=== PATIENT | male | born 1970 | race Caucasian/White ===

== ENCOUNTER 2016-09-26 21:16 | Emergency (ER) | payer OTHER, SELFPAY ==
[~2016-09-26] VITALS: Ht 170.2 cm; Wt 95.1 kg
[~2016-09-26 21:16] MED LIST: FLEX10TA2 PO; IBUP200C PO; MUCINEX PO; NAPR500T PO; NASAL SPRAY; NORCOTAB PO; WELLBUTRIN PO
[2016-09-26] MEDS ORDERED: IPRATROPIUM 0.5MG/ALBUTEROL 2.5MG INH SOL UD 3ML (DUONEB)(J7620) NEB ONE (22:30)
[2016-09-26 22:35] LABS: BASO % 0.7 % (0.0-1.0); EOS # 0.1 K/mm3 (0.0-0.50); EOS % 1.6 % (0.0-3.0); LARGE UNSTAINED CELL # 0.1 K/mm3 (0.0-0.4); LARGE UNSTAINED CELL % 1.2 % (0.0-4.0); LYMPH # 1.4 K/mm3 (1.5-4.5); LYMPH % 25.3 % (24.0-44.0); MEAN CORPUSCULAR HEMOGLOBIN 30.1 pg (27.0-33.0); MEAN CORPUSCULAR HGB CONC 32.7 g/dl (32.0-36.5); MEAN CORPUSCULAR VOLUME 91.9 fl (80.0-96.0); MONO # 0.3 K/mm3 (0.0-0.8); MONO % 4.9 % (0.0-5.0); NEUTROPHILS # 3.6 K/mm3 (1.8-7.7); NEUTROPHILS % 66.3 % (36.0-66.0); PLATELET COUNT, AUTOMATED 235 k/mm3 (150-450); WHITE BLOOD COUNT 5.4 K/mm3 (4.0-10.0)
[2016-09-26 22:37] LABS: INR 0.99
[2016-09-26] MEDS ORDERED: ASPIRIN 325 MG TAB PO ONE (22:45)
[2016-09-26 22:50] LABS: ALBUMIN 3.7 GM/DL (3.2-5.2); ALBUMIN/GLOBULIN RATIO 1.48 (1.00-1.93); ALKALINE PHOSPHATASE 108 U/L (45-117); ALT/SGPT 57 U/L (12-78); ANION GAP 9 MEQ/L (8-16); AST/SGOT 30 U/L (15-37); BILIRUBIN,DIRECT 0.1 MG/DL (0.0-0.2); BILIRUBIN,TOTAL 0.4 MG/DL (0.2-1.0); BLOOD UREA NITROGEN 20 MG/DL (7-18); CALCIUM LEVEL 8.6 MG/DL (8.5-10.1); CARBON DIOXIDE LEVEL 24 MEQ/L (21-32); CHLORIDE LEVEL 111 MEQ/L (98-107); CREATININE FOR GFR 1.13 MG/DL (0.70-1.30); FREE T4 0.98 NG/DL (0.76-1.46); GLOMERULAR FILTRATION RATE > 60.0 (>60); GLUCOSE, FASTING 125 MG/DL (70-105); POTASSIUM SERUM 4.1 MEQ/L (3.5-5.1); SODIUM LEVEL 144 MEQ/L (136-145); TOTAL PROTEIN 6.2 GM/DL (6.4-8.2)
[2016-09-26] MEDS ORDERED: ISOVUE-370 76% 100ML VIAL (Q9967) As Ordered ONE (23:39)
--- NOTE | 2016-09-27 00:40 | REPUSA ---
CLINICAL HISTORY: Dyspnea, exclude PE. TECHNIQUE: Multiple incremental axial, coronal and oblique images are obtained from the thoracic inle t to the upper abdomen. Intravenous contrast material was administered as per pulmonary embolism prot ocol. COMMENTS: Moderate cardiomegaly. Mildly enlarged that mediastinal, right hilar and subcarinal lymph nodes with the largest measuring 1 .4 cm. Moderate central pulmonary venous congestion. Interstitial pulmonary edema. Groundglass densities suggestive of developing alveolar pulmonary edema. There is excellent opacification of pulmonary arterial system without evidence for pulmonary embolism . Aorta is of normal caliber without evidence for dissection or aneurysm. Small bilateral pleural effusions. There is no evidence of hilar or mediastinal lymphadenopathy. Images of the upper abdomen demonstrate no evidence of adrenal mass. The bony structures are free of lytic or blastic lesions. IMPRESSION: No evidence for pulmonary embolism. Small pleural effusions. Pulmonary edema. Interstitial and developing alveolar edema. Small pleural effusions. Mild mediastinal and hilar lymphadenopathy. Thank you for your kind referral of this patient.
[2016-09-27 05:24] VITALS: BP 126/78
[2016-09-27] MEDS ORDERED: ALBUTEROL 90 MCG/ACT 8GM HFA INHALER INH ONE (05:30)
--- NOTE | 2016-09-27 07:56 | REP ---
PA and lateral chest: Comparison is 03/05/2013. The cardiac size is enlarged as an interval change. There are no focal infiltrates or effusions. There are no interstitial infiltrates. Lung campbell otherwise clear. The mediastinum is unremarkable. There are old healed right rib fractures. Impression: Cardiomegaly. Lung campbell are clear. Signed by Lucas Lux MD 09/27/2016 07:46 A
--- NOTE | 2016-09-27 09:47 | ED PDOC ---
Post-Departure Follow-Up certified letter sent Cande Dior MD Sep 27, 2016 09:47
--- NOTE | 2016-09-27 10:41 | ECGEPIP ---
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
--- NOTE | 2016-09-27 10:49 | ECGEPIP ---
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
[2016-12-26] MEDS ORDERED: FURO40TA2 PO (20:09)
== END 2016-09-27 05:42 | disposition home or self-care (01) ==
LOC: M ED 21:16
DX: I42.9 Cardiomyopathy, unspecified (principal); R06.02 Shortness of breath; E78.5 Hyperlipidemia, unspecified; F17.200 Nicotine dependence, unspecified, uncomplicated; J90 Pleural effusion, not elsewhere classified; J81.0 Acute pulmonary edema; I51.7 Cardiomegaly
CPT/HCPCS: 36415; 71020; 71275; 80048; 80076; 82550; 82553; 83880; 84439; 84443; 85025; 85610; 85730; 93005; 93041; 94760; 99285; Q9967

== ENCOUNTER 2016-10-12 18:05 | Inpatient (IN) | payer SELFPAY ==
[~2016-10-12] VITALS: Ht 170.2 cm; Wt 92.1 kg
--- NOTE | 2016-10-12 18:44 | ECGEPIP ---
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
[2016-10-12 18:56] LABS: BASO % 0.8 % (0.0-1.0); EOS # 0.1 K/mm3 (0.0-0.50); EOS % 1.2 % (0.0-3.0); LARGE UNSTAINED CELL # 0.1 K/mm3 (0.0-0.4); LARGE UNSTAINED CELL % 1.3 % (0.0-4.0); LYMPH # 1.2 K/mm3 (1.5-4.5); LYMPH % 21.4 % (24.0-44.0); MEAN CORPUSCULAR HEMOGLOBIN 30.7 pg (27.0-33.0); MEAN CORPUSCULAR VOLUME 92.8 fl (80.0-96.0); MONO # 0.4 K/mm3 (0.0-0.8); MONO % 6.7 % (0.0-5.0); NEUTROPHILS # 3.9 K/mm3 (1.8-7.7); NEUTROPHILS % 68.5 % (36.0-66.0); PLATELET COUNT, AUTOMATED 285 k/mm3 (150-450); RED CELL DISTRIBUTION WIDTH 13.3 % (11.5-14.5); WHITE BLOOD COUNT 5.6 K/mm3 (4.0-10.0)
[2016-10-12] MEDS ORDERED: IPRATROPIUM 0.5MG/ALBUTEROL 2.5MG INH SOL UD 3ML (DUONEB)(J7620) NEB ONE (19:00)
[2016-10-12 19:05] LABS: INR 1.04
[2016-10-12 19:21] LABS: ANION GAP 8 MEQ/L (8-16); BLOOD UREA NITROGEN 21 MG/DL (7-18); CALCIUM LEVEL 8.3 MG/DL (8.5-10.1); CARBON DIOXIDE LEVEL 26 MEQ/L (21-32); CHLORIDE LEVEL 112 MEQ/L (98-107); CREATININE FOR GFR 1.13 MG/DL (0.70-1.30); GLOMERULAR FILTRATION RATE > 60.0 (>60); GLUCOSE, FASTING 103 MG/DL (70-105); POTASSIUM SERUM 4.1 MEQ/L (3.5-5.1); SODIUM LEVEL 146 MEQ/L (136-145)
[2016-10-12 19:22] LABS: ALBUMIN 3.3 GM/DL (3.2-5.2); ALBUMIN/GLOBULIN RATIO 1.06 (1.00-1.93); BILIRUBIN,DIRECT 0.2 MG/DL (0.0-0.2); BILIRUBIN,TOTAL 0.6 MG/DL (0.2-1.0); TOTAL PROTEIN 6.4 GM/DL (6.4-8.2)
[2016-10-12] MEDS ORDERED: FUROSEMIDE 40 MG/4 ML VIAL (J1940) IV ONE (20:00)
[2016-10-12] MEDS ORDERED: ASPI325T PO (20:13)
[2016-10-12] MEDS ORDERED: VITMTA PO (20:13)
[2016-10-12] MEDS ORDERED: ALBUTEROL 90 MCG/ACT 8GM HFA INHALER INH PRN (21:30)
[2016-10-12] MEDS ORDERED: NICOTINE 14 MG/24 HR TRANSDERMAL TD ONE (21:45)
[2016-10-12 23:00] VITALS: BP 144/98
--- NOTE | 2016-10-12 23:13 | HPEPDOC ---
General Date of Admission Oct 12, 2016 at 20:26 Primary Care Physician: Teddy Carpenter [facility] Attending Physician: KARINA SON MD Chief Complaint The patient is a 45-year-old male admitted with a reason for visit of Chf Exacerbation. Source: Patient, Family, RN notes reviewed, Old records Exam Limitations: No limitations Timing/Duration: Week(s) Severity: Moderate Associated Symptoms: Shortness of breath History of Present Illness Mr. Boland is a 45-year-old male who presents to [facility] emergency Department with shortness of breath. He is accompanied by his . Past medical history significant for tobacco dependence, depression, and history of cervical lymphadenitis. Patient is newly diagnosed with congestive heart failure. The patient reports that he has shortness of breath and lower extremity swelling. He reports that it started a couple weeks ago which is when he presented to the emergency department. He reports that imaging studies were performed at that time and he was told that he had an "enlarged heart." He was not admitted at that time. He states that 2 days ago he developed fluid on his legs and reports similar symptoms as a couple weeks ago. He elevated his legs which helped with the fluid some. He continued to work throughout this time and reports shortness of breath with exertion. He is on 2 L nasal cannula during my evaluation. Patient is not oxygen dependent at home. Admits to orthopnea, PND, sleeps with one pillow at night, but prefers to sleep in a recliner or a kitchen chair and states that he feels better when he is upright. Prior to couple weeks ago patient states that he is able to perform his activities of daily living, ascending descend stairs, and walk a city block without feeling short of breath. Also admits to a cough productive of green phlegm and states that the cough started a couple weeks ago. Patient denies recent upper respiratory infections or pneumonia. The only medications patient takes is an aspirin and a multivitamin which he started a couple weeks ago. Denies a history of cancer or taking any cancer medications. Patient further denies any illicit substance abuse. Chest x-ray in the emergency department showed mild CHF and a BNP in the emergency department was 971. Besides the positive review of systems listed above patient also reports occasional watery eyes, and episode of nausea which relieved spontaneously, low back pain, the occasional pain with defecation, weakness with exertion, weight gain, and edema in his lower extremities and abdomen. Hospitalist service was consulted and patient was admitted for further medical management. Home Medications Scheduled Aspirin (Aspirin) 325 Mg Tab, 325 MG PO DAILY, (Reported) Multivitamins *[facility] STOCKED* (Thera M Plus *[facility] STOCKED*) 1 Tab Tab, 1 TAB PO DAILY, (Reported) Allergies Coded Allergies: No Known Allergies (Unverified , 05/13/12) Past Medical History Medical History 1. Tobacco dependence 2. Depression 3. History of cervical lymphadenitis 4. Newly diagnosed congestive heart failure Surgical History 1. 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 Environmental exposures to chemicals related to employment Admits to tobacco dependence, half a pack to a pack per day for the last 30 years Admits to occasional alcohol use Denies illicit drug abuse Denies travel, domestic or international Review of Symptoms Constitutional: Reports: Weakness (with exertion), Other (weight gain), Denies: Chills, Fever, Night Sweats Eyes: Reports: Other (occasional watery eyes), Denies: Pain, Vision change, Conjunctivae inflammation ENT: Denies: Head Aches, Dysphagia, Sinus Congestion, Post Nasal Drip, Sore Throat, Epistaxis Skin: Denies: Rash, Lesions Pulmonary: Reports: Dyspnea (at rest and with exertion), Cough (productive of green phlegm) Cardiovascular: Reports: Orthopnea, Paroxysmal Noc. Dyspnea, Edema (bilateral lower extremities, +1 pitting edema 3/4 up the calf), Other Symptoms (abdominal fullness/distention), Denies: Chest Pain, Palpitations, Lt Headedness Gastrointestinal: Reports: Nausea (one episode with spontaneous relief), Other Symptoms (occasional pain with defecation), Denies: Vomiting, Abdominal Pain, Diarrhea, Constipation, Melena, Hematochezia Genitourinary: Denies: Dysuria, Frequency, Incontinence, Hematuria Hematologic: Denies: Bruising, Bleeding Excessively Endocrine: Denies: Polydipsia, Polyphagia, Polyuria Musculoskeletal: Reports: Back Pain (low back), Denies: Shoulder Pain, Joint Pain Neurological: Reports: Weakness (with exertion), Denies: Numbness Physical Examination General Exam: Positive: Alert, Cooperative, No Acute Distress Eye Exam: Positive: PERRLA, Conjunctiva & lids normal, EOMI, Negative: Sclera icteric, Ptosis ENT Exam: Positive: Atraumatic, Pharynx Normal, Tongue Midline, Nares Patent, Negative: Mucous membr. moist/pink (mucous members are dry), Pharyngeal Edema Neck Exam: Positive: Supple, +2 carotid pulse wo bruit, Negative: JVD, thyromegaly, Lymphadenopathy Chest Exam: Positive: Clear to auscultation, Normal air movement, Rales ( bilateral lower lobes) Heart Exam: Positive: Rate Normal, Tachycardic, Regular Rhythm, Normal S1, Normal S2, Negative: Murmurs, Rubs Telemetry: Positive: Tachycardia Abdomen Exam: Positive: Normal bowel sounds, Soft, Other (distended), Negative: Tenderness, Hepatospenomegaly, Mass, Hernia Extremity Exam: Positive: Edema (bilateral lower extremity, +1 pitting edema [address] quarters of the way up the calf), Normal pulses, Negative: Clubbing, Cyanosis, Tenderness Skin Exam: Positive: Nl turgor and temperature, Negative: Rash, Breakdown Neuro Exam: Positive: Normal Speech, Strength at 5/5 X4 ext, Cranial Nerves 3- 12 NL Other physical findings Chest x-ray IMPRESSION: Mild CHF Lower extremity duplex ultrasound IMPRESSION: No ultrasound evidence of DVT Vital Signs Vital Signs Date Time Temp Pulse Resp B/P (MAP) Pulse Ox O2 Delivery O2 Flow Rate FiO2 10/12/16 21:59 98 132/96 (108) 98 10/12/16 18:45 Nasal Cannula 2.0 10/12/16 18:05 97.9 16 Height (in): 67 Weight (kg): 99.6 BMI (kg): 34.4 Laboratory Data Labs 24H Laboratory Tests 2 10/12/16 18:41: White Blood Count 5.6, Red Blood Count 4.48, Hemoglobin 13.7L, Hematocrit 41.6L , Mean Corpuscular Volume 92.8, Mean Corpuscular Hemoglobin 30.7, Mean Corpuscular Hemoglobin Concent 33.0, Red Cell Distribution Width 13.3, Platelet Count 285, Neutrophils (%) (Auto) 68.5H, Lymphocytes (%) (Auto) 21.4L, Monocytes (%) (Auto) 6.7H, Eosinophils (%) (Auto) 1.2, Basophils (%) (Auto) 0.8 , Neutrophils # (Auto) 3.9, Lymphocytes # (Auto) 1.2L, Monocytes # (Auto) 0.4, Eosinophils # (Auto) 0.1, Basophils # (Auto) 0.0, Large Unclassified Cells % 1.3 , Large Unclassified Cells # 0.1, Lactic Acid Level 1.2, Aspartate Amino Transf (AST/SGOT) 46H, Alanine Aminotransferase (ALT/SGPT) 59, Alkaline Phosphatase 150H, Total Bilirubin 0.6, Direct Bilirubin 0.2, B-Type Natriuretic Peptide 971H , Total Protein 6.4, Albumin 3.3, Albumin/Globulin Ratio 1.06 10/12/16 18:42: Prothrombin Time 13.7, Prothromb Time International Ratio 1.04, Anion Gap 8, Glomerular Filtration Rate > 60.0, Blood Urea Nitrogen 21H, Creatinine 1.13, Sodium Level 146H, Potassium Level 4.1, Chloride Level 112H, Carbon Dioxide Level 26, Calcium Level 8.3L, Total Creatine Kinase 125, Creatine Kinase MB 1.7 , Creatine Kinase MB Relative Index 1.36, Troponin I 0.02 10/12/16 18:47: Estimated Mean Plasma Glucose 114H, Hemoglobin A1c 5.6 CBC/BMP Laboratory Tests 10/12/16 18:41 Red Blood Count 4.48, Mean Corpuscular Volume 92.8, Mean Corpuscular Hemoglobin 30.7, Mean Corpuscular Hemoglobin Concent 33.0, Red Cell Distribution Width 13.3 , Neutrophils (%) (Auto) 68.5 H, Lymphocytes (%) (Auto) 21.4 L, Monocytes (%) ( Auto) 6.7 H, Eosinophils (%) (Auto) 1.2, Basophils (%) (Auto) 0.8, Neutrophils # (Auto) 3.9, Lymphocytes # (Auto) 1.2 L, Monocytes # (Auto) 0.4, Eosinophils # (Auto) 0.1, Basophils # (Auto) 0.0 10/12/16 18:42 Calcium Level 8.3 L, Total Creatine Kinase 125 RAD Interpretation STUDY: CXR (mild CHF) Rad Actions: Report Reviewed, Films Reviewed Assessment/Plan This is a 45-year-old male with a Past medical history significant for tobacco dependence, depression, and history of cervical lymphadenitis. Patient is newly diagnosed with congestive heart failure who presents with shortness of breath secondary to congestive heart failure. Plan / VTE VTE Prophylaxis Ordered?: Yes (heparin 5000 units every 8 hours) Plan Plan Congestive heart failure Clinical diagnosis. BNP 971. Chest x-ray shows mild CHF. Family history is alarming for underlying hereditary cardiac disease. Ruled out infection, substance abuse, cancer medications as a cause for patient's congestive heart failure. Obtaining echocardiogram to determine type of congestive heart failure. Obtaining liver profile, lipids, TSH, A1c, serial cardiac enzymes. Initiating Lasix 40 mg IV twice a day. Patient admitted to the progressive care unit. Oxygen therapy orders to maintain saturations above 92%. Albuterol inhaler as needed. Fluid restriction of 1500 mL. Disposition Admit: Progressive care unit Anticipated hospitalization: 2 nights Attending: Dr. Orellana Diet: Continue Current (no added salt) Activity: Encourage Ambulation Medications: Change to IV Diagnostics: Check Labs, Repeat Labs in AM, TTE Anticipated Discharge: Home MING SINGH Oct 12, 2016 23:13
[2016-10-12] MEDS ORDERED: SLF 3 ML SYR IV PRN (23:30)
[2016-10-13 04:02] VITALS: BP 139/99
[2016-10-13] MEDS: HEPARIN SOD (PORCINE) 5000 UNITS/ML VIAL SC SCH ×3 (04:06→22:00)
[2016-10-13] MEDS: SLF 3 ML SYR IV SCH ×3 (04:06→22:00)
[2016-10-13 05:35] LABS: BASO % 0.9 % (0.0-1.0); EOS # 0.1 K/mm3 (0.0-0.50); EOS % 1.2 % (0.0-3.0); LARGE UNSTAINED CELL # 0.1 K/mm3 (0.0-0.4); LARGE UNSTAINED CELL % 1.3 % (0.0-4.0); LYMPH # 1.3 K/mm3 (1.5-4.5); LYMPH % 21.9 % (24.0-44.0); MEAN CORPUSCULAR HGB CONC 32.5 g/dl (32.0-36.5); MEAN CORPUSCULAR VOLUME 92.2 fl (80.0-96.0); MONO # 0.4 K/mm3 (0.0-0.8); MONO % 6.5 % (0.0-5.0); NEUTROPHILS # 3.8 K/mm3 (1.8-7.7); NEUTROPHILS % 68.3 % (36.0-66.0); PLATELET COUNT, AUTOMATED 250 k/mm3 (150-450); RED CELL DISTRIBUTION WIDTH 13.5 % (11.5-14.5); WHITE BLOOD COUNT 5.6 K/mm3 (4.0-10.0)
[2016-10-13 05:52] LABS: ANION GAP 9 MEQ/L (8-16); BLOOD UREA NITROGEN 18 MG/DL (7-18); CALCIUM LEVEL 8.4 MG/DL (8.5-10.1); CARBON DIOXIDE LEVEL 26 MEQ/L (21-32); CHLORIDE LEVEL 110 MEQ/L (98-107); CREATININE FOR GFR 1.02 MG/DL (0.70-1.30); GLOMERULAR FILTRATION RATE > 60.0 (>60); GLUCOSE, FASTING 119 MG/DL (70-105); POTASSIUM SERUM 3.5 MEQ/L (3.5-5.1); SODIUM LEVEL 145 MEQ/L (136-145)
--- NOTE | 2016-10-13 07:29 | REP ---
DEEP VENOUS ULTRASONOGRAPHY BILATERAL THIGHS, RULE OUT DVT: REASON: Pain and swelling bilaterally. TECHNIQUE: Multiple ultrasonographic images of the deep venous structures of the thigh were obtained from the common femoral vein to the popliteal vein along with Doppler interrogation and color flow Doppler images. FINDINGS: There is no abnormal echogenic material seen within any of the visualized deep venous structures that would suggest acute thrombosis. Coaptation is unremarkable throughout. Doppler interrogation shows an expected response to respiratory variability and augmentation. The color flow images show what appears to be a normal vascular pattern throughout. IMPRESSION: There is no ultrasonographic evidence of deep venous thrombosis involving any of the visualized deep venous structures of the bilateral thighs, as described above. Signed by Tre Tidwell DO 10/13/2016 02:44 P
--- NOTE | 2016-10-13 07:30 | REP ---
REASON: Dyspnea and cough. COMPARISON: PA and lateral view of the chest, 09/26/2016. The technique utilized in obtaining the radiograph has magnified the cardiac silhouette and accentuated the interstitial markings. There is global cardiomegaly, status quo. Once again, there is diffuse increase in the interstitial markings throughout the lung campbell accentuated by technique. No acute patchy parenchymal opacities or pleural effusions have developed. There is no change in the osseous structures. IMPRESSION: Cardiomegaly and mild CHF. Signed by Tre Tidwell DO 10/13/2016 02:44 P
[2016-10-13] MEDS: FUROSEMIDE 40 MG/4 ML VIAL (J1940) IV SCH ×2 (07:56→17:43)
[2016-10-13] MEDS: NICOTINE 14 MG/24 HR TRANSDERMAL TD SCH (07:57)
[2016-10-13] MEDS: ASPIRIN 325 MG TAB PO SCH (07:57)
[2016-10-13 08:00] VITALS: BP 138/90
[2016-10-13] MEDS ORDERED: POTASSIUM CHLORIDE 10 MEQ SR TABLET PO ONE (08:00)
[2016-10-13 12:00] VITALS: BP 116/69
--- NOTE | 2016-10-13 14:33 | IPNPDOC ---
Text Note Date of Service The patient was seen on 10/13/16. NOTE Subjective: The patient states his dyspnea is improving. Denies any chest pain/ palpitations. Objective: Vitals: (see below) General: No acute distress, laying comfortably in bed. HEENT: Moist mucous membranes. Neck: No JVD or lymphadenopathy Cardiac: RRR, No murmurs Pulm: Coarse crackles at the bases bilaterally. B/l. No wheezing, rhonchi Abd: NT/ND + BS Ext: Trace to 1+ pitting edema bilateral lower extremities. No cyanosis. Labs (see below) Images: Assessment/Plan 1. Decompensated Congestive heart failure- ? Systolic versus diastolic. Echocardiogram pending. Strong family history of underlying cardiac disease. We will continue IV diuresis. Patient will need outpatient cardiology follow-up with Dr. Duff. 2. Nonsustained ventricular tachycardia, asymptomatic. Continue to monitor on telemetry. Replace K, mag. We'll start on low-dose beta mercedes. 2. Tobacco abuse- cessation consulted 3. History of depression follow-up outpatient 4. DVT prophy: Out of bed ambulating VS,Fishbone, I+O VS, Fishbone, I+O Laboratory Tests 10/12/16 18:41 Red Blood Count 4.48, Mean Corpuscular Volume 92.8, Mean Corpuscular Hemoglobin 30.7, Mean Corpuscular Hemoglobin Concent 33.0, Red Cell Distribution Width 13.3 , Neutrophils (%) (Auto) 68.5 H, Lymphocytes (%) (Auto) 21.4 L, Monocytes (%) ( Auto) 6.7 H, Eosinophils (%) (Auto) 1.2, Basophils (%) (Auto) 0.8, Neutrophils # (Auto) 3.9, Lymphocytes # (Auto) 1.2 L, Monocytes # (Auto) 0.4, Eosinophils # (Auto) 0.1, Basophils # (Auto) 0.0 10/12/16 18:42 Calcium Level 8.3 L, Total Creatine Kinase 125 10/13/16 04:48 Red Blood Count 4.56, Mean Corpuscular Volume 92.2, Mean Corpuscular Hemoglobin 30.0, Mean Corpuscular Hemoglobin Concent 32.5, Red Cell Distribution Width 13.5 , Neutrophils (%) (Auto) 68.3 H, Lymphocytes (%) (Auto) 21.9 L, Monocytes (%) ( Auto) 6.5 H, Eosinophils (%) (Auto) 1.2, Basophils (%) (Auto) 0.9, Neutrophils # (Auto) 3.8, Lymphocytes # (Auto) 1.3 L, Monocytes # (Auto) 0.4, Eosinophils # (Auto) 0.1, Basophils # (Auto) 0.0, Calcium Level 8.4 L, Total Creatine Kinase 99 Vital Signs Date Time Temp Pulse Resp B/P (MAP) Pulse Ox O2 Delivery O2 Flow Rate FiO2 10/13/16 08:00 97.9 93 18 138/90 (106) 96 Room Air 10/12/16 18:45 2.0 I&O- Last 24 Hours up to 6 AM 10/13/16 06:00 Intake Total 300 ml Output Total 4860 ml Balance -4560 ml KIM MCDOWELL MD Oct 13, 2016 14:33
[2016-10-13 15:34] LABS: ANION GAP 8 MEQ/L (8-16); BLOOD UREA NITROGEN 18 MG/DL (7-18); CALCIUM LEVEL 8.1 MG/DL (8.5-10.1); CARBON DIOXIDE LEVEL 29 MEQ/L (21-32); CHLORIDE LEVEL 108 MEQ/L (98-107); CREATININE FOR GFR 0.99 MG/DL (0.70-1.30); GLOMERULAR FILTRATION RATE > 60.0 (>60); GLUCOSE, FASTING 100 MG/DL (70-105); MAGNESIUM LEVEL 2.1 MG/DL (1.8-2.4); SODIUM LEVEL 145 MEQ/L (136-145)
[2016-10-13] MEDS: METOPROLOL TART 12.5 MG PER 1/2 TAB PO SCH ×2 (15:39→21:00)
[2016-10-13 16:00] VITALS: BP 117/80
[2016-10-13] MEDS ORDERED: LISINOPRIL *2.5 MG* TAB PO ONE (16:00)
[2016-10-13] MEDS: SPIRONOLACTONE 12.5MG PER 1/2 TABLET PO SCH (17:43)
--- NOTE | 2016-10-13 18:01 | ECHO ---
DATE OF PROCEDURE: 10/13/2016 REFERRING PHYSICIAN: Hillary Waddell DO INDICATION: Dyspnea. Congestive heart failure. HEIGHT: 170 cm WEIGHT: 100 kg DIMENSIONS: IVS: 1.0 LV: 7.1 LVPW: 1.1 LA: 4.6 Aorta: 3.1 FINDINGS: The study is of good technical quality. Left ventricle is severely dilated and severely globally hypokinetic. I estimate overall ejection fraction (EF) in neighborhood of 10-15%. Right ventricle is also dilated and hypokinetic. Both atria appear dilated. Aortic, mitral, tricuspid and pulmonic valves all appear normal. No pericardial effusion is noted. Inferior vena cava is markedly dilated and there is no appreciable collapse with respiration indicative of very high central venous pressure. Aortic root is normal. Aortic arch was not visualized. Abdominal aorta was poorly seen, but grossly appears normal. Doppler interrogation reveals competent aortic valve. There is mild or maybe hehy-ex-yaexrwyl mitral insufficiency and probably moderate tricuspid insufficiency. Calculated pulmonary artery pressure is in high 40s, low 50s corresponding to at least moderate pulmonary hypertension. Pulmonic valve is functionally competent. Mitral inflow pattern and tissue Doppler imaging of mitral annulus revealed restrictive filling pattern indicative of very high left ventricle and diastolic pressure. Tissue Doppler velocities of mitral annulus are 3.4 and 7.3 cm/s respectively. CONCLUSIONS: 1. Study is of good technical quality. 2. Severely dilated globally hypokinetic left ventricle with severe left ventricle (LV) systolic dysfunction. Advanced diastolic dysfunction. 3. Yxbn-lq-zgpoogyq mitral insufficiency and moderate tricuspid insufficiency. 4. Very high central venous pressure and at least moderate pulmonary hypertension. COMMENT: Subacute bacterial endocarditis (SBE) prophylaxis is not recommended. Overall study most consistent with nonischemic cardiomyopathy. MTDD
[2016-10-13 20:00] VITALS: BP 120/79
[2016-10-13 23:59] VITALS: BP 111/74
[2016-10-14 04:00] VITALS: BP 129/82
[2016-10-14] MEDS: SLF 3 ML SYR IV SCH ×3 (05:22→20:39)
[2016-10-14] MEDS: HEPARIN SOD (PORCINE) 5000 UNITS/ML VIAL SC SCH ×3 (05:22→20:39)
[2016-10-14 06:07] LABS: BASO % 0.8 % (0.0-1.0); EOS # 0.1 K/mm3 (0.0-0.50); EOS % 2.8 % (0.0-3.0); LYMPH # 1.4 K/mm3 (1.5-4.5); LYMPH % 31.3 % (24.0-44.0); MEAN CORPUSCULAR HEMOGLOBIN 30.4 pg (27.0-33.0); MEAN CORPUSCULAR HGB CONC 33.1 g/dl (32.0-36.5); MONO # 0.3 K/mm3 (0.0-0.8); MONO % 6.6 % (0.0-5.0); NEUTROPHILS # 2.4 K/mm3 (1.8-7.7); NEUTROPHILS % 57.5 % (36.0-66.0); PLATELET COUNT, AUTOMATED 272 k/mm3 (150-450); RED CELL DISTRIBUTION WIDTH 13.6 % (11.5-14.5); WHITE BLOOD COUNT 4.2 K/mm3 (4.0-10.0)
[2016-10-14 06:25] LABS: ANION GAP 7 MEQ/L (8-16); BLOOD UREA NITROGEN 23 MG/DL (7-18); CALCIUM LEVEL 8.6 MG/DL (8.5-10.1); CARBON DIOXIDE LEVEL 28 MEQ/L (21-32); CHLORIDE LEVEL 110 MEQ/L (98-107); CREATININE FOR GFR 1.01 MG/DL (0.70-1.30); GLOMERULAR FILTRATION RATE > 60.0 (>60); GLUCOSE, FASTING 99 MG/DL (70-105); POTASSIUM SERUM 4.4 MEQ/L (3.5-5.1); SODIUM LEVEL 145 MEQ/L (136-145)
[2016-10-14 07:40] VITALS: BP 102/61
[2016-10-14] MEDS ORDERED: ENTER DRUG NAME HERE (PATIENT'S OWN MED) INH SCH (09:00)
[2016-10-14] MEDS ORDERED: FUROSEMIDE 40 MG/4 ML VIAL (J1940) IV SCH (09:00)
[2016-10-14] MEDS: NICOTINE 14 MG/24 HR TRANSDERMAL TD SCH (10:15)
[2016-10-14] MEDS: ASPIRIN 325 MG TAB PO SCH (10:18)
[2016-10-14] MEDS: LISINOPRIL *2.5 MG* TAB PO SCH (10:18)
[2016-10-14] MEDS: SPIRONOLACTONE 12.5MG PER 1/2 TABLET PO SCH (10:18)
[2016-10-14] MEDS: METOPROLOL TART 12.5 MG PER 1/2 TAB PO SCH ×2 (10:19→20:39)
[2016-10-14 12:00] VITALS: BP 101/67
--- NOTE | 2016-10-14 14:52 | IPNPDOC ---
Text Note Date of Service The patient was seen on 10/14/16. NOTE Subjective: The patient states his dyspnea is improving. Denies any chest pain/ palpitations. Objective: Vitals: (see below) General: No acute distress, laying comfortably in bed. HEENT: Moist mucous membranes. Neck: No JVD or lymphadenopathy Cardiac: RRR, No murmurs Pulm: Coarse crackles at the bases bilaterally. B/l. No wheezing, rhonchi Abd: NT/ND + BS Ext: Trace pitting edema bilateral lower extremities. No cyanosis. Labs (see below) Images: Echocardiogram 10/13/16 FINDINGS: The study is of good technical quality. Left ventricle is severely dilated and severely globally hypokinetic. I estimate overall ejection fraction (EF) in neighborhood of 10-15%. Right ventricle is also dilated and hypokinetic. Both atria appear dilated. Aortic, mitral, tricuspid and pulmonic valves all appear normal. No pericardial effusion is noted. Inferior vena cava is markedly dilated and there is no appreciable collapse with respiration indicative of very high central venous pressure. Aortic root is normal. Aortic arch was not visualized. Abdominal aorta was poorly seen, but grossly appears normal. Doppler interrogation reveals competent aortic valve. There is mild or maybe ocxk-ph-asduvlfc mitral insufficiency and probably moderate tricuspid insufficiency. Calculated pulmonary artery pressure is in high 40s, low 50s corresponding to at least moderate pulmonary hypertension. Pulmonic valve is functionally competent. Mitral inflow pattern and tissue Doppler imaging of mitral annulus revealed restrictive filling pattern indicative of very high left ventricle and diastolic pressure. Tissue Doppler velocities of mitral annulus are 3.4 and 7.3 cm/s respectively. CONCLUSIONS: 1. Study is of good technical quality. 2. Severely dilated globally hypokinetic left ventricle with severe left ventricle (LV) systolic dysfunction. Advanced diastolic dysfunction. 3. Yokp-ws-vuhubyuy mitral insufficiency and moderate tricuspid insufficiency. 4. Very high central venous pressure and at least moderate pulmonary hypertension. Assessment/Plan 1. Decompensated Severe Systolic Heart Failure- Echocardiogram (see above). Strong family history of underlying cardiac disease. We will continue diuresis. Cardiology consulted. Started on low dose BB, ACEi, Spironolactone. Will need life vest prior to d/c. Will need cardiac cath fairly soon. Patient will need outpatient cardiology follow-up with Dr. Duff. 2. Nonsustained ventricular tachycardia, asymptomatic. Continue to monitor on telemetry. Replace K, mag. We'll start on low-dose beta mercedes. 2. Tobacco abuse- cessation consulted 3. History of depression follow-up outpatient DVT prophy: Out of bed ambulating Prognosis guarded. VS,Fishbone, I+O VS, Fishbone, I+O Laboratory Tests 10/13/16 14:55 Calcium Level 8.1 L 10/14/16 05:42 Calcium Level 8.6, Red Blood Count 4.64, Mean Corpuscular Volume 92.0, Mean Corpuscular Hemoglobin 30.4, Mean Corpuscular Hemoglobin Concent 33.1, Red Cell Distribution Width 13.6, Neutrophils (%) (Auto) 57.5, Lymphocytes (%) (Auto) 31.3, Monocytes (%) (Auto) 6.6 H, Eosinophils (%) (Auto) 2.8, Basophils (%) ( Auto) 0.8, Neutrophils # (Auto) 2.4, Lymphocytes # (Auto) 1.4 L, Monocytes # ( Auto) 0.3, Eosinophils # (Auto) 0.1, Basophils # (Auto) 0.0 Vital Signs Date Time Temp Pulse Resp B/P (MAP) Pulse Ox O2 Delivery O2 Flow Rate FiO2 10/14/16 12:00 97.8 60 18 101/67 (78) 100 Room Air 10/13/16 20:00 1.0 I&O- Last 24 Hours up to 6 AM 10/14/16 06:00 Intake Total 1480 ml Output Total 3175 ml Balance -1695 ml KIM MCDOWELL MD Oct 14, 2016 14:52
[2016-10-14 16:00] VITALS: BP 100/66
[2016-10-14 20:01] VITALS: BP 113/73
--- NOTE | 2016-10-14 20:59 | CR ---
DATE OF CONSULTATION: 10/14/2016 REFERRING PROVIDER: Teddy Orellana MD PRIMARY CARE PROVIDER: CHIVO Anton REASON FOR CONSULT: Cardiomyopathy. HISTORY OF PRESENT ILLNESS: 45-year-old male with no prior history of hypertension, hyperlipidemia, diabetes mellitus, who has been having shortness of breath with activities, relieved with rest. About two weeks ago, he was at the ER, evaluated and discharged home. He was told that he has an enlarged heart and he was told to make an appointment to the office. He was discharged home on bronchodilators, but has not been taking it. He was not getting better with progressive shortness of breath, and he has developed increasing bilateral pedal edema, and also he was having orthopnea. He decided to come to the emergency room a couple of days ago on 10/12/2016 and was admitted with further management and monitoring with a diagnosis of decompensated congestive heart failure (CHF). He had an echocardiogram done this hospitalization on 10/12/2016 and it revealed a severely depressed global left ventricular systolic function estimated at 10-15% with severe global hypokinesis and a markedly dilated left ventricle. There was mild to moderate mitral regurgitation, moderate tricuspid regurgitation with probably moderate pulmonary hypertension, and a restrictive filling pattern was noted across the mitral valve annulus consistent with elevated left ventricular end diastolic pressure. While on telemetry, it was reported that he had a 6 beat run of ventricular tachycardia. Cardiology consult was called. When I saw Mr. Sven Boland this morning, he was sitting up in his bed in no acute distress at rest and his was at the bedside. He denies any chest pain or palpitations. He says that he feels better with less shortness of breath and no orthopnea. His pedal edema has improved significantly. He was able to sleep much better. He denies any prior history of syncope or near syncope. He denies any cough or hemoptysis or fever. He has no nausea, vomiting, diarrhea, melena or hematemesis. He has no focal manifestation. According to the , in the month of July he had an upper respiratory tract infection. There is no prior history of hypertension, hyperlipidemia, diabetes mellitus, significant valvular heart disease, congestive heart failure (CHF), atrial fibrillation, CVA, cardiomyopathy, sudden cardiac . There is no history of kidney disease, thyroid disorders, liver disease. PAST SURGICAL HISTORY: Positive for a fine needle aspiration of left cervical lymph node. Otherwise, unremarkable. MEDICATIONS PRIOR TO COMING TO HOSPITAL: - aspirin 325 mg by mouth daily CURRENT MEDICATIONS: - furosemide 40 mg by mouth daily - lisinopril 2.5 mg by mouth daily - aspirin 325 mg by mouth daily - nicotine patch applied daily as directed, 14 mg - metoprolol tartrate 12.5 mg by mouth twice a day - vcvmewmewgplu36.5 mg by mouth daily - heparin subcu - Proventil MDI two puffs every 6 hours as needed for shortness of breath FAMILY HISTORY: Positive for coronary artery disease in his mother. 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 He denies any EtOH abuse. He does smoke, less than one pack per day of cigarettes. He denies any illicit drugs. He has an adult son. ADVANCE DIRECTIVES: Patient is a FULL CODE. ALLERGIES: No known drug allergies. PHYSICAL EXAMINATION: On examination, patient is alert and oriented, in no acute distress at rest. His vital signs this evening reveal a blood pressure of 100/666 with a pulse of 61, respirations 20, and his maximum temperature is 97.3 degrees Fahrenheit with an oxygen saturation of 100% on room air. For 10/13/2016, he was in a negative fluid balance of 2.8 liters and on 10/12, it was 3.3 liters. His weight on admission was 99.6 kg and today is 91.1 kg. HEENT: Atraumatic. NECK: Supple, I could not appreciate any jugular venous distention (JVD) or carotid bruits while sitting up in the bed. LUNGS: Did not reveal any wheezing and there was minimal crackles at the bases. HEART EXAMINATION: Revealed normal S1 and S2 without gallops. The PMI is displaced inferiorly and laterally. There is no rub. There is a systolic murmur grade 1-2/6 at the lower left sternal border and at the apex with some minimal radiation to the axilla. ABDOMEN: Soft, nontender. Bowel sounds are active. EXTREMITIES: Reveal only trace bilateral ankle edema. No cyanosis or clubbing. NEUROLOGICAL EXAMINATION: Negative for focal deficits. LABS: CBC done today revealed a WBC of 4.2, hemoglobin 14.1, hematocrit 42.7 and platelets of 272,000. On admission, the CBC revealed a WBC of 5.6, hemoglobin 13.7, hematocrit 41.6 and platelets 285,000. PT on admission was 13.7 with an INR of 1.04. BMP on admission revealed a sodium of 145, potassium 4.4, chloride 110, CO2 28, BUN 23, creatinine 1.01, GFR more than 60, fasting glucose 99, and calcium 8.6. Serum Troponin was negative at 0.02. BNP on admission was 971. Liver enzymes on admission revealed a total bilirubin of 0.6, direct bilirubin of 0.2, AST 46, ALT 59 and alkaline phosphatase 150. Total protein was 6.4 and albumin 3.3. Lipid profile revealed a total cholesterol of 151, LDL 103.0, HDL 33, and total cholesterol/HDL ratio of 4.5. TSH is 2.40. Electrocardiogram on admission, 10/12/2016 at 18:38:38, revealed sinus tachycardia at 109 beats per minute, left axis deviation, left anterior hemiblock, left atrial abnormality, poor R wave progression. Persistent prior anteroseptal infarct, and IVCD. There is also nonspecific STT abnormalities. Last EKG on 09/27/2016 at 3:28:23 no remarkable change, but heartbeat was slower and there was slightly better R wave progression from V1 through V3. Chest x-ray on 10/12/2016 revealed cardiomegaly and mild congestive heart failure (CHF). Doppler of the lower extremities on 10/12/2016 revealed no evidence of deep vein thrombosis (DVT). IMPRESSION: Cardiomyopathy, severe with decompensated congestive heart failure (CHF). New diagnosed and started on treatment. Prior to that, patient was not on any cardiac medications. He has responded to current medications and will continue the same. It was reported that he had a 6 beat run of ventricular tachycardia, but could not be identified in the chart. The case was discussed with his hospitalist and also with the patient and his . He will continue current medications and a LifeVest will be arranged for him. He will need a cardiac catheterization looking for underlying coronary artery disease and this will be arranged for him as an outpatient. He most likely will need a implantable automatic implantable cardioverter-defibrillator (AICD). I do not believe that his function will improve enough to avoid that. He was strongly advised to avoid alcohol. A low salt diet was discussed with him as well as his , and he will monitor his weight daily and inform the office if he gains more than 3-4 pounds overnight. He has manifested understanding. He will need a BMP done to check his BUN, creatinine and serum potassium in about a week upon discharge from the hospital. This also was discussed with him as well as his . It was a pleasure to participate in the care of Mr. Sven Boland for his underlying cardiac condition. I will continue to monitor him along with you while in the hospital and upon discharge as an outpatient. Please do not hesitate to call if you have any questions. ACE
[2016-10-14 23:38] VITALS: BP 110/66
[2016-10-15 04:02] VITALS: BP 116/81
[2016-10-15] MEDS: SLF 3 ML SYR IV SCH ×3 (05:23→21:02)
[2016-10-15] MEDS: HEPARIN SOD (PORCINE) 5000 UNITS/ML VIAL SC SCH ×3 (05:23→21:02)
[2016-10-15 05:48] LABS: EOS # 0.1 K/mm3 (0.0-0.50); EOS % 1.9 % (0.0-3.0); LARGE UNSTAINED CELL # 0.1 K/mm3 (0.0-0.4); LARGE UNSTAINED CELL % 1.1 % (0.0-4.0); LYMPH # 1.3 K/mm3 (1.5-4.5); LYMPH % 25.2 % (24.0-44.0); MEAN CORPUSCULAR HGB CONC 32.4 g/dl (32.0-36.5); MEAN CORPUSCULAR VOLUME 92.5 fl (80.0-96.0); MONO # 0.3 K/mm3 (0.0-0.8); MONO % 5.6 % (0.0-5.0); NEUTROPHILS # 3.1 K/mm3 (1.8-7.7); NEUTROPHILS % 65.1 % (36.0-66.0); PLATELET COUNT, AUTOMATED 280 k/mm3 (150-450); RED CELL DISTRIBUTION WIDTH 13.5 % (11.5-14.5); WHITE BLOOD COUNT 4.8 K/mm3 (4.0-10.0)
[2016-10-15 05:56] LABS: ANION GAP 7 MEQ/L (8-16); BLOOD UREA NITROGEN 27 MG/DL (7-18); CALCIUM LEVEL 8.7 MG/DL (8.5-10.1); CARBON DIOXIDE LEVEL 28 MEQ/L (21-32); CHLORIDE LEVEL 108 MEQ/L (98-107); CREATININE FOR GFR 1.15 MG/DL (0.70-1.30); GLOMERULAR FILTRATION RATE > 60.0 (>60); GLUCOSE, FASTING 101 MG/DL (70-105); POTASSIUM SERUM 3.8 MEQ/L (3.5-5.1); SODIUM LEVEL 143 MEQ/L (136-145)
[2016-10-15 07:45] VITALS: BP 116/75
[2016-10-15] MEDS: NICOTINE 14 MG/24 HR TRANSDERMAL TD SCH (08:21)
[2016-10-15] MEDS: METOPROLOL TART 12.5 MG PER 1/2 TAB PO SCH ×2 (08:22→21:02)
[2016-10-15] MEDS: ASPIRIN 325 MG TAB PO SCH (08:23)
[2016-10-15] MEDS: LISINOPRIL *2.5 MG* TAB PO SCH (08:23)
[2016-10-15] MEDS: FUROSEMIDE 40 MG TAB PO SCH (08:23)
[2016-10-15] MEDS: SPIRONOLACTONE 12.5MG PER 1/2 TABLET PO SCH (08:23)
[2016-10-15] MEDS ORDERED: POTASSIUM CHLORIDE 10 MEQ SR TABLET PO ONE (08:30)
[2016-10-15 12:00] VITALS: BP 111/70
--- NOTE | 2016-10-15 15:07 | IPNPDOC ---
Text Note Date of Service The patient was seen on 10/15/16. NOTE Subjective: Feels well. Denies any chest pain/palpitations/SOB. Objective: Vitals: (see below) General: No acute distress, laying comfortably in bed. HEENT: Moist mucous membranes. Neck: No JVD or lymphadenopathy Cardiac: RRR, No murmurs Pulm: Coarse crackles at the bases bilaterally. B/l. No wheezing, rhonchi Abd: NT/ND + BS Ext: No edema. No cyanosis. Labs (see below) Images: Echocardiogram 10/13/16 FINDINGS: The study is of good technical quality. Left ventricle is severely dilated and severely globally hypokinetic. I estimate overall ejection fraction (EF) in neighborhood of 10-15%. Right ventricle is also dilated and hypokinetic. Both atria appear dilated. Aortic, mitral, tricuspid and pulmonic valves all appear normal. No pericardial effusion is noted. Inferior vena cava is markedly dilated and there is no appreciable collapse with respiration indicative of very high central venous pressure. Aortic root is normal. Aortic arch was not visualized. Abdominal aorta was poorly seen, but grossly appears normal. Doppler interrogation reveals competent aortic valve. There is mild or maybe qlqo-ks-eyfrfqhy mitral insufficiency and probably moderate tricuspid insufficiency. Calculated pulmonary artery pressure is in high 40s, low 50s corresponding to at least moderate pulmonary hypertension. Pulmonic valve is functionally competent. Mitral inflow pattern and tissue Doppler imaging of mitral annulus revealed restrictive filling pattern indicative of very high left ventricle and diastolic pressure. Tissue Doppler velocities of mitral annulus are 3.4 and 7.3 cm/s respectively. CONCLUSIONS: 1. Study is of good technical quality. 2. Severely dilated globally hypokinetic left ventricle with severe left ventricle (LV) systolic dysfunction. Advanced diastolic dysfunction. 3. Xftv-ni-elhweqrn mitral insufficiency and moderate tricuspid insufficiency. 4. Very high central venous pressure and at least moderate pulmonary hypertension. Assessment/Plan 1. Decompensated Severe Systolic Heart Failure- Echocardiogram (see above). Strong family history of underlying cardiac disease. We will continue diuresis. Cardiology consulted. Started on low dose BB, ACEi, Spironolactone. Will need life vest prior to d/c. Will need cardiac cath fairly soon. Patient will need outpatient cardiology follow-up with Dr. Duff. Awaiting Life Vest arrangements. Patient doesn't not have insurance and is unable to afford the $500 down payment for lease. Will discuss with CM regarding Medicaid/[place] care. 2. Nonsustained ventricular tachycardia, asymptomatic. Continue to monitor on telemetry. Replace K, mag. We'll start on low-dose beta mercedes. 2. Tobacco abuse- cessation consulted 3. History of depression follow-up outpatient DVT prophy: Out of bed ambulating Prognosis guarded. Pending Life Vest VS,Fishbone, I+O VS, Fishbone, I+O Laboratory Tests 10/15/16 05:02 Red Blood Count 4.60, Mean Corpuscular Volume 92.5, Mean Corpuscular Hemoglobin 30.0, Mean Corpuscular Hemoglobin Concent 32.4, Red Cell Distribution Width 13.5 , Neutrophils (%) (Auto) 65.1, Lymphocytes (%) (Auto) 25.2, Monocytes (%) (Auto ) 5.6 H, Eosinophils (%) (Auto) 1.9, Basophils (%) (Auto) 1.0, Neutrophils # ( Auto) 3.1, Lymphocytes # (Auto) 1.3 L, Monocytes # (Auto) 0.3, Eosinophils # ( Auto) 0.1, Basophils # (Auto) 0.0, Calcium Level 8.7 Vital Signs Date Time Temp Pulse Resp B/P (MAP) Pulse Ox O2 Delivery O2 Flow Rate FiO2 10/15/16 12:00 96.0 80 18 111/70 (84) 100 Room Air 10/13/16 20:00 1.0 I&O- Last 24 Hours up to 6 AM 10/15/16 06:00 Intake Total 1880 ml Output Total 450 ml Balance 1430 ml KIM MCDOWELL MD Oct 15, 2016 15:07
[2016-10-15 16:00] VITALS: BP 110/72
[2016-10-15 19:24] VITALS: BP 109/77
[2016-10-15 19:30] VITALS: BP 109/77
[2016-10-16] VITALS (8 sets, daily range): BP systolic 102–127; BP diastolic 58–78
[2016-10-16] MEDS: SLF 3 ML SYR IV SCH ×3 (05:00→20:43)
[2016-10-16] MEDS: HEPARIN SOD (PORCINE) 5000 UNITS/ML VIAL SC SCH ×3 (05:00→20:42)
[2016-10-16 05:50] LABS: BASO % 0.9 % (0.0-1.0); LARGE UNSTAINED CELL # 0.1 K/mm3 (0.0-0.4); LARGE UNSTAINED CELL % 1.2 % (0.0-4.0); LYMPH # 1.3 K/mm3 (1.5-4.5); LYMPH % 24.6 % (24.0-44.0); MEAN CORPUSCULAR HEMOGLOBIN 30.5 pg (27.0-33.0); MEAN CORPUSCULAR HGB CONC 32.8 g/dl (32.0-36.5); MEAN CORPUSCULAR VOLUME 92.8 fl (80.0-96.0); MONO # 0.3 K/mm3 (0.0-0.8); NEUTROPHILS # 3.3 K/mm3 (1.8-7.7); NEUTROPHILS % 66.2 % (36.0-66.0); PLATELET COUNT, AUTOMATED 253 k/mm3 (150-450); RED CELL DISTRIBUTION WIDTH 13.5 % (11.5-14.5)
[2016-10-16 06:03] LABS: ANION GAP 11 MEQ/L (8-16); BLOOD UREA NITROGEN 30 MG/DL (7-18); CALCIUM LEVEL 8.3 MG/DL (8.5-10.1); CARBON DIOXIDE LEVEL 26 MEQ/L (21-32); CHLORIDE LEVEL 107 MEQ/L (98-107); CREATININE FOR GFR 1.15 MG/DL (0.70-1.30); GLOMERULAR FILTRATION RATE > 60.0 (>60); GLUCOSE, FASTING 92 MG/DL (70-105); POTASSIUM SERUM 3.9 MEQ/L (3.5-5.1); SODIUM LEVEL 144 MEQ/L (136-145)
--- NOTE | 2016-10-16 07:45 | ECGEPIP ---
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
[2016-10-16] MEDS: LISINOPRIL *2.5 MG* TAB PO SCH (08:04)
[2016-10-16] MEDS: SPIRONOLACTONE 12.5MG PER 1/2 TABLET PO SCH (08:05)
[2016-10-16] MEDS: ASPIRIN 325 MG TAB PO SCH (08:05)
[2016-10-16] MEDS: METOPROLOL TART 12.5 MG PER 1/2 TAB PO SCH ×2 (08:05→20:42)
[2016-10-16] MEDS: FUROSEMIDE 40 MG TAB PO SCH (08:05)
[2016-10-16] MEDS: NICOTINE 14 MG/24 HR TRANSDERMAL TD SCH (08:07)
[2016-10-16] MEDS ORDERED: POTASSIUM CHLORIDE 10 MEQ SR TABLET PO ONE (09:00)
--- NOTE | 2016-10-16 13:49 | IPNPDOC ---
Text Note Date of Service The patient was seen on 10/16/16. NOTE Subjective: Denies any chest pain/palpitations/SOB. No acute changes overnight. Could not afford down payment for LifeVest. Awaiting case management assistance with financial situation. Objective: Vitals: (see below) General: No acute distress, laying comfortably in bed. HEENT: Moist mucous membranes. Neck: No JVD or lymphadenopathy Cardiac: RRR, No murmurs Pulm: Coarse crackles at the bases bilaterally. B/l. No wheezing, rhonchi Abd: NT/ND + BS Ext: No edema. No cyanosis. Labs (see below) Images: Echocardiogram 10/13/16 FINDINGS: The study is of good technical quality. Left ventricle is severely dilated and severely globally hypokinetic. I estimate overall ejection fraction (EF) in neighborhood of 10-15%. Right ventricle is also dilated and hypokinetic. Both atria appear dilated. Aortic, mitral, tricuspid and pulmonic valves all appear normal. No pericardial effusion is noted. Inferior vena cava is markedly dilated and there is no appreciable collapse with respiration indicative of very high central venous pressure. Aortic root is normal. Aortic arch was not visualized. Abdominal aorta was poorly seen, but grossly appears normal. Doppler interrogation reveals competent aortic valve. There is mild or maybe eygd-mk-nriokzmy mitral insufficiency and probably moderate tricuspid insufficiency. Calculated pulmonary artery pressure is in high 40s, low 50s corresponding to at least moderate pulmonary hypertension. Pulmonic valve is functionally competent. Mitral inflow pattern and tissue Doppler imaging of mitral annulus revealed restrictive filling pattern indicative of very high left ventricle and diastolic pressure. Tissue Doppler velocities of mitral annulus are 3.4 and 7.3 cm/s respectively. CONCLUSIONS: 1. Study is of good technical quality. 2. Severely dilated globally hypokinetic left ventricle with severe left ventricle (LV) systolic dysfunction. Advanced diastolic dysfunction. 3. Wplw-ks-lmcncoou mitral insufficiency and moderate tricuspid insufficiency. 4. Very high central venous pressure and at least moderate pulmonary hypertension. Assessment/Plan 1. Decompensated Severe Systolic Heart Failure- Echocardiogram (see above). Strong family history of underlying cardiac disease. We will continue diuresis. Cardiology consulted. Started on low dose BB, ACEi, Spironolactone. Will need life vest prior to d/c. Will need cardiac cath fairly soon. Patient will need outpatient cardiology follow-up with Dr. Duff. Awaiting Life Vest arrangements. Patient doesn't not have insurance and is unable to afford the $500 down payment for lease. Will discuss with CM regarding Medicaid/[place] care. 2. Nonsustained ventricular tachycardia, asymptomatic. Continue to monitor on telemetry. Replace K, mag. We'll start on low-dose beta mercedes. 2. Tobacco abuse- cessation consulted 3. History of depression follow-up outpatient DVT prophy: Out of bed ambulating Prognosis guarded. Pending Life Vest VS,Fishbone, I+O VS, Fishbone, I+O Laboratory Tests 10/16/16 05:28 Red Blood Count 4.38, Mean Corpuscular Volume 92.8, Mean Corpuscular Hemoglobin 30.5, Mean Corpuscular Hemoglobin Concent 32.8, Red Cell Distribution Width 13.5 , Neutrophils (%) (Auto) 66.2 H, Lymphocytes (%) (Auto) 24.6, Monocytes (%) ( Auto) 6.0 H, Eosinophils (%) (Auto) 1.0, Basophils (%) (Auto) 0.9, Neutrophils # (Auto) 3.3, Lymphocytes # (Auto) 1.3 L, Monocytes # (Auto) 0.3, Eosinophils # (Auto) 0.0, Basophils # (Auto) 0.0, Calcium Level 8.3 L Vital Signs Date Time Temp Pulse Resp B/P (MAP) Pulse Ox O2 Delivery O2 Flow Rate FiO2 10/16/16 08:05 85 127/78 10/16/16 08:00 98.1 18 98 Room Air 10/13/16 20:00 1.0 I&O- Last 24 Hours up to 6 AM 10/16/16 06:00 Intake Total 2130 ml Output Total 650 ml Balance 1480 ml KIM MCDOWELL MD Oct 16, 2016 13:49
[2016-10-17] MEDS: HEPARIN SOD (PORCINE) 5000 UNITS/ML VIAL SC SCH ×3 (02:59→22:00)
[2016-10-17 04:21] VITALS: BP 126/82
[2016-10-17 05:20] LABS: BASO % 0.9 % (0.0-1.0); EOS % 0.6 % (0.0-3.0); LARGE UNSTAINED CELL # 0.1 K/mm3 (0.0-0.4); LARGE UNSTAINED CELL % 1.5 % (0.0-4.0); LYMPH # 1.6 K/mm3 (1.5-4.5); LYMPH % 24.7 % (24.0-44.0); MEAN CORPUSCULAR HEMOGLOBIN 30.3 pg (27.0-33.0); MEAN CORPUSCULAR HGB CONC 32.7 g/dl (32.0-36.5); MEAN CORPUSCULAR VOLUME 92.8 fl (80.0-96.0); MONO # 0.4 K/mm3 (0.0-0.8); MONO % 6.6 % (0.0-5.0); NEUTROPHILS % 65.8 % (36.0-66.0); PLATELET COUNT, AUTOMATED 286 k/mm3 (150-450); RED CELL DISTRIBUTION WIDTH 13.4 % (11.5-14.5)
[2016-10-17 05:34] LABS: CALCIUM LEVEL 8.4 MG/DL (8.5-10.1); CREATININE FOR GFR 1.37 MG/DL (0.70-1.30); GLOMERULAR FILTRATION RATE 59.3 (>60); POTASSIUM SERUM 4.6 MEQ/L (3.5-5.1)
[2016-10-17] MEDS: SLF 3 ML SYR IV SCH ×3 (06:00→22:00)
[2016-10-17 08:00] VITALS: BP 103/63
[2016-10-17] MEDS ORDERED: FUROSEMIDE 20 MG TAB PO SCH (09:00)
[2016-10-17] MEDS ORDERED: FUROSEMIDE 40 MG TAB PO SCH (09:00)
[2016-10-17] MEDS: NICOTINE 14 MG/24 HR TRANSDERMAL TD SCH (09:00)
[2016-10-17] MEDS: ASPIRIN 325 MG TAB PO SCH (09:21)
[2016-10-17] MEDS: METOPROLOL TART 12.5 MG PER 1/2 TAB PO SCH (09:21)
[2016-10-17 12:00] VITALS: BP 117/74
[2016-10-17] MEDS ORDERED: SPIR25TA2 PO (12:56)
[2016-10-17] MEDS ORDERED: FURO20TA2 PO (12:56)
[2016-10-17] MEDS ORDERED: LISI2.5T4 PO (12:56)
[2016-10-17] MEDS ORDERED: METO1TAB87 PO (12:56)
--- NOTE | 2016-10-17 14:58 | DS.PDOC ---
Discharge Summary General Date of Admission Oct 12, 2016 at 20:26 Date of Discharge 10/17/16 Attending Physician: KIM MCDOWELL MD Specialist/Consultants Involve: NORMA VINSON MD Discharge Summary PROCEDURES PERFORMED DURING STAY: None. ADMITTING/DISCHARGE DIAGNOSES: 1. Decompensated systolic heart failure EF 10-15% 2. Nonsustained ventricular tachycardia 3. Tobacco abuse 4. Acute kidney injury 5. History of depression COMPLICATIONS/CHIEF COMPLAINT: Shortness of breath HISTORY OF PRESENT ILLNESS/HOSPITAL COURSE: This is a 45-year-old male with past medical history of tobacco abuse, depression presents with dyspnea. Patient was found to be in decompensated congestive heart failure and was diuresed well. Echocardiogram did not EF of 10-15%. Dr. Vinson was consulted and the patient was started on lisinopril, beta mercedes, Lasix, spironolactone. Since then the patient's dyspnea significantly improved. He also had a LifeVest that was ordered and is to be worn until the patient's cardiac function improves , or pre-to an AICD has been decided on. Patient will follow up closely with Dr. Vinson and will likely need a cardiac catheterization fairly soon to rule out coronary artery disease as a cause. Patient is now hemodynamically stable and will be discharged home. Patient is to follow-up with Dr. Vinson in one week and will need to have a BMP to be done on Monday to ensure that his renal function improves by then. Patient is to return to the ED symptoms worsen. DISCHARGE MEDICATIONS: Please see below. ALLERGIES: Please see below. PHYSICAL EXAMINATION ON DISCHARGE: Vitals: (see below) General: No acute distress, laying comfortably in bed. HEENT: Moist mucous membranes. Neck: No JVD or lymphadenopathy Cardiac: RRR, No murmurs Pulm: Coarse crackles at the bases bilaterally. B/l. No wheezing, rhonchi Abd: NT/ND + BS Ext: No edema. No cyanosis. LABORATORY DATA: Please see below. IMAGING: Echocardiogram 10/13/16 FINDINGS: The study is of good technical quality. Left ventricle is severely dilated and severely globally hypokinetic. I estimate overall ejection fraction (EF) in neighborhood of 10-15%. Right ventricle is also dilated and hypokinetic. Both atria appear dilated. Aortic, mitral, tricuspid and pulmonic valves all appear normal. No pericardial effusion is noted. Inferior vena cava is markedly dilated and there is no appreciable collapse with respiration indicative of very high central venous pressure. Aortic root is normal. Aortic arch was not visualized. Abdominal aorta was poorly seen, but grossly appears normal. Doppler interrogation reveals competent aortic valve. There is mild or maybe geww-zh-iuujrfbz mitral insufficiency and probably moderate tricuspid insufficiency. Calculated pulmonary artery pressure is in high 40s, low 50s corresponding to at least moderate pulmonary hypertension. Pulmonic valve is functionally competent. Mitral inflow pattern and tissue Doppler imaging of mitral annulus revealed restrictive filling pattern indicative of very high left ventricle and diastolic pressure. Tissue Doppler velocities of mitral annulus are 3.4 and 7.3 cm/s respectively. CONCLUSIONS: 1. Study is of good technical quality. 2. Severely dilated globally hypokinetic left ventricle with severe left ventricle (LV) systolic dysfunction. Advanced diastolic dysfunction. 3. Vkvd-br-wjpndkrp mitral insufficiency and moderate tricuspid insufficiency. 4. Very high central venous pressure and at least moderate pulmonary hypertension. PROGNOSIS: Guarded ACTIVITY: As tolerated. DIET: Low-sodium DISCHARGE PLAN/DISPOSITION: DISCHARGE INSTRUCTIONS: 1. Follow-up with PCP and Dr. Vinson in one week. BMP to be done on Monday with results to be sent to Dr. Vinson. Hold spironolactone until then. DISCHARGE CONDITION: Stable. TIME SPENT ON DISCHARGE: Greater than 30 minutes. Vital Signs/I&Os Vital Signs Date Time Temp Pulse Resp B/P (MAP) Pulse Ox O2 Delivery O2 Flow Rate FiO2 10/17/16 12:00 97.7 66 18 117/74 (88) 94 Room Air 10/13/16 20:00 1.0 I&O- Last 24 Hours up to 6 AM 10/17/16 06:00 Intake Total 1680 ml Output Total 500 ml Balance 1180 ml Laboratory Data Labs 24H Laboratory Tests 2 10/17/16 04:43: White Blood Count 6.0, Red Blood Count 4.68, Hemoglobin 14.2, Hematocrit 43.4, Mean Corpuscular Volume 92.8, Mean Corpuscular Hemoglobin 30.3, Mean Corpuscular Hemoglobin Concent 32.7, Red Cell Distribution Width 13.4, Platelet Count 286, Neutrophils (%) (Auto) 65.8, Lymphocytes (%) (Auto) 24.7, Monocytes ( %) (Auto) 6.6H, Eosinophils (%) (Auto) 0.6, Basophils (%) (Auto) 0.9, Neutrophils # (Auto) 4.0, Lymphocytes # (Auto) 1.6, Monocytes # (Auto) 0.4, Eosinophils # (Auto) 0.0, Basophils # (Auto) 0.0, Large Unclassified Cells % 1.5 , Large Unclassified Cells # 0.1, Anion Gap 11, Glomerular Filtration Rate 59.3L , Blood Urea Nitrogen 35H, Creatinine 1.37H, Sodium Level 143, Potassium Level 4.6, Chloride Level 107, Carbon Dioxide Level 25, Calcium Level 8.4L CBC/BMP Laboratory Tests 10/17/16 04:43 Red Blood Count 4.68, Mean Corpuscular Volume 92.8, Mean Corpuscular Hemoglobin 30.3, Mean Corpuscular Hemoglobin Concent 32.7, Red Cell Distribution Width 13.4 , Neutrophils (%) (Auto) 65.8, Lymphocytes (%) (Auto) 24.7, Monocytes (%) (Auto ) 6.6 H, Eosinophils (%) (Auto) 0.6, Basophils (%) (Auto) 0.9, Neutrophils # ( Auto) 4.0, Lymphocytes # (Auto) 1.6, Monocytes # (Auto) 0.4, Eosinophils # (Auto ) 0.0, Basophils # (Auto) 0.0, Calcium Level 8.4 L Discharge Medications Scheduled Aspirin (Aspirin) 325 Mg Tab, 325 MG PO DAILY, (Reported) Furosemide (Furosemide) 20 Mg Tab, 20 MG PO DAILY Lisinopril (Lisinopril) 2.5 Mg Tab, 2.5 MG PO DAILY Metoprolol Tartrate (Metoprolol Tartrate) 25 Mg Tab, 12.5 MG PO BID Multivitamins *[facility] STOCKED* (Thera M Plus *[facility] STOCKED*) 1 Tab Tab, 1 TAB PO DAILY, (Reported) Spironolactone (Spironolactone) 25 Mg Tab, 12.5 MG PO DAILY start on if BMP shows improvement of kidney function. Allergies Coded Allergies: No Known Allergies (Unverified , 05/13/12) KIM MCDOWELL MD Oct 17, 2016 14:58
[2016-10-17 16:00] VITALS: BP 119/82
[2016-10-17] MEDS ORDERED: METOPROLOL TART 25 MG TABLET PO ONE (19:00)
[2016-10-17 19:42] LABS: ANION GAP 11 MEQ/L (8-16); BLOOD UREA NITROGEN 32 MG/DL (7-18); CALCIUM LEVEL 8.5 MG/DL (8.5-10.1); CARBON DIOXIDE LEVEL 24 MEQ/L (21-32); CHLORIDE LEVEL 105 MEQ/L (98-107); CREATININE FOR GFR 1.41 MG/DL (0.70-1.30); GLOMERULAR FILTRATION RATE 57.4 (>60); GLUCOSE, FASTING 163 MG/DL (70-105); MAGNESIUM LEVEL 2.1 MG/DL (1.8-2.4); POTASSIUM SERUM 3.9 MEQ/L (3.5-5.1); SODIUM LEVEL 140 MEQ/L (136-145)
[2016-10-17 20:00] VITALS: BP 109/73
[2016-10-17 23:59] VITALS: BP 109/74
[2016-10-18 04:45] VITALS: BP 109/71
[2016-10-18] MEDS: HEPARIN SOD (PORCINE) 5000 UNITS/ML VIAL SC SCH (05:31)
[2016-10-18] MEDS: SLF 3 ML SYR IV SCH (06:00)
[2016-10-18 07:21] LABS: BASO % 0.5 % (0.0-1.0); EOS % 0.6 % (0.0-3.0); LARGE UNSTAINED CELL # 0.1 K/mm3 (0.0-0.4); LARGE UNSTAINED CELL % 1.7 % (0.0-4.0); LYMPH # 1.3 K/mm3 (1.5-4.5); LYMPH % 20.1 % (24.0-44.0); MEAN CORPUSCULAR HEMOGLOBIN 30.5 pg (27.0-33.0); MEAN CORPUSCULAR HGB CONC 32.8 g/dl (32.0-36.5); MONO # 0.4 K/mm3 (0.0-0.8); MONO % 6.7 % (0.0-5.0); NEUTROPHILS % 70.3 % (36.0-66.0); PLATELET COUNT, AUTOMATED 263 k/mm3 (150-450); RED CELL DISTRIBUTION WIDTH 13.5 % (11.5-14.5); WHITE BLOOD COUNT 5.7 K/mm3 (4.0-10.0)
[2016-10-18 07:28] LABS: ANION GAP 10 MEQ/L (8-16); BLOOD UREA NITROGEN 31 MG/DL (7-18); CALCIUM LEVEL 8.8 MG/DL (8.5-10.1); CARBON DIOXIDE LEVEL 25 MEQ/L (21-32); CHLORIDE LEVEL 105 MEQ/L (98-107); CREATININE FOR GFR 1.24 MG/DL (0.70-1.30); GLOMERULAR FILTRATION RATE > 60.0 (>60); GLUCOSE, FASTING 120 MG/DL (70-105); POTASSIUM SERUM 4.3 MEQ/L (3.5-5.1); SODIUM LEVEL 140 MEQ/L (136-145)
[2016-10-18 08:00] VITALS: BP 108/72
[2016-10-18 09:00] VITALS: BP 109/71
[2016-10-18] MEDS ORDERED: METOPROLOL TART 25 MG TABLET PO SCH (09:00)
[2016-10-18] MEDS: LISINOPRIL *2.5 MG* TAB PO SCH (09:00)
[2016-10-18] MEDS: ASPIRIN 325 MG TAB PO SCH (09:00)
[2016-10-18] MEDS: NICOTINE 14 MG/24 HR TRANSDERMAL TD SCH (09:00)
[2016-10-18] MEDS: SPIRONOLACTONE 12.5MG PER 1/2 TABLET PO SCH (09:00)
[2016-10-18] MEDS ORDERED: METO1TAB87 PO (10:47)
--- NOTE | 2016-10-18 15:59 | ECGEPIP ---
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
--- NOTE | 2016-10-18 17:19 | DSES ---
DATE OF ADMISSION: 10/12/2016 DATE OF DISCHARGE: 10/18/2016 ADDENDUM: The patient is going to be discharged on 10/18/2016 as his defibrillating vest had not yet been delivered. ' On the day of discharge, he has no complaints of pain. No chest pain or shortness of breath. He is somewhat disappointed that he is still in the hospital, especially since he does not have insurance and he does not have a clear pathway to insurance that he can understand. Temperature 98, pulse 82, respiratory rate 18, blood pressure 108/72, 96% on room air. He is awake, appropriately interactive. Breathing is symmetrical and rested. He does have ectopy on the monitor. Beta mercedes was increased yesterday. White cell count is 5.7, hemoglobin 14.4, creatinine is 1.2. Discharge instructions from yesterday are the same with the addition of metoprolol 25 mg by mouth twice a day, up from 12.5 mg by mouth twice a day.
[2016-12-26] MEDS ORDERED: FURO40TA2 PO (20:09)
== END 2016-10-18 13:30 | disposition home or self-care (01) | DRG 194 ==
LOC: M ED 18:05 → M ED INP 20:26 → M PCU 22:55
PROVIDERS: ADMIT Internal Medicine; ATTEND Internal Medicine
DX: I50.21 Acute systolic (congestive) heart failure (principal); F17.200 Nicotine dependence, unspecified, uncomplicated; N17.9 Acute kidney failure, unspecified; F32.9 Major depressive disorder, single episode, unspecified; I47.2 Ventricular tachycardia; Z79.82 Long term (current) use of aspirin; Z79.899 Other long term (current) drug therapy; I42.9 Cardiomyopathy, unspecified

== ENCOUNTER → 2016-10-19 | Outpatient (CLI) | payer SELFPAY ==
[~2016-10-19] MED LIST changes: +ASPI325T PO; +FURO20TA2 PO; +FURO40TA2 PO; +LASI40TA PO; +LISI2.5T3 PO; +LISI2.5T4 PO; +METO1TAB87 PO; +METO25TA4 PO; +SPIR25TA2 PO; +VITMTA PO
[2016-10-19 11:31] LABS: ANION GAP 9 MEQ/L (8-16); BLOOD UREA NITROGEN 29 MG/DL (7-18); CALCIUM LEVEL 8.8 MG/DL (8.5-10.1); CARBON DIOXIDE LEVEL 26 MEQ/L (21-32); CHLORIDE LEVEL 103 MEQ/L (98-107); CREATININE FOR GFR 1.27 MG/DL (0.70-1.30); GLOMERULAR FILTRATION RATE > 60.0 (>60); GLUCOSE, FASTING 97 MG/DL (70-105); POTASSIUM SERUM 4.3 MEQ/L (3.5-5.1); SODIUM LEVEL 138 MEQ/L (136-145)
== END ==
LOC: M LAB 10:16
PROVIDERS: ATTEND Internal Medicine
DX: I11.0 Hypertensive heart disease with heart failure (principal); I50.9 Heart failure, unspecified

== ENCOUNTER → 2016-11-14 | Outpatient (REF) | payer SELFPAY ==
[2016-11-14 12:44] LABS: ANION GAP 9 MEQ/L (8-16); BLOOD UREA NITROGEN 19 MG/DL (7-18); CARBON DIOXIDE LEVEL 28 MEQ/L (21-32); CHLORIDE LEVEL 101 MEQ/L (98-107); CREATININE FOR GFR 0.98 MG/DL (0.70-1.30); GLOMERULAR FILTRATION RATE > 60.0 (>60); GLUCOSE, FASTING 104 MG/DL (70-105); POTASSIUM SERUM 3.5 MEQ/L (3.5-5.1); SODIUM LEVEL 138 MEQ/L (136-145)
== END ==
LOC: M LABDRAW1 11:58
PROVIDERS: ATTEND Nurse Practitioner Family
DX: I42.9 Cardiomyopathy, unspecified (principal)

== ENCOUNTER 2016-12-01 23:06 | Emergency (ER) | payer SELFPAY ==
[~2016-12-01] VITALS: Ht 170.2 cm; Wt 223.0 kg
[~2016-12-01 23:06] MED LIST changes: -FURO40TA2 PO; -LASI40TA PO; -LISI2.5T3 PO; -METO25TA4 PO
[2016-12-01] MEDS ORDERED: LASI40TA PO (23:38)
[2016-12-02] MEDS ORDERED: FUROSEMIDE 100 MG/10 ML VIAL (J1940) IV ONE (01:30)
[2016-12-02 01:51] VITALS: BP 150/81
--- NOTE | 2016-12-02 07:47 | ECGEPIP ---
Stationary ECG Study [facility] - ED Test Date: 2016-12-02 Pat Name: WILLIAM CASTILLO Department: Room: - Gender: M [employer] Operator: : 1970 Requested By: BOONE MASON Order Number: [id number] Reading MD: Cande Dior Measurements Intervals [place] Rate: 98 P: 269 [place]: 140 QRS: -34 QRSD: 107 T: 60 QT: 356 QTc: 455 Interpretive Statements ECTOPIC ATRIAL RHYTHM LOW QRS VOLTAGE IN EXTREMITY LEADS INFERIOR MYOCARDIAL INFARCTION, PROBABLY OLD ANTEROSEPTAL MYOCARDIAL INFARCTION, OF INDETERMINATE AGE Electronically Signed On 12-02-2016 7:47:05 EDT by Cande Dior
[2016-12-26] MEDS ORDERED: FURO40TA2 PO (20:09)
== END 2016-12-02 01:53 | disposition home or self-care (01) ==
LOC: M ED 23:06
DX: R60.0 Localized edema (principal); I10 Essential (primary) hypertension; I51.9 Heart disease, unspecified; F17.200 Nicotine dependence, unspecified, uncomplicated; Z79.82 Long term (current) use of aspirin; Z79.899 Other long term (current) drug therapy
CPT/HCPCS: 93005; 96374; 99283; J1940

== ENCOUNTER 2016-12-07 13:05 | Inpatient (IN) | payer SELFPAY ==
[~2016-12-07] VITALS: Ht 170.2 cm; Wt 101.1 kg
[~2016-12-07 13:05] MED LIST changes: +LASI40TA PO
[2016-12-07] MEDS ORDERED: FUROSEMIDE 40 MG/4 ML VIAL (J1940) IV ONE (13:45)
[2016-12-07 13:48] LABS: BASO % 0.5 % (0.0-1.0); EOS % 0.6 % (0.0-3.0); IMMATURE GRANULOCYTE % 0.2 % (0-0); LYMPH # 0.9 10^3/uL (1.5-4.5); LYMPH % 14.1 % (24.0-44.0); MEAN CORPUSCULAR HEMOGLOBIN 26.5 pg (27.0-33.0); MEAN CORPUSCULAR HGB CONC 32.3 g/dl (32.0-36.5); MONO # 0.5 10^3/uL (0.0-0.8); MONO % 8.5 % (0.0-5.0); NEUTROPHILS # 4.8 10^3/uL (1.8-7.7); NEUTROPHILS % 76.1 % (36.0-66.0); PLATELET COUNT, AUTOMATED 248 10^3/uL (150-450); RED CELL DISTRIBUTION WIDTH 14.6 % (11.5-14.5); WHITE BLOOD COUNT 6.3 10^3/uL (4.0-10.0)
--- NOTE | 2016-12-07 14:02 | REP ---
Portable chest, 01:49 p.m., single AP view, patient sitting: Comparison is 2016. Cardiomegaly and diffuse interstitial coarsening are again identified, compatible with interstitial infiltrates. These infiltrates could be chronic, subacute, acute or acute on chronic. There are no focal infiltrates. No pleural effusions. The raya, mediastinum, and bony thorax are. Impression: Chronic cardiomegaly and chronic interstitial coarsening are again identified, unchanged from the comparison study. Signed by Lucas Lux MD 12/07/2016 01:54 P
[2016-12-07 14:12] LABS: ALBUMIN 3.1 GM/DL (3.2-5.2); ALBUMIN/GLOBULIN RATIO 1.07 (1.00-1.93); ALKALINE PHOSPHATASE 295 U/L (45-117); ALT/SGPT 114 U/L (12-78); ANION GAP 8 MEQ/L (8-16); AST/SGOT 49 U/L (15-37); BILIRUBIN,TOTAL 1.6 MG/DL (0.2-1.0); BLOOD UREA NITROGEN 22 MG/DL (7-18); CALCIUM LEVEL 8.6 MG/DL (8.5-10.1); CARBON DIOXIDE LEVEL 26 MEQ/L (21-32); CHLORIDE LEVEL 102 MEQ/L (98-107); CREATININE FOR GFR 0.95 MG/DL (0.70-1.30); GLOMERULAR FILTRATION RATE > 60.0 (>60); GLUCOSE, FASTING 116 MG/DL (70-105); POTASSIUM SERUM 3.5 MEQ/L (3.5-5.1); SODIUM LEVEL 136 MEQ/L (136-145)
[2016-12-07] MEDS ORDERED: POTASSIUM CHLORIDE 10 MEQ SR TABLET PO ONE (17:30)
[2016-12-07] MEDS ORDERED: LISI2.5T3 PO (17:33)
[2016-12-07] MEDS ORDERED: METO25TA4 PO (17:33)
[2016-12-07] MEDS ORDERED: ISOVUE-370 76% 100ML VIAL (Q9967) As Ordered ONE (17:54)
--- NOTE | 2016-12-07 17:55 | HPEPDOC ---
[facility] Medical History & Physical Date of Admission Dec 07, 2016 History and Physical PRIMARY CARE PROVIDER: Dr. Garcia's office ATTENDING: Dr. Diane Rae CHIEF COMPLAINT: Worsening lower extremity edema HISTORY OF PRESENT ILLNESS: This is a 46-year-old male past medical history of a systolic heart failure EF of 10-15%, nonsustained ventricular tachycardia, tobacco abuse, depression who presents with increased lower extremity edema. Patient was recently hospitalized for acute decompensated systolic heart failure which was newly diagnosed. Patient was followed by cardiology and also had LifeVest ordered. Patient was discharged home and has noticed that's he has accumulated more fluid in his lower extremities and abdomen, and states his Lasix dose was increased outpatient. Patient states that he has been drug and significant amount of water when he notices that he has decreased urine output. He denies any chest pain/shortness of breath/palpitations. No nausea/vomiting/abdominal pain. Patient presented to his primary care physician's office today and referred to the ED. Dr. Duff was called by the ED and will be evaluating the patient. PAST MEDICAL HISTORY: As per HPI PAST SURGICAL HISTORY: Cervical lymph node FNA SOCIAL HISTORY: Positive tobacco abuse, occasional alcohol, no illicit drug use. Lives with . FAMILY HISTORY: Noncontributory knee father age of 20s from heart disease, mother with COPD, brother/sister with diabetes ALLERGIES: Please see below. REVIEW OF SYSTEMS: HEENT: Denies sore throat/headache CARDIOVASCULAR: Denies chest pain/palpitations RESPIRATORY: Denies shortness of breath/cough GASTROINTESTINAL: denies nausea/vomiting GENITOURINARY: Denies dysuria/urinary urgency. MUSCULOSKELETAL: Denies myalgias/arthralgias NEUROLOGICAL: Denies any focal weakness HOME MEDICATIONS: Please see below. PHYSICAL EXAMINATION: Vitals: (see below) General: No acute distress, laying comfortably in bed. HEENT: Moist mucous membranes. Neck: No JVD or lymphadenopathy Cardiac: RRR, No murmurs Pulm: Coarse crackles at the bases b/l. No wheezing, rhonchi Abd: NT/ND + BS. Edema within abd wall. Ext: 2+ Pitting edema BLE. Distal pulses intact. LABORATORY DATA: See below. IMAGING: MICROBIOLOGY: Please see below. ASSESSMENT/PLAN: 1. Acute decompensated systolic heart failure- secondary to noncompliance with fluid restriction and low sodium diet. Patient will be placed on Lasix IV. Echocardiogram in September with EF of 10-15%. We'll trend cardiac enzymes. EKG with no acute ST changes. 1600 mL fluid restriction. Cardio consulted. 2. History of nonsustained jugular tachycardia we'll observe on telemetry 3. History of tobacco abuse- cessation counseling. 4. Transaminitis- likely secondary to hepatic congestion, however given the significant amount of edema within the abdominal wall, we will obtain a CT of the abdomen and pelvis. Trend LFTs. 5. History of depression- outpatient follow-up DVT prophylaxis enoxaparin. Patient followed by Dr. Diane Rae starting 12/08/16 7 AM. Vital Signs Vital Signs Date Time Temp Pulse Resp B/P (MAP) Pulse Ox O2 Delivery O2 Flow Rate FiO2 12/07/16 16:35 88 97 12/07/16 16:29 132/98 (109) 12/07/16 13:41 Room Air 12/07/16 13:07 97.5 18 Laboratory Data Labs 24H Laboratory Tests 2 12/07/16 13:30: Immature Granulocyte % (Auto) 0.2H, White Blood Count 6.3, Red Blood Count 5.29 , Hemoglobin 14.0, Hematocrit 43.4, Mean Corpuscular Volume 82.0, Mean Corpuscular Hemoglobin 26.5L, Mean Corpuscular Hemoglobin Concent 32.3, Red Cell Distribution Width 14.6H, Platelet Count 248, Neutrophils (%) (Auto) 76.1H , Lymphocytes (%) (Auto) 14.1L, Monocytes (%) (Auto) 8.5H, Eosinophils (%) (Auto ) 0.6, Basophils (%) (Auto) 0.5, Neutrophils # (Auto) 4.8, Lymphocytes # (Auto) 0.9L, Monocytes # (Auto) 0.5, Eosinophils # (Auto) 0.0, Basophils # (Auto) 0.0, Immature Granulocyte # (Auto) 0.0, Nucleated Red Blood Cells % (auto) 0.0, Anion Gap 8, Glomerular Filtration Rate > 60.0, Calcium Level 8.6, Aspartate Amino Transf (AST/SGOT) 49H, Alanine Aminotransferase (ALT/SGPT) 114H, Alkaline Phosphatase 295H, Total Bilirubin 1.6H, Direct Bilirubin 1.0H, Total Creatine Kinase 110, Creatine Kinase MB 2.3, Creatine Kinase MB Relative Index 2.09, Troponin I < 0.02, Total Protein 6.0L, Albumin 3.1L, Albumin/Globulin Ratio 1.07 , Thyroid Stimulating Hormone (TSH) 4.060H CBC/BMP Laboratory Tests 12/07/16 13:30 Red Blood Count 5.29, Mean Corpuscular Volume 82.0, Mean Corpuscular Hemoglobin 26.5 L, Mean Corpuscular Hemoglobin Concent 32.3, Red Cell Distribution Width 14.6 H, Neutrophils (%) (Auto) 76.1 H, Lymphocytes (%) (Auto) 14.1 L, Monocytes (%) (Auto) 8.5 H, Eosinophils (%) (Auto) 0.6, Basophils (%) (Auto) 0.5, Neutrophils # (Auto) 4.8, Lymphocytes # (Auto) 0.9 L, Monocytes # (Auto) 0.5, Eosinophils # (Auto) 0.0, Basophils # (Auto) 0.0 Home Medications Scheduled Aspirin (Aspirin) 325 Mg Tab, 325 MG PO DAILY Furosemide (Lasix) 40 Mg Tab, 40 MG PO DAILY Lisinopril (Lisinopril) 2.5 Mg Tab, 2.5 MG PO DAILY Metoprolol Tartrate (Metoprolol Tartrate) 25 Mg Tab, 25 MG PO BID Allergies Coded Allergies: Spironolactone (Unverified Allergy, Unknown, SWELLING OF LOWER EXTREMITIES , RED COLORED URINE, 12/07/16) KIM MCDOWELL MD Dec 07, 2016 17:55
--- NOTE | 2016-12-07 18:15 | REP ---
LIMITED ABDOMINAL ULTRASOUND: HISTORY: Elevated liver function tests. There are no filling defects in the gallbladder. The gallbladder wall is mildly thickened measuring 4.1 mm. The common bile duct measures 4.6 mm. The liver is normal in echogenicity. The pancreas is not seen due to overlying bowel gas. The right kidney measures 6 cm in transverse x 4.9 cm in AP x 12.4 cm in cephalocaudal dimensions. There is no hydronephrosis or mass. A trace amount of free fluid is present. IMPRESSION: 1. The gallbladder wall is mildly thickened measuring 4.1 mm. There is no cholelithiasis. 2. There is a trace amount of free fluid in the right upper quadrant. Signed by Surinder Hale MD 12/07/2016 06:22 P
--- NOTE | 2016-12-07 19:10 | REPUSA ---
HISTORY: DIFFUSE ABD EDEMA. TECHNIQUE: Axial CT imaging of the abdomen and pelvis with intravenous contrast enhancement, with sag ittal and coronal reformatted imaging. DLP= 833.4 mGy-cm. FINDINGS: Lung bases are clear. Heart is enlarged. Bony structures demonstrate degenerative changes with no acute fracture or destructive lesions seen. The liver is enlarged but no focal liver mass is seen. Spleen is normal. Biliary tree and gallbladd er are normal. There is ascites around the liver and spleen tracking along the paracolic gutters shiva aterally to the dependent pelvis. Clinical correlation is suggested to evaluate for acute hepatitis. The pancreas, adrenal glands, kidneys, abdominal aorta, IVC, and retroperitoneal structures are morris l. No pelvic mass lesions are seen. Colon is normal. There is some minimal amount of fluid distent ion and air-fluid levels in the small bowel suggesting mild nonspecific small bowel ileus. No walled off abscess is seen. No abdominal wall hernia is seen. IMPRESSION: 1. Hepatomegaly with ascites in the abdomen extending into the pelvis, raising question of acute hepatitis. Clinical correlation and follow-up is suggested. 2. Mild small bowel ileus. Colon and appendix are normal. 3. The remainder of the CT examination of the abdomen and pelvis is normal. Clinical correlation and followup imaging may be warranted as clinically indicated.
[2016-12-07] MEDS: FUROSEMIDE 40 MG/4 ML VIAL (J1940) IV SCH ×2 (20:00→23:28)
[2016-12-07 23:15] VITALS: BP 123/82
[2016-12-07] MEDS: METOPROLOL TART 25 MG TABLET PO SCH (23:27)
[2016-12-07] MEDS ORDERED: SLF 3 ML SYR IV PRN (23:45)
[2016-12-08 04:00] VITALS: BP 103/68
[2016-12-08] MEDS: FUROSEMIDE 40 MG/4 ML VIAL (J1940) IV SCH ×5 (04:10→20:18)
[2016-12-08 04:11] LABS: MEAN CORPUSCULAR HEMOGLOBIN 26.5 pg (27.0-33.0); MEAN CORPUSCULAR HGB CONC 32.1 g/dl (32.0-36.5); MEAN CORPUSCULAR VOLUME 82.6 fl (80.0-96.0); RED CELL DISTRIBUTION WIDTH 14.7 % (11.5-14.5); WHITE BLOOD COUNT 5.1 10^3/uL (4.0-10.0)
[2016-12-08 04:37] LABS: ALBUMIN/GLOBULIN RATIO 1.03 (1.00-1.93); ALKALINE PHOSPHATASE 284 U/L (45-117); ALT/SGPT 97 U/L (12-78); ANION GAP 9 MEQ/L (8-16); AST/SGOT 39 U/L (15-37); BLOOD UREA NITROGEN 19 MG/DL (7-18); CALCIUM LEVEL 8.6 MG/DL (8.5-10.1); CARBON DIOXIDE LEVEL 28 MEQ/L (21-32); CHLORIDE LEVEL 103 MEQ/L (98-107); CREATININE FOR GFR 0.93 MG/DL (0.70-1.30); GLOMERULAR FILTRATION RATE > 60.0 (>60); GLUCOSE, FASTING 89 MG/DL (70-105); MAGNESIUM LEVEL 1.7 MG/DL (1.8-2.4); POTASSIUM SERUM 3.3 MEQ/L (3.5-5.1); SODIUM LEVEL 140 MEQ/L (136-145); TOTAL PROTEIN 5.9 GM/DL (6.4-8.2)
[2016-12-08] MEDS: SLF 3 ML SYR IV SCH ×3 (05:42→20:18)
[2016-12-08] MEDS ORDERED: POTASSIUM CHLORIDE 10 MEQ SR TABLET PO ONE (06:45)
[2016-12-08] MEDS: MAG SULF 1GM/100ML (MAG RUN) 1 GM in APPROPRIATE DILUENT 1 EA IV SCH ×2 (06:58→09:19)
--- NOTE | 2016-12-08 07:06 | ECGEPIP ---
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
[2016-12-08 07:43] VITALS: BP 119/81
--- NOTE | 2016-12-08 08:22 | IPN ---
DATE: 12/08/2016 Mr. Boland tells me he is feeling much better than he did yesterday. He wants to go home. His principal concern is the lack of insurance and mounting bill. Telemetry monitoring overnight reveals mostly sinus rhythm, but he did have an 11 beat run of nonsustained ventricular tachycardia. Vital signs this morning, blood pressure 120/81, heart rate 70-80s. Afebrile. Saturation 95% on room air. His fluid balance yesterday was about 2.2 liters negative. Weight is documented at 102 kg. He is alert and oriented. His jugular venous pulse (JVP) is approximately 3-4 cm above clavicle. Lungs are clear to auscultation with good air movement. Heart exam reveals regular rhythm. I do not appreciate S3 or S4. Distant murmur. Abdomen is distended but soft. No shifting dullness. There is 3+ edema to above knees bilaterally. Laboratory etienne, his CBC normal and basic metabolic panel reveals potassium 3.3, BUN 19, creatinine 0.9, glucose 89. He still has elevated liver function test. Cardiac enzymes are negative. ASSESSMENT AND PLAN: Mr. Boland is a 46-year-old man who probably has nonischemic cardiomyopathy with severe left ventricular systolic (LV) dysfunction. He presented with exacerbated congestive heart failure, mostly right-sided. He still is grossly volume overloaded and will need additional diuresis. I am going to increase the dose of lisinopril, hopefully his blood pressure will tolerate it. Will advance the dose of beta-mercedes later on as well when his compensation improves at least some. Most of the visit was focused on convincing patient to stay in the hospital. I tried to explain that this is certainly a life-threatening condition with fairly high risk of sudden cardiac . Also, the fact that he was not able to stay compensated at home indicates poor prognosis. As he does not work and has ongoing cardiomyopathy, it is likely that he will become disabled and I believe he should qualify for Medicaid. I will ask psychotherapist social worker to get some assistance. Otherwise, I would continue current management. Potassium was already replaced. I increased the dose of angiotensin-converting enzyme (PAVAN) inhibitor and he will continue diuresis. Dr. Duff will be back tomorrow. ACE
[2016-12-08] MEDS: ENOXAPARIN 40 MG/0.4 ML SYRINGE (J1650) SC SCH (09:00)
[2016-12-08] MEDS ORDERED: LISINOPRIL *2.5 MG* TAB PO SCH (09:00)
[2016-12-08] MEDS: ASPIRIN 325 MG TAB PO SCH (09:22)
[2016-12-08] MEDS: LISINOPRIL 5 MG TAB PO SCH ×2 (09:23→20:15)
[2016-12-08] MEDS: METOPROLOL TART 25 MG TABLET PO SCH ×2 (09:23→20:15)
--- NOTE | 2016-12-08 11:42 | IPN ---
DATE OF SERVICE: 12/08/2016 SUBJECTIVE: The patient tells me that he is feeling better. He tells me that he is not having as much shortness of breath with exertion that he was having prior to his admission. He denies fevers, chills, chest pressure, nausea, vomiting or diarrhea. OBJECTIVE: Vital signs: Temperature 97, pulse 79, respiratory rate 18, blood pressure 119/81, 02 sat 95% on room air. General: He is a middle-age, disheveled man sitting up on the edge of his bed. He does not appear to be in any acute distress. HEENT: Cranial nerves II-XII are grossly intact. He has some bitemporal wasting. He has moist mucous membranes. There is some elevation of central venous pressure. Cardiovascular exam: S1, S2 regular. Respiratory exam: He has very scattered rare bibasilar rales. Abdominal exam: Obese. Bowel sounds present. The abdomen is soft. Extremities: There is 2-3+ edema bilaterally. LABORATORY STUDIES: WBC 5.1, hemoglobin 14.2, platelet count 226. Chemistry panel: Sodium 140, potassium 3.3 repleted, chloride 103, bicarbonate 28, BUN 19, creatinine 0.9. Magnesium 1.7 repleted. AST is 39 down from 49, ALT 97 down from 114, alkaline phosphatase 284 down from 295. No microbiology. IMAGING: The patient had a CT scan of the abdomen and pelvis that revealed hepatomegaly with ascites in the abdomen extending into the pelvis. Mild small bowel ileus. He also had ultrasound of the abdomen which revealed gallbladder wall mildly thickened. No cholelithiasis. Trace amount of free fluid in the right upper quadrant. He did have a chest x-ray that revealed chronic cardiomegaly and chronic interstitial coarsening unchanged from prior studies. ASSESSMENT AND PLAN: This is a 46-year-old man with acute decompensated severe systolic congestive heart failure. PROBLEMS: 1. Acute decompensated severe systolic congestive heart failure. At this time, he is improving on Lasix 40 mg IV every 4 hours. I have put a hold parameter to hold for greater than 30 liters net negative. He is maintained on his home dose of beta mercedes, metoprolol 25 mg by mouth twice daily. His lisinopril has been titrated up by Dr. Julian this morning. We did speak in length about the patient. He is also continued on an aspirin. I did attempt to reinforce with the patient the necessity for him to remain in the hospital in order to be adequately diuresed and be closer to euvolemia to resolve his symptoms prior to discharge. I did speak with [facility] ([facility] today in order to see if there was anything further we could do to arrange for him to become Medicaid available. They are aware of his case and they did see him during his previous hospitalization as well. Patient remains on fluid restriction. It is felt as though he may have had decompensation secondary to noncompliance with 2 gram sodium, fluid restricted diet. The patient had a history of nonsustained ventricular tachycardia and has been wearing a life vest for the last 2 months since his last discharge, however, at the present time he has been not wearing it. Should he have any episodes of sustained or unstable ventricular tachycardia, we recommend immediate electrocardioversion. 2. Transaminitis likely related to congestive hepatopathy improving with diuresis. Continue to monitor. 3. History of tobacco use. Cessation counseling offered. 4. Deep venous thrombosis (DVT) prophylaxis. He is on Lovenox. DISPOSITION: Pending improvement in his clinical status. He has been advised that should he leave the hospital against medical advise, it would certainly be risking his life, including .
[2016-12-08 12:00] VITALS: BP 122/84
[2016-12-08 15:35] VITALS: BP 106/62
[2016-12-08 20:00] VITALS: BP 93/61
[2016-12-08 23:53] VITALS: BP 110/70
[2016-12-09] MEDS: FUROSEMIDE 40 MG/4 ML VIAL (J1940) IV SCH ×3 (00:02→08:21)
[2016-12-09 03:47] VITALS: BP 109/74
[2016-12-09] MEDS: SLF 3 ML SYR IV SCH (04:47)
[2016-12-09 05:50] LABS: MEAN CORPUSCULAR HEMOGLOBIN 26.4 pg (27.0-33.0); MEAN CORPUSCULAR VOLUME 82.2 fl (80.0-96.0); PLATELET COUNT, AUTOMATED 246 10^3/uL (150-450); RED CELL DISTRIBUTION WIDTH 14.8 % (11.5-14.5); WHITE BLOOD COUNT 6.1 10^3/uL (4.0-10.0)
[2016-12-09 06:06] LABS: ALBUMIN 3.2 GM/DL (3.2-5.2); ALKALINE PHOSPHATASE 281 U/L (45-117); ALT/SGPT 91 U/L (12-78); ANION GAP 10 MEQ/L (8-16); AST/SGOT 31 U/L (15-37); BILIRUBIN,TOTAL 1.6 MG/DL (0.2-1.0); BLOOD UREA NITROGEN 21 MG/DL (7-18); CALCIUM LEVEL 8.6 MG/DL (8.5-10.1); CARBON DIOXIDE LEVEL 25 MEQ/L (21-32); CHLORIDE LEVEL 103 MEQ/L (98-107); CREATININE FOR GFR 1.13 MG/DL (0.70-1.30); GLOMERULAR FILTRATION RATE > 60.0 (>60); GLUCOSE, FASTING 109 MG/DL (70-105); POTASSIUM SERUM 3.6 MEQ/L (3.5-5.1); SODIUM LEVEL 138 MEQ/L (136-145); TOTAL PROTEIN 6.4 GM/DL (6.4-8.2)
[2016-12-09 08:00] VITALS: BP 108/74
[2016-12-09] MEDS: LISINOPRIL 5 MG TAB PO SCH (08:21)
[2016-12-09] MEDS: ENOXAPARIN 40 MG/0.4 ML SYRINGE (J1650) SC SCH (08:21)
[2016-12-09] MEDS: ASPIRIN 325 MG TAB PO SCH (08:21)
[2016-12-09 08:22] VITALS: BP 109/74
[2016-12-09] MEDS: METOPROLOL TART 25 MG TABLET PO SCH (08:22)
[2016-12-09] MEDS ORDERED: LASI40TA PO (08:32)
[2016-12-09] MEDS ORDERED: POTASSIUM CHLORIDE 10 MEQ SR TABLET PO ONE (09:00)
--- NOTE | 2016-12-09 21:57 | DSES ---
DATE OF ADMISSION: 12/07/2016 DATE OF DISCHARGE: 12/09/2016 DISCHARGE DIAGNOSES: 1. Decompensated severe systolic congestive heart failure. 2. Transaminitis. 3. Tobacco abuse. 4. Medical noncompliance. HOSPITAL COURSE: The patient is a 46-year-old man who has relatively newly discovered severe systolic congestive heart failure who was discharged 2 months ago with a LifeVest. He had been having symptoms of weight gain, dyspnea on exertion, and presented to his primary care physician's (PCP's) office who had found his weight had increased significantly and called Dr. Duff, who had referred the patient to the emergency room. Patient presented with acute severe systolic congestive heart failure decompensation. He was aggressively diuresed. His medications optimized. He was seen by Dr. Julian of cardiology during his stay. Patient's clinical status did improve. At the present time his symptoms are resolving; however, he was noted to have abnormal liver function tests believed to be related hepatopathy related to heart failure. He did improve with diuresis. At the present time the patient is still volume overloaded but would like to go home and continue his diuresis on the outpatient setting. I have spoken with Dr. Duff of cardiology, who agrees that this is an appropriate plan. SUBJECTIVE: Today the patient tells me that he feels great and wants to go home. OBJECTIVE: VITAL SIGNS: Temperature 97.9, pulse 64, respiratory rate 18, blood pressure (BP) 109/74, oxygen saturation 94% on room air. GENERAL: He is a disheveled, middle-aged man sitting on the edge of the bed. He does not appear to be in any acute distress. HEENT: Cranial nerves II-XII are grossly intact. He has moist mucous membranes. He does have mild elevation in his central venous pressure. CARDIOVASCULAR: S1, S2, regular. RESPIRATORY: Actually quite clear. ABDOMEN: Obese. Bowel sounds present. The abdomen is soft. EXTREMITIES: There is 2+ edema bilaterally. LABORATORY STUDIES: WBC 6.1, hemoglobin 14.1, platelet count 246. Chemistry panel: Sodium 138, potassium 3.6, chloride 103, bicarbonate 25, BUN 21, creatinine 1.1. Hepatitis panel is pending. IMAGING: The patient had a CT scan of the abdomen and pelvis completed, which revealed hepatomegaly with ascites. He also had an abdominal ultrasound that revealed a trace amount of fluid in the right upper quadrant. ASSESSMENT AND PLAN: This is a 46-year-old man with acutely decompensated severe systolic congestive heart failure. 1. Acute decompensated severe systolic congestive heart failure. At this time, the patient is improved with diuresis. He was only taking Lasix 40 mg by mouth daily at home. I advised him to increase to 40 twice a day and discussed this plan with Dr. Duff. I have advised the patient to have a strict 2 gram sodium 1800 mL fluid restricted diet, and strict compliance is necessary. He has not been compliant with this and this is likely why he had decompensation. While examining him in the room, he does have a dozen donuts sitting next to his bed, which he has been slowly working his way through since last night, brought to him by his . Stressed the importance of compliance and education for both him and his . This was stressed to him by myself over the last 2 days and as well as Dr. Julian. Dr. Duff did see the patient today and is agreeable with the aforementioned plan. There was an attempt to titrate up his lisinopril; however, his blood pressure did not appear to tolerate this, and as such he will be discharged back home on his 2.5 mg. He will be continued on his beta mercedes 25 mg by mouth twice a day. The patient will continue wearing his Life Vest and followup with Dr. Duff within the next week and his primary care provider within the next week. 2. Transaminitis related to congestive hepatopathy, improved with diuresis. He does have significant elevated right heart failure, and I recommend that he undergo outpatient polysomnography to evaluate for possible undiagnosed sleep apnea contributing to his right heart failure. 3. History of tobacco abuse. Cessation counseling offered. 4. Deep vein thrombosis (DVT) prophylaxis. He has been on Lovenox. DISPOSITION: The patient is being discharged home. He is independent with his activities of daily living (ADLs). He is at his functional baseline. His clinical symptoms are improved. He is to followup with his PCP within 7 days and followup with cardiology as scheduled. His activity is as prior to admission. His diet is a 2 gram sodium, 1800 mL fluid-restricted diet. He is to return to the emergency room (ER) of his symptoms worsen and to continue wearing his LifeVest. MEDICATIONS AT THE TIME OF DISCHARGE: - Lasix 40 mg by mouth twice a day - aspirin 325 mg daily - lisinopril 2.5 mg daily - metoprolol tartrate 25 mg twice a day Greater than 30 minutes spent organizing disposition.
[2016-12-26] MEDS ORDERED: FURO40TA2 PO (20:09)
== END 2016-12-09 11:10 | disposition home or self-care (01) | DRG 194 ==
LOC: M ED 13:05 → M ED INP 17:24 → M PCU 23:10
PROVIDERS: ADMIT Internal Medicine; ATTEND Internal Medicine
DX: I50.21 Acute systolic (congestive) heart failure (principal); F17.200 Nicotine dependence, unspecified, uncomplicated; Z91.19 Patient's noncompliance with other medical treatment and regimen; F32.9 Major depressive disorder, single episode, unspecified; Z79.82 Long term (current) use of aspirin; Z79.899 Other long term (current) drug therapy; Z88.8 Allergy status to other drugs, medicaments and biological substances

== ENCOUNTER 2017-01-04 05:52 | Inpatient (IN) | payer SELFPAY ==
[~2017-01-04] VITALS: Ht 170.2 cm; Wt 101.2 kg
[~2017-01-04 05:52] MED LIST changes: +FURO40TA2 PO; +LISI2.5T3 PO; +METO25TA4 PO
[2017-01-04 06:34] LABS: BASO % 0.2 % (0.0-1.0); IMMATURE GRANULOCYTE % 0.5 % (0-0); LYMPH # 0.4 10^3/uL (1.5-4.5); LYMPH % 3.3 % (24.0-44.0); MEAN CORPUSCULAR HEMOGLOBIN 25.5 pg (27.0-33.0); MEAN CORPUSCULAR HGB CONC 32.2 g/dl (32.0-36.5); MEAN CORPUSCULAR VOLUME 79.2 fl (80.0-96.0); MONO # 0.7 10^3/uL (0.0-0.8); MONO % 5.4 % (0.0-5.0); NEUTROPHILS % 90.6 % (36.0-66.0); PLATELET COUNT, AUTOMATED 278 10^3/uL (150-450); RED CELL DISTRIBUTION WIDTH 16.6 % (11.5-14.5); WHITE BLOOD COUNT 13.2 10^3/uL (4.0-10.0)
[2017-01-04 06:36] LABS: VENOUS BASE EXCESS 1.7 (-2.0-2.0); VENOUS PARTIAL PRESSURE CO2 44.8 mmHg (38.0-50.0); VENOUS PARTIAL PRESSURE O2 53.1 mmHg (30.0-50.0); VENOUS STANDARD HCO3 25.7 MEQ/L; VENOUS TOTAL CO2 28.4 MEQ/L (24.0-28.0)
[2017-01-04] MEDS ORDERED: FUROSEMIDE 100 MG/10 ML VIAL (J1940) IV ONE (06:45)
[2017-01-04] MEDS ORDERED: IPRATROPIUM 0.5MG/ALBUTEROL 2.5MG INH SOL UD 3ML (DUONEB)(J7620) NEB ONE (06:45)
[2017-01-04] MEDS ORDERED: LISI2.5T3 PO (06:50)
[2017-01-04] MEDS ORDERED: METO25TA4 PO (06:50)
[2017-01-04] MEDS ORDERED: ASPI325T28 PO (06:50)
[2017-01-04] MEDS ORDERED: FURO40TA2 PO (06:50)
[2017-01-04 06:58] LABS: ANION GAP 10 MEQ/L (8-16); BLOOD UREA NITROGEN 21 MG/DL (7-18); CALCIUM LEVEL 8.6 MG/DL (8.5-10.1); CARBON DIOXIDE LEVEL 26 MEQ/L (21-32); CHLORIDE LEVEL 103 MEQ/L (98-107); CREATININE FOR GFR 0.86 MG/DL (0.70-1.30); GLOMERULAR FILTRATION RATE > 60.0 (>60); GLUCOSE, FASTING 106 MG/DL (70-105); POTASSIUM SERUM 3.9 MEQ/L (3.5-5.1); SODIUM LEVEL 139 MEQ/L (136-145)
--- NOTE | 2017-01-04 07:53 | REP ---
Clinical: Cough. Dyspnea. Comparison: 12/26/2016. Findings: Stable cardiomegaly. Mild pulmonary vascular congestion/interstitial edema cannot be excluded. No focal consolidation. Obvious effusion, or pneumothorax. Skeletal structures are intact. Impression: Cardiomegaly. Mild pulmonary vascular congestion cannot be excluded. No focal consolidation. Signed by Tye Stratton MD 01/04/2017 07:45 A
[2017-01-04] MEDS ORDERED: BISACODYL 5 MG TAB PO PRN (08:15)
[2017-01-04 10:00] VITALS: BP 120/79
[2017-01-04] MEDS: ASPIRIN ENTERIC 325 MG TAB PO SCH (11:34)
[2017-01-04] MEDS: METOPROLOL TART 25 MG TABLET PO SCH ×2 (11:34→20:52)
[2017-01-04] MEDS: ENOXAPARIN 40 MG/0.4 ML SYRINGE (J1650) SC SCH (11:35)
[2017-01-04] MEDS: LISINOPRIL *2.5 MG* TAB PO SCH (11:35)
[2017-01-04] MEDS: SENOKOT S TAB PO SCH ×2 (11:35→20:51)
[2017-01-04 12:00] VITALS: BP 127/56
--- NOTE | 2017-01-04 12:24 | HPE ---
DATE OF ADMISSION: 01/04/2017 PRIMARY CARE PROVIDER: CHIVO Anton SIX PACK PACKER: Dr. Duff CHIEF COMPLAINT: Increasing shortness of breath for 1 week, increasing leg swelling and discharge of fluids from the legs for the same duration. 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 Patient is on a trial of LifeVest since September 2016, prior to deciding whether he would benefit from automatic implantable cardioverter defibrillator (AICD) or not. Nonsustained ventricular tachycardia (V-tach). Tobacco abuse. Depression. Alcohol abuse. HISTORY OF PRESENT ILLNESS: This is a 46-year-old male with dilated cardiomyopathy from alcohol abuse with EF of 10-15%, currently having a LifeVest in place, presented to the hospital, brought in by for increasing shortness of breath. As per patient, this has been slowly increasing for the past 7 days and became very worse last night. So came in to the hospital early this morning. Patient also increased swelling of the legs with increased seepage. Patient's works throughout the day so could not say whether he is compliant with his fluid intake or not. However, she thinks the patient has been compliant with his medications. Patient was recently in the hospital on 12/26/2016 and signed out against medical advice (AMA) on 12/28/2016 , and after discharge, patient was suppose to followup with Dr. Duff. However, as per the patient, they could not get in touch with Dr. Duff's office to set up an appointment. Patient denied any difficulty in sleeping. However, patient's significant other says that she often notices the patient kneeling down on the floor with his head down on the couch, which she says helps him breathe better. On presentation to the emergency room, he was noted to be tachypneic at 22 to 26 , though his oxygen saturations were above over 90, so he was placed on oxygen by nasal cannula. Blood work showed elevated lactate of 2.3, elevated white count of 13.2 and proBNP of 13,440, which is higher than before, and the patient was subsequently admitted to the hospital service for congestive heart failure (CHF) exacerbation. On my interview at bedside, patient was extremely sleepy, though could be easily woken up, however, would fall asleep again during the interview. I also noted the patient to have abnormal breathing pattern and he would stop breathing intermittently, though his oxygen saturation did not drop below 88-89% during episodes when he stopped breathing. However, he may very well have underlying sleep apnea. Patient denied any chest pain. Does complain of cough and increasing shortness of breath. Denied any fever or chills. Denied any abdominal pain, nausea, vomiting or diarrhea. He says that his appetite is okay. PAST SURGICAL HISTORY: Cervical lymph node needle biopsy on the left. SOCIAL HISTORY: Patient is a smoker. Smokes about one pack per day. History of alcohol abuse. Last drink was on 10/18/2016. FAMILY HISTORY: Father in his 20s from heart disease. Mother with chronic obstructive pulmonary disease (COPD). Brother and sister with diabetes. ALLERGIES: To SPIRONOLACTONE. REVIEW OF SYSTEMS: All 10 point review of system are negative except as mentioned in history of present illness (HPI). PHYSICAL EXAMINATION: VITAL SIGNS: Temperature 97.3, pulse 88, respiratory rate 16, blood pressure 122/72, pulse oximetry 99% in room air. GENERAL: Patient somnolent but easily arousable. Oriented times three. CHEST: Bilateral poor air entry at the bases and some diffuse crackles. CARDIOVASCULAR: S1, S2, regular. No rub, murmur or gallop. ABDOMEN: Obese, soft, nontender. Bowel sounds normal. EXTREMITIES: 4+ bipedal edema with chronic venous stasis changes and weeping of fluid. LABORATORY DATA: WBC 13.2, hemoglobin 13.6, platelets 278. Sodium 139, potassium 3.9, chloride 103, bicarbonate 26, BUN 21, creatinine 0.8, glucose 106 , lactate 2.3, calcium of 8.6. Cardiac enzymes are negative, proBNP 13,440. Venous blood gas with oxygen shows pH of 7.39, pCO2 of 44, pO2 53. Chest x-ray shows cardiomegaly, mild pulmonary vascular congestion. No focal consolidation. ASSESSMENT AND PLAN: This is a 46-year-old male admitted for acute on chronic congestive heart failure. PLAN: 1. Acute on chronic congestive heart failure: Patient has both systolic and diastolic heart failure with EF of 10-15%. We will get the patient on 2 gram sodium diet, fluid restriction 1.5 liters and Lasix 40 mg IV every 8. Patient did receive 60 mg in the emergency room with negative of 900. We will also consult with Dr. Duff to help in his management. 2. History of ventricular tachycardia: Patient has a LifeVest in place. We will place the patient on telemetry. Patient is given a trial of LifeVest and cardiac medications to see if there is any improvement in ejection fraction up to 3 months and to see if the patient will qualify for AICD or not. 3. Dilated cardiomyopathy: This is due alcohol abuse. EF of 10-15%. 4. We will continue the patient on aspirin, beta-mercedes and lisinopril. 5. Deep venous thrombosis (DVT) prophylaxis has been ordered. MTDD
--- NOTE | 2017-01-04 14:17 | ECGEPIP ---
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
[2017-01-04] MEDS: FUROSEMIDE 100 MG/10 ML VIAL (J1940) IV SCH ×2 (15:32→23:00)
[2017-01-04 16:00] VITALS: BP 110/71
[2017-01-04 18:08] VITALS: BP 105/70
[2017-01-04 20:41] VITALS: BP 101/62
[2017-01-04 23:39] VITALS: BP 100/62
[2017-01-05] VITALS (9 sets, daily range): BP systolic 99–132; BP diastolic 60–87
[2017-01-05] MEDS ORDERED: SLF 3 ML SYR IV PRN (02:45)
[2017-01-05 05:15] LABS: MEAN CORPUSCULAR HEMOGLOBIN 25.1 pg (27.0-33.0); MEAN CORPUSCULAR HGB CONC 31.5 g/dl (32.0-36.5); MEAN CORPUSCULAR VOLUME 79.9 fl (80.0-96.0); PLATELET COUNT, AUTOMATED 265 10^3/uL (150-450); RED CELL DISTRIBUTION WIDTH 16.7 % (11.5-14.5); WHITE BLOOD COUNT 5.1 10^3/uL (4.0-10.0)
[2017-01-05 05:45] LABS: ANION GAP 6 MEQ/L (8-16); BLOOD UREA NITROGEN 19 MG/DL (7-18); CALCIUM LEVEL 8.7 MG/DL (8.5-10.1); CARBON DIOXIDE LEVEL 30 MEQ/L (21-32); CHLORIDE LEVEL 105 MEQ/L (98-107); CREATININE FOR GFR 0.89 MG/DL (0.70-1.30); GLOMERULAR FILTRATION RATE > 60.0 (>60); GLUCOSE, FASTING 87 MG/DL (70-105); POTASSIUM SERUM 3.5 MEQ/L (3.5-5.1); SODIUM LEVEL 141 MEQ/L (136-145)
[2017-01-05] MEDS: FUROSEMIDE 100 MG/10 ML VIAL (J1940) IV SCH ×3 (06:49→23:00)
[2017-01-05] MEDS: SLF 3 ML SYR IV SCH ×3 (06:49→20:36)
[2017-01-05] MEDS: SENOKOT S TAB PO SCH ×2 (09:00→20:36)
[2017-01-05] MEDS: ENOXAPARIN 40 MG/0.4 ML SYRINGE (J1650) SC SCH (09:00)
[2017-01-05] MEDS: LISINOPRIL *2.5 MG* TAB PO SCH (10:00)
[2017-01-05] MEDS: METOPROLOL TART 25 MG TABLET PO SCH ×2 (10:01→20:36)
[2017-01-05] MEDS: ASPIRIN ENTERIC 325 MG TAB PO SCH (10:01)
--- NOTE | 2017-01-05 10:20 | IPNPDOC ---
Subjective Date Seen The patient was seen on 01/05/17. Subjective Chief Complaint/HPI The patient is a 46-year-old male admitted with a reason for visit of Chf Exacerabation. Events since last encounter Sob much better this morning, pateint fully awake and alert this am. leg swelling still unchanged with fluid oozing from severeal spots on both sides, Not requiring any oxygen , no fever or chills, no chest pain , no abdominal pain nausea or vomiting or diarrhea. Objective Physical Examination General Exam: Positive: Alert, Cooperative, No Acute Distress Eye Exam: Positive: PERRLA, Conjunctiva & lids normal, EOMI, Negative: Sclera icteric ENT Exam: Positive: Atraumatic, Mucous membr. moist/pink, Pharynx Normal Neck Exam: Positive: Supple, Negative: JVD, thyromegaly Chest Exam: Positive: Rales, Diminished Heart Exam: Positive: Rate Normal, Tachycardic, Regular Rhythm, Normal S1, Normal S2, Negative: Gallops, Murmurs, Rubs Telemetry: Positive: No significant arrhythmia Abdomen Exam: Positive: Normal bowel sounds, Soft, Negative: Tenderness, Hepatospenomegaly Extremity Exam: Positive: Edema, Swelling Skin Exam: Positive: Other skin issue (chronic stasis dermatitis with features of lymphedema. ) Assessment /Plan Problems (1) Acute on chronic combined systolic (congestive) and diastolic (congestive) heart failure Status: Acute Problem Text: will continue with IV lasix and fluid restriction patient has difficulty in following fluid restriction as says he has so much dry mouth that he has to take frequent sips of fluids. daily weight and 2 gm sodium diet (2) Dilated cardiomyopathy Status: Chronic Problem Text: thought to be primary cardiomyopathy rather than ischemic cardiomyopathy as no history of DM or HTN or HLD. Alcohol may also have played a part as did abuse alcohol till september 2016. EF of 10 to 15 % (3) Ventricular tachycardia Status: Chronic Problem Text: history of frequent nonsustained V tach in the past has a defibrillator life vest on. patient has been started on aggressive management of CHF since september to see if his EF improves or not and then whether he will qualify for a AICD. (4) Obesity Status: Chronic (5) Tobacco dependence Status: Chronic Problem Text: continues to smoke. counselled about stopping smoking. Plan/VTE VTE Prophylaxis Ordered?: Yes VS, I&O, 24H, Fishbone Vital Signs/I&O Vital Signs Date Time Temp Pulse Resp B/P (MAP) Pulse Ox O2 Delivery O2 Flow Rate FiO2 01/05/17 10:01 75 102/66 01/05/17 08:00 Room Air 01/05/17 08:00 97.0 20 95 01/04/17 08:11 2.0 I&O- Last 24 Hours up to 6 AM 01/06/17 06:00 Intake Total 360 ml Output Total 650 ml Balance -290 ml Laboratory Data 24H LABS Laboratory Tests 2 01/04/17 10:54: Lactic Acid Followup at 4 Hours 2.0 01/05/17 05:00: Nucleated Red Blood Cells % (auto) 0.0, Anion Gap 6L, Glomerular Filtration Rate > 60.0, Blood Urea Nitrogen 19H, Creatinine 0.89, Sodium Level 141, Potassium Level 3.5, Chloride Level 105, Carbon Dioxide Level 30, Calcium Level 8.7, Magnesium Level 2.0 CBC/BMP Laboratory Tests 01/05/17 05:00 Red Blood Count 5.17, Mean Corpuscular Volume 79.9 L, Mean Corpuscular Hemoglobin 25.1 L, Mean Corpuscular Hemoglobin Concent 31.5 L, Red Cell Distribution Width 16.7 H, Calcium Level 8.7 LAUREN ROMERO MD Jan 05, 2017 10:20
--- NOTE | 2017-01-05 19:14 | PULFX ---
DATE OF PROCEDURE: 01/05/2017 ORDERED BY: Dr. Busch Nocturnal recording oximetry was performed on room air. The patient's baseline saturation was 81%, saturations varied between 98 and 81%. There was a pattern of variability throughout the entire study. IMPRESSION: Abnormal nocturnal recording oximetry on room air with variable desaturations throughout, pattern suggesting Vinicio-Osullivan respirations.
[2017-01-06 05:00] VITALS: BP 102/70
[2017-01-06 05:29] LABS: MEAN CORPUSCULAR HEMOGLOBIN 25.1 pg (27.0-33.0); MEAN CORPUSCULAR HGB CONC 31.3 g/dl (32.0-36.5); MEAN CORPUSCULAR VOLUME 80.3 fl (80.0-96.0); PLATELET COUNT, AUTOMATED 272 10^3/uL (150-450); RED CELL DISTRIBUTION WIDTH 17.1 % (11.5-14.5); WHITE BLOOD COUNT 5.1 10^3/uL (4.0-10.0)
[2017-01-06] MEDS: SLF 3 ML SYR IV SCH ×3 (05:36→21:22)
[2017-01-06 05:45] LABS: ANION GAP 8 MEQ/L (8-16); BLOOD UREA NITROGEN 18 MG/DL (7-18); CALCIUM LEVEL 8.4 MG/DL (8.5-10.1); CARBON DIOXIDE LEVEL 29 MEQ/L (21-32); CHLORIDE LEVEL 104 MEQ/L (98-107); CREATININE FOR GFR 0.99 MG/DL (0.70-1.30); GLOMERULAR FILTRATION RATE > 60.0 (>60); GLUCOSE, FASTING 126 MG/DL (70-105); MAGNESIUM LEVEL 1.9 MG/DL (1.8-2.4); POTASSIUM SERUM 3.5 MEQ/L (3.5-5.1); SODIUM LEVEL 141 MEQ/L (136-145)
[2017-01-06 08:00] VITALS: BP 117/74
--- NOTE | 2017-01-06 09:01 | IPNPDOC ---
Subjective Date Seen The patient was seen on 01/06/17. Subjective Chief Complaint/HPI The patient is a 46-year-old male admitted with a reason for visit of Chf Exacerabation. Events since last encounter Patient says wants to go home I explained that he will need to stay another 2 or 3 days to get the fluid off his legs which are still oozing fluid. Patient is unhappy about this. Last night pulse dropped to 27 lowest patient was symptomatic and immediately pulse again picked up. Telemetry also shows NSVT. Objective Physical Examination General Exam: Positive: Alert, Cooperative, No Acute Distress Eye Exam: Positive: PERRLA, Conjunctiva & lids normal, EOMI, Negative: Sclera icteric ENT Exam: Positive: Atraumatic, Mucous membr. moist/pink, Pharynx Normal Neck Exam: Positive: Supple, Negative: JVD, thyromegaly Chest Exam: Positive: Rales, Diminished Heart Exam: Positive: Rate Normal, Tachycardic, Regular Rhythm, Normal S1, Normal S2, Negative: Gallops, Murmurs, Rubs Telemetry: Positive: No significant arrhythmia Abdomen Exam: Positive: Normal bowel sounds, Soft, Negative: Tenderness, Hepatospenomegaly Extremity Exam: Positive: Edema, Swelling Skin Exam: Positive: Other skin issue (chronic stasis dermatitis with features of lymphedema. ) Assessment /Plan Problems (1) Acute on chronic combined systolic (congestive) and diastolic (congestive) heart failure Status: Acute Problem Text: will continue with IV lasix and fluid restriction patient has difficulty in following fluid restriction as says he has so much dry mouth that he has to take frequent sips of fluids. daily weight and 2 gm sodium diet (2) Dilated cardiomyopathy Status: Chronic Problem Text: thought to be primary cardiomyopathy though alcohol may also have played a part it is most likely nonischemic cardiomyopathy as no h/o DM or HTN or HLD however will need a cardiac cath in the near future. EF of 10 to 15 % Does say has stopped drinking since september. (3) Ventricular tachycardia Status: Chronic Problem Text: history of frequent nonsustained V tach in the past has a life vest on. patient has been started on aggressive management of CHF since september to see if his EF improves or not and then whether he will qualify for a AICD. (4) Obesity Status: Chronic (5) Tobacco dependence Status: Chronic Problem Text: continues to smoke. counselled about stopping smoking. (6) Vinicio-Osullivan breathing disorder Status: Chronic Problem Text: Patient had nocturnal pulse oximetry done which is suggestive of Vinicio osullivan breathing disorder. will continue with oxygen prn. Plan/VTE VTE Prophylaxis Ordered?: Yes VS, I&O, 24H, Fishbone Vital Signs/I&O Vital Signs Date Time Temp Pulse Resp B/P (MAP) Pulse Ox O2 Delivery O2 Flow Rate FiO2 01/06/17 05:00 97.0 74 18 102/70 (81) 98 Room Air 01/06/17 04:00 2.0 Laboratory Data 24H LABS Laboratory Tests 2 01/06/17 05:17: Nucleated Red Blood Cells % (auto) 0.0, Anion Gap 8, Glomerular Filtration Rate > 60.0, Blood Urea Nitrogen 18, Creatinine 0.99, Sodium Level 141, Potassium Level 3.5, Chloride Level 104, Carbon Dioxide Level 29, Calcium Level 8.4L, Magnesium Level 1.9 CBC/BMP Laboratory Tests 01/06/17 05:17 Red Blood Count 5.22, Mean Corpuscular Volume 80.3, Mean Corpuscular Hemoglobin 25.1 L, Mean Corpuscular Hemoglobin Concent 31.3 L, Red Cell Distribution Width 17.1 H, Calcium Level 8.4 L LAUREN ROMERO MD Jan 06, 2017 09:01
[2017-01-06] MEDS: SENOKOT S TAB PO SCH ×2 (09:20→21:22)
[2017-01-06] MEDS: FUROSEMIDE 40 MG/4 ML VIAL (J1940) IV SCH ×2 (09:21→17:46)
[2017-01-06] MEDS: ASPIRIN ENTERIC 325 MG TAB PO SCH (09:21)
[2017-01-06] MEDS: ENOXAPARIN 40 MG/0.4 ML SYRINGE (J1650) SC SCH ×2 (09:24→09:26)
[2017-01-06] MEDS: METOPROLOL TART 25 MG TABLET PO SCH ×2 (09:24→21:21)
[2017-01-06] MEDS: LISINOPRIL *2.5 MG* TAB PO SCH (09:24)
[2017-01-06 12:00] VITALS: BP 101/72
[2017-01-06 16:00] VITALS: BP 118/78
[2017-01-06] MEDS ORDERED: DIGOXIN 0.25 MG TAB PO ONE (19:00)
[2017-01-06 20:00] VITALS: BP 107/77
--- NOTE | 2017-01-06 20:12 | CR ---
DATE OF CONSULTATION: 01/06/2017 PRIMARY CARE PROVIDER: CHIVO Anton REASON FOR CONSULTATION: Heart failure. HISTORY OF PRESENT ILLNESS: A 46-year-old male was diagnosed in the month of September 2016 with congestive heart failure secondary to left ventricular systolic dysfunction. At the time left ventricular ejection fraction (LVEF) was reported to be about 15%. While in the hospital, he was found to have episodes of nonsustained ventricular tachycardia. He was discharged home on a LifeVest, which he has been wearing. Since then, he has had multiple admissions to this hospital, and the most recent is on 01/04/2017. He presented to the hospital with a 1 to 2-week history of increasing pedal edema, shortness of breath, orthopnea. He was started on intravenous (IV) Lasix, and when I saw him earlier today he stated that he feels much better but still having significant bilateral pedal edema. He denies any chest pain. He has no syncope or near syncope. He has occasional lightheadedness. He does not usually feel those palpitations. He has a cough but no hemoptysis. He denies any bleeding. There is no focal manifestation. There is no fever or chills. There is no dysuria, polyuria, or hematuria. PAST MEDICAL HISTORY: Positive for, as mentioned above, cardiomyopathy, probably primary with a severely depressed global left ventricular systolic function, nonsustained ventricular tachycardia, anxiety/depression. There is no history of hypertension, hyperlipidemia, diabetes mellitus, kidney disease, thyroid disorders, coronary artery disease, peripheral arterial disease, cerebrovascular accident (CVA), sudden cardiac . He does have a history of alcohol abuse and smoking. PAST SURGICAL HISTORY: Positive for a cervical left node needle biopsy on the left side. Otherwise unremarkable. FAMILY HISTORY: The patient's mother has history of coronary artery disease (CAD) and chronic obstructive pulmonary disease (COPD). His brothers and sisters have history of diabetes mellitus. His father in his 20s, presumably related to coronary artery disease. HOME MEDICATIONS: - aspirin 325 mg by mouth daily - Lasix 40 mg by mouth twice a day - metoprolol tartrate 25 mg by mouth twice a day - lisinopril 2.5 mg by mouth daily SOCIAL HISTORY: Patient lives with his . He is no longer drinking alcohol. He is trying to quit smoking. He has developed side effects to spironolactone, breast tenderness. ADVANCE DIRECTIVE: Patient is a full code. PHYSICAL EXAMINATION: Patient is alert and oriented in no acute distress at rest. VITAL SIGNS: When I saw him earlier today revealed a blood pressure of 117/74 with a pulse of 75, respirations 17, and his maximum temperature was 98 degrees Fahrenheit with an oxygen saturation of 97% on room air. HEAD, EYES, EARS, NOSE, AND THROAT: Atraumatic. NECK: Supple. Extended jugular. LUNGS: Did not reveal any wheezing or crackles. HEART: Revealed normal S1, S2 without gallops. The point of maximal impulse (PMI) is displaced inferiorly and laterally. There is no rub. I could not appreciate any murmurs. ABDOMEN: Soft. EXTREMITIES: Revealed +2 to +3 bilateral leg edema. NEUROLOGIC: Grossly is negative for focal deficit. LABORATORY DATA: CBC done today revealed a WBC of 5.1, hemoglobin 13.1, hematocrit 41.9, and platelets 272,000. On admission the CBC revealed a WBC of 13.2, hemoglobin 13.6, hematocrit 42.2, and platelets 278,000. BMP done today revealed a sodium of 141, potassium 3.5, chloride 104, CO2 of 29, BUN 18, creatinine 0.99, GFR more than 60, fasting glucose 126, and calcium 8.4. Serum magnesium is 1.9. Serum proBNP on admission was 13,440. On admission, BUN and creatinine were 21 and 0.86, respectively. Chest x-ray on admission revealed cardiomegaly and findings consistent with congestive heart failure, increased vascular markings. Electrocardiogram on admission revealed normal sinus rhythm at 89 beats per minute, poor R-wave progression, prior anterior septal infarct. Nonspecific ST-T abnormalities. , and isolated premature ventricular contractions (PVCs). Overnight oximetry done on 01/05/2017 revealed desaturations and respiratory pattern suggestive of Vinicio colindres respirations. IMPRESSION: A 46-year-old male with acute on chronic decompensated congestive heart failure secondary to left ventricular systolic dysfunction, severe, that may be related to underlying primary cardiomyopathy. We still need to rule out underlying coronary artery disease (CAD). Upon talking to him and the , it does not seem that he is quite compliant with diet, but he does take his medications regularly. A low-salt diet was recommended, and he was strongly advised to check his weight daily, and if he gains more than 4 pounds over 2 days to call the office and inform us. Then further recommendation will be given hospitalization. He does have an appointment with the office, and he will keep the same. I will see him later this month in the week after . He has been having a problem with his getting Medicaid, but he stated that he will have it this coming month of January. He does not want to proceed with any cardiac workup at this present time. Will continue with the beta mercedes as well as the angiotensin-converting enzyme (PAVAN) inhibitor. The diuretics can be adjusted as needed. He will be started on digoxin. This will not prolong his survival but has been shown to decrease hospitalization in small trial. He does not tolerate spironolactone. He will continue wearing the LifeVest. Smoking cessation was strongly recommended. It was a pleasure to participate in the care of Mr. Sven Boland for his underlying cardiac condition. I will continue to monitor him along with you, and over the weekend he will be seen by Dr. Julian. Once again, I will see him upon discharge in the week after or sooner if necessary.
[2017-01-06 23:59] VITALS: BP 146/71
[2017-01-07 04:00] VITALS: BP 99/66
[2017-01-07 05:05] LABS: MEAN CORPUSCULAR HGB CONC 31.1 g/dl (32.0-36.5); MEAN CORPUSCULAR VOLUME 80.5 fl (80.0-96.0); PLATELET COUNT, AUTOMATED 259 10^3/uL (150-450); RED CELL DISTRIBUTION WIDTH 17.3 % (11.5-14.5); WHITE BLOOD COUNT 5.2 10^3/uL (4.0-10.0)
[2017-01-07 05:19] LABS: ANION GAP 8 MEQ/L (8-16); BLOOD UREA NITROGEN 17 MG/DL (7-18); CALCIUM LEVEL 8.4 MG/DL (8.5-10.1); CARBON DIOXIDE LEVEL 28 MEQ/L (21-32); CHLORIDE LEVEL 104 MEQ/L (98-107); GLOMERULAR FILTRATION RATE > 60.0 (>60); GLUCOSE, FASTING 94 MG/DL (70-105); MAGNESIUM LEVEL 1.9 MG/DL (1.8-2.4); POTASSIUM SERUM 3.5 MEQ/L (3.5-5.1); SODIUM LEVEL 140 MEQ/L (136-145)
[2017-01-07] MEDS: SLF 3 ML SYR IV SCH (05:33)
[2017-01-07 08:00] VITALS: BP 118/77
[2017-01-07 08:53] VITALS: BP 117/77
[2017-01-07] MEDS: METOPROLOL TART 25 MG TABLET PO SCH (08:53)
[2017-01-07] MEDS: ASPIRIN ENTERIC 325 MG TAB PO SCH (08:53)
[2017-01-07] MEDS: LISINOPRIL *2.5 MG* TAB PO SCH (08:53)
[2017-01-07] MEDS: SENOKOT S TAB PO SCH (08:53)
[2017-01-07] MEDS: ENOXAPARIN 40 MG/0.4 ML SYRINGE (J1650) SC SCH (08:54)
[2017-01-07] MEDS: FUROSEMIDE 40 MG/4 ML VIAL (J1940) IV SCH (08:54)
[2017-01-07] MEDS ORDERED: DIGOXIN 0.125 MG TAB PO SCH (09:00)
--- NOTE | 2017-01-07 10:33 | IPNPDOC ---
Subjective Date Seen The patient was seen on 01/07/17. Subjective Chief Complaint/HPI The patient is a 46-year-old male admitted with a reason for visit of Chf Exacerabation. Events since last encounter feels much better, no sob , slept well, says able to lie flat in bed. no fever or chills, no chest pain , His life vest keeps alarming however no arrhythmias on the tele corresponding to the alarms. Legs still very swollen and oozing fluid. Pateint very insistent on going home. Objective Physical Examination General Exam: Positive: Alert, Cooperative, No Acute Distress Eye Exam: Positive: PERRLA, Conjunctiva & lids normal, EOMI, Negative: Sclera icteric ENT Exam: Positive: Atraumatic, Mucous membr. moist/pink, Pharynx Normal Neck Exam: Positive: Supple, Negative: JVD, thyromegaly Chest Exam: Positive: Rales, Diminished Heart Exam: Positive: Rate Normal, Tachycardic, Regular Rhythm, Normal S1, Normal S2, Negative: Gallops, Murmurs, Rubs Telemetry: Positive: No significant arrhythmia Abdomen Exam: Positive: Normal bowel sounds, Soft, Negative: Tenderness, Hepatospenomegaly Extremity Exam: Positive: Edema, Swelling Skin Exam: Positive: Other skin issue (chronic stasis dermatitis with features of lymphedema. ) Assessment /Plan Problems (1) Acute on chronic combined systolic (congestive) and diastolic (congestive) heart failure Status: Acute Problem Text: will continue with IV lasix and fluid restriction patient has difficulty in following fluid restriction as says he has so much dry mouth that he has to take frequent sips of fluids. daily weight and 2 gm sodium diet (2) Dilated cardiomyopathy Status: Chronic Problem Text: Dialated Cardiomyopathy possibly primary cardiomyopathy supper added by alcohol abuse in the past. Unknown if there is any added CAD and ischemic cardiomyopathy also. There is no h/o diabetes or hypertension no possibility of added ischemic cardiomyopathy is low . Patient needs cardiac cath for definitive diagnosis. Patient's says his medicaid will kick in in January . He does not want to have cardiac cath before that. EF of 10 to 15 % Does say has stopped drinking more than a year ago. (3) Ventricular tachycardia Status: Chronic Problem Text: history of V tach in the past has a life vest on. patient has been started on aggressive management of CHF since september to see if his EF improves or not and then whether he will qualify for a AICD. (4) Obesity Status: Chronic (5) Tobacco dependence Status: Chronic Problem Text: continues to smoke. counselled about stopping smoking. (6) Vinicio-Osullivan breathing disorder Status: Chronic Problem Text: Patient had nocturnal pulse oximetry done which is suggestive of Vinicio osullivan breathing disorder. This is due to advanced heart failure. The longest period of desaturation below 88% was 3 min and 05 seconds so he does not qualify for home oxygen We will ambulate him and see if there is desaturations with ambulation and whether he needs home oxygen or not. Plan/VTE VTE Prophylaxis Ordered?: Yes VS, I&O, 24H, Fishbone Vital Signs/I&O Vital Signs Date Time Temp Pulse Resp B/P (MAP) Pulse Ox O2 Delivery O2 Flow Rate FiO2 01/07/17 08:54 78 01/07/17 08:53 117/77 01/07/17 08:15 Room Air 01/07/17 08:00 98.1 16 99 01/06/17 04:00 2.0 I&O- Last 24 Hours up to 6 AM 01/08/17 06:00 Intake Total 120 ml Output Total 0 ml Balance 120 ml Laboratory Data 24H LABS Laboratory Tests 2 01/07/17 04:56: Nucleated Red Blood Cells % (auto) 0.0, Anion Gap 8, Glomerular Filtration Rate > 60.0, Blood Urea Nitrogen 17, Creatinine 0.90, Sodium Level 140, Potassium Level 3.5, Chloride Level 104, Carbon Dioxide Level 28, Calcium Level 8.4L, Magnesium Level 1.9 CBC/BMP Laboratory Tests 01/07/17 04:56 Red Blood Count 5.19, Mean Corpuscular Volume 80.5, Mean Corpuscular Hemoglobin 25.0 L, Mean Corpuscular Hemoglobin Concent 31.1 L, Red Cell Distribution Width 17.3 H, Calcium Level 8.4 L LAUREN ROMERO MD Jan 07, 2017 10:32
[2017-01-07] MEDS ORDERED: LASI40TA PO (11:03)
[2017-01-07] MEDS ORDERED: DIGO0.12 PO (11:03)
--- NOTE | 2017-01-07 14:56 | IPN ---
DATE: 01/07/2017 As I walked into Mr. Boland's room he immediately tells me that he wants to go home and if I do not let him then he will sign against medical advice (AMA). He feels much better, was able to sleep without difficulty and has no complaints. Denies any chest pain. Blood pressure 117/77. Heart rate has been in 60s and 70s and he is afebrile. Saturation 99% on room air. His fluid balance yesterday was about 1600 negative. Weight is down to 102.2 kg. He is alert and oriented and appropriate. His LifeVest is in place. Lungs are clear. Heart exam reveals somewhat muffled heart sounds but regular rhythm. I do not appreciate gallop or rub. Abdomen is soft, nontender. He still has at least 2+ edema almost to the level of his knees. Neurologically, he is intact. Laboratory etienne, basic metabolic panel is normal. Potassium 3.5, BUN 17, creatinine 0.9, glucose 94, and CBC, hemoglobin 13, hematocrit 41.8 and platelet count 259,000 ASSESSMENT AND PLAN: Mr. Boland is a 46-year-old man who has severe left ventricular (LV) systolic dysfunction resulting congestive heart failure. He came with paroxysmal nocturnal dyspnea (PND) and orthopnea and rapidly improved with intravenous (IV) diuretics. Unfortunately, he had has relatively limited understanding of his condition and I am afraid that this will negatively impact his further prognosis. I talked to him about need for sodium and fluid restrictions, but I am skeptical that he will follow them. His , who is present, seems to have much a better grasp on things but she works, and consequently, I am afraid that in her absence the compliance will remain poor. To reduce the chances of early readmissions, I think we should have increase the dose of diuretics. He was on furosemide 40 mg twice a day at home and I talked to Dr. Busch and will discharge him on 80 mg in the morning and 40 mg at the afternoon. I also stressed again the sodium component of diet. As far as additional medications, he is on low-dose angiotensin-converting enzyme (PAVAN) inhibitor and it probably cannot be safely titrated up because his blood pressure is marginal. He is also on low-dose beta-mercedes and digoxin that was just started. These medications will be continued. Even though this is a very treatable condition, I am quite worried about his prognosis mostly due to his lack of understanding and reduced capacity to control his behavior. He will follow on outpatient basis with Dr. Roc. BELLO
--- NOTE | 2017-01-09 07:39 | DSES ---
DATE OF ADMISSION: 01/04/2017 DATE OF DISCHARGE: 01/07/2017 DISCHARGE DIAGNOSES: 1. Dilated cardiomyopathy, most probably prior myocardial myopathy, with possible worsening with history of alcohol abuse. 2. Acute on chronic combined systolic and diastolic congestive heart failure with ejection fraction of 10-15%. 3. History of sustained ventricular tachycardia in the past, has a LifeVest on. 4. Obesity. 5. Tobacco dependence. 6. 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 7. Alcohol abuse in the past, last drink on 10/18/2016. DISCHARGE MEDICATIONS: - Lasix 80 mg in the a.m. and 40 mg in the p.m. - digoxin 0.125 mg by mouth daily - aspirin 325 mg by mouth daily - lisinopril 2.5 mg by mouth daily - metoprolol 25 mg twice a day HOSPITAL COURSE: This is a 46-year-old male who has been in and out of the hospital since September of 2016. At that time, he was diagnosed with dilated cardiomyopathy with ejection fraction of 10-15% with frequent episodes of nonsustained ventricular tachycardia. At that time, he was fluid overloaded and since then has been placed on defibrillator LifeVest. The patient has been on a trial of medications since September to be tried for three months to see if there is an improvement in ejection fraction and to decide whether the patient is a candidate for automatic implantable cardioverter-defibrillator (AICD) or not. The patient also needs cardiac catheterization to see if there is any underlying coronary artery disease or any indication of ischemic cardiomyopathy. However, the patient has been having a problem with his Medicaid so he has not wanted to be referred to [place] for cardiac catheterization until January when his Medicaid is going to become active. In the past four months, he has had several hospitalizations for fluid overload and acute exacerbation of congestive heart failure. This admission also he came in grossly fluid overloaded with congestive heart failure (CHF) exacerbation. The patient was admitted to the hospital and aggressively diuresed. After diuresis, the patient's shortness of breath improved and he was feeling better. The patient's both legs were hugely swollen with oozing of fluid which have started improving. The patient has been having trouble following fluid restrictions at home because he says he has frequent dry mouth issues, though his thinks that he has been compliant with his medications. The patient was seen by competitive intelligence analyst, Dr. Duff, in the hospital and was started on digoxin. The patient was noted to have abnormal respiratory pattern during the hospitalization so had a nocturnal pulse oximetry done which showed Vinicio-Osullivan pattern of respiration, however, the maximum time of desaturation below 88% was only 3 minutes and 0.5 seconds so he did not qualify for home oxygen. Also, at rest and with ambulation, he did not have any episodes of hypoxia, so he did not qualify for home oxygen. On the day of discharge, the patient did not have any complaints. He was feeling much better. His fluid status was improving. His vitals were stable. So he was discharged home. PHYSICAL EXAMINATION: VITAL SIGNS: Temperature 98.1. Pulse 78. Respiratory rate 16. Blood pressure 117/77. Pulse oximetry 99% in room air. GENERAL: The patient is awake, alert and oriented times three sitting up in bed in no acute distress. HEENT: Normocephalic, atraumatic. Moist mucous membranes. Anicteric eyes. CHEST: Clear to auscultation. CARDIOVASCULAR: S1, S2 regular with frequency PVCs. No rub, murmur or gallop. ABDOMEN: Obese, soft, nontender. Bowel sounds present. EXTREMITIES: 4+ bipedal edema with fluid leaking from the surface and changes of lymphedema and chronic stasis dermatitis. LABORATORY DATA: WBC 5.2, hemoglobin 13, platelets 259. Sodium 140, potassium 3.5, chloride 104, bicarbonate 28, BUN 17, creatinine 0.9, glucose 94, calcium 8.4, magnesium 1.9. DISPOSITION: Patient is discharged home in stable condition. DISCHARGE INSTRUCTIONS: Patient to followup with Dr. Duff on 01/20/2017. The patient to follow up with primary care provider in one week. Fluid restriction 1.5 liters per day. 2 gram sodium diet. Activity as tolerated.
== END 2017-01-07 12:25 | disposition home or self-care (01) | DRG 194 ==
LOC: M ED 05:52 → M ED INP 08:11 → M PCU 09:57
PROVIDERS: ADMIT Internal Medicine Nephrology; ATTEND Internal Medicine Nephrology
DX: I50.43 Acute on chronic combined systolic (congestive) and diastolic (congestive) heart failure (principal); R06.3 Periodic breathing; I42.0 Dilated cardiomyopathy; F17.200 Nicotine dependence, unspecified, uncomplicated; E66.9 Obesity, unspecified; Z79.899 Other long term (current) drug therapy; F10.10 Alcohol abuse, uncomplicated; Z79.82 Long term (current) use of aspirin

== ENCOUNTER 2017-01-09 14:21 | Emergency (ER) | payer SELFPAY ==
[~2017-01-09] VITALS: Ht 170.2 cm; Wt 100.0 kg
[~2017-01-09 14:21] MED LIST changes: +ASPI325T28 PO; +DIGO0.12 PO
[2017-01-09 17:53] LABS: BASO % 0.6 % (0.0-1.0); EOS % 0.1 % (0.0-3.0); IMMATURE GRANULOCYTE % 0.6 % (0-0); LYMPH % 14.6 % (24.0-44.0); MEAN CORPUSCULAR HEMOGLOBIN 25.4 pg (27.0-33.0); MEAN CORPUSCULAR VOLUME 79.2 fl (80.0-96.0); MONO # 0.6 10^3/uL (0.0-0.8); MONO % 8.6 % (0.0-5.0); NEUTROPHILS # 5.2 10^3/uL (1.8-7.7); NEUTROPHILS % 75.5 % (36.0-66.0); PLATELET COUNT, AUTOMATED 297 10^3/uL (150-450); RED CELL DISTRIBUTION WIDTH 18.1 % (11.5-14.5); WHITE BLOOD COUNT 6.9 10^3/uL (4.0-10.0)
--- NOTE | 2017-01-09 18:03 | REP ---
Clinical: Pain and swelling . Technique: Bell scale and color Doppler evaluation using linear high frequency transducer. Comparison: 10/12/2016 Findings: Ultrasound examination of the right and left lower extremity deep venous structures from the common femoral vein to the popliteal vein demonstrates normal compressibility flow and wave patterns in response to respiration and augmentation. There is no evidence for deep venous thrombosis. Bilateral subcutaneous edema and nonspecific inguinal lymph nodes are appreciated. Impression: No evidence for deep venous thrombosis. Edema. Signed by Tye Stratton MD 01/09/2017 05:54 P
[2017-01-09 18:08] LABS: INR 1.06
[2017-01-09 18:18] LABS: ALBUMIN 3.1 GM/DL (3.2-5.2); ALBUMIN/GLOBULIN RATIO 0.97 (1.00-1.93); ALKALINE PHOSPHATASE 353 U/L (45-117); ALT/SGPT 45 U/L (12-78); ANION GAP 7 MEQ/L (8-16); AST/SGOT 29 U/L (7-37); BILIRUBIN,TOTAL 1.4 MG/DL (0.2-1.0); BLOOD UREA NITROGEN 23 MG/DL (7-18); CALCIUM LEVEL 8.5 MG/DL (8.5-10.1); CARBON DIOXIDE LEVEL 31 MEQ/L (21-32); CHLORIDE LEVEL 103 MEQ/L (98-107); CREATININE FOR GFR 0.95 MG/DL (0.70-1.30); GLOMERULAR FILTRATION RATE > 60.0 (>60); GLUCOSE, FASTING 108 MG/DL (70-105); POTASSIUM SERUM 3.7 MEQ/L (3.5-5.1); SODIUM LEVEL 141 MEQ/L (136-145); TOTAL PROTEIN 6.3 GM/DL (6.4-8.2)
[2017-01-09 19:06] VITALS: BP 125/93
[2017-01-09] MEDS ORDERED: FUROSEMIDE 40 MG/4 ML VIAL (J1940) IV ONE (20:00)
--- NOTE | 2017-01-10 05:47 | ECGEPIP ---
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
--- NOTE | 2017-01-10 08:19 | REP ---
Clinical: Chest pain. Technique: PA and lateral. Comparison: 09/26/2016. Findings: Stable cardiomegaly and chronic interstitial changes are appreciated. No acute consolidation, effusion, or pneumothorax. Skeletal structures are intact. Impression: Stable cardiomegaly and interstitial changes. No acute cardiopulmonary process. Signed by Tye Stratton MD 01/09/2017 06:17 P
== END 2017-01-09 20:15 | disposition left against medical advice (07) ==
LOC: M ED 14:21
DX: I11.0 Hypertensive heart disease with heart failure (principal); Z72.0 Tobacco use

== ENCOUNTER 2017-01-14 15:13 | Inpatient (IN) | payer SELFPAY ==
[~2017-01-14] VITALS: Ht 170.2 cm; Wt 80.5 kg
[~2017-01-14 15:13] MED LIST changes: +VANCOMYCIN HCL 1,000 MG, VIAL MATE ADAPTER 1 EACH in D5W 250 ML IV SCH
--- NOTE | 2017-01-14 16:47 | REP ---
Clinical: Shortness of breath. Comparison: 01/09/2017. Findings: Stable cardiomegaly and chronic interstitial changes are appreciated. Mild interstitial edema cannot be excluded. No focal consolidation, effusion, or pneumothorax. Skeletal structures intact. Impression: Stable cardiomegaly and interstitial changes. Signed by Tye Stratton MD 01/14/2017 04:39 P
[2017-01-14 16:56] LABS: BASO % 0.4 % (0.0-1.0); EOS % 0.4 % (0.0-3.0); IMMATURE GRANULOCYTE % 0.3 % (0-0); LYMPH % 14.5 % (24.0-44.0); MEAN CORPUSCULAR HEMOGLOBIN 25.2 pg (27.0-33.0); MEAN CORPUSCULAR HGB CONC 32.1 g/dl (32.0-36.5); MEAN CORPUSCULAR VOLUME 78.5 fl (80.0-96.0); MONO # 0.7 10^3/uL (0.0-0.8); MONO % 10.5 % (0.0-5.0); NEUTROPHILS # 5.1 10^3/uL (1.8-7.7); NEUTROPHILS % 73.9 % (36.0-66.0); PLATELET COUNT, AUTOMATED 290 10^3/uL (150-450); RED CELL DISTRIBUTION WIDTH 18.6 % (11.5-14.5); WHITE BLOOD COUNT 6.9 10^3/uL (4.0-10.0)
[2017-01-14] MEDS ORDERED: FUROSEMIDE 40 MG/4 ML VIAL (J1940) IV SCH (17:00)
[2017-01-14 17:09] LABS: INR 1.04
[2017-01-14 17:19] LABS: ALBUMIN 2.9 GM/DL (3.2-5.2); ALBUMIN/GLOBULIN RATIO 0.78 (1.00-1.93); ALKALINE PHOSPHATASE 362 U/L (45-117); ALT/SGPT 45 U/L (12-78); ANION GAP 7 MEQ/L (8-16); AST/SGOT 34 U/L (7-37); BILIRUBIN,DIRECT 0.9 MG/DL (0.0-0.2); BILIRUBIN,TOTAL 1.5 MG/DL (0.2-1.0); BLOOD UREA NITROGEN 21 MG/DL (7-18); CALCIUM LEVEL 8.8 MG/DL (8.5-10.1); CARBON DIOXIDE LEVEL 32 MEQ/L (21-32); CHLORIDE LEVEL 100 MEQ/L (98-107); CREATININE FOR GFR 0.91 MG/DL (0.70-1.30); GLOMERULAR FILTRATION RATE > 60.0 (>60); GLUCOSE, FASTING 85 MG/DL (70-105); POTASSIUM SERUM 3.6 MEQ/L (3.5-5.1); SODIUM LEVEL 139 MEQ/L (136-145); TOTAL PROTEIN 6.6 GM/DL (6.4-8.2)
[2017-01-14 17:23] LABS: ERYTHROCYTE SEDIMENTATION RATE 7 mm/hr (0-15)
--- NOTE | 2017-01-14 17:49 | HPEPDOC ---
General Date of Admission 01/14/2017 Primary Care Physician: Teddy Carpenter [facility] Chief Complaint The patient is a 46-year-old male admitted with a reason for visit of Leg Pain. Source: Patient, Family Timing/Duration: Day(s) (past five days) Severity: Moderate Associated Symptoms: Shortness of breath History of Present Illness 46 y/o male past medical history of nonischemic dilated cardiomyopathy due to alcohol abuse with an ejection fraction of tenderness 15%, severe on chronic systolic and diastolic congestive heart failure, history of nonsustained V. tach with LifeVest, hypertension who presents to the emergency department with a 5 day history of worsening left lower extremity pain, swelling and ulcer development. Patient states that he came to our facility 5 days ago with the same symptoms but refused admission, he is now back with worsening symptoms. Patient was recently admitted on 01/04/2017 for acute on chronic congestive heart failure. He was discharged 01/08/2017. He states that since discharge he has had worsening left lower extremity pain, redness, edema with sores developing that are weeping clear fluid. He denies any worsening shortness of breath although he does state he gets more short of breath laying down flat and with ambulation, he has a chronic cough from smoking of clear phlegm, he denies any fever, muscle aches, chills, recent sick contact or travel. He denies any diarrhea or blood in his stool he denies pain with urination or blood in his urine. He denies any weight gain. He states he is adhering to his 1500 fluid diet at home, does not consume excess salt and takes his medications religiously. His who is at bedside request that it be put into the note that his heart failure is not from alcohol abuse she stated that she would like this removed from his records, was explained to and patient that past notes could not be edited. Apparently his last drink was in February 2016 and that he has only ever drink socially for his entire life. Patient denies chest pain or feelings of his heart racing. He was supposed to have cardiac cath at [facility], due to insurance issues from his Medicaid he is unable to do this until January 2017 after he has had his LifeVest for 3 months. Home Medications Scheduled (Digoxin) 125 Mcg Tab, 125 MCG PO DAILY, (Reported) Aspirin (Aspirin) 325 Mg Tab, 325 MG PO DAILY, (Reported) Furosemide (Furosemide) 80 Mg Tab, 80 MG PO DAILY, (Reported) Furosemide (Furosemide) 40 Mg Tab, 40 MG PO QHS, (Reported) Lisinopril (Lisinopril) 2.5 Mg Tab, 2.5 MG PO DAILY, (Reported) Metoprolol Tartrate (Metoprolol Tartrate) 25 Mg Tab, 25 MG PO BID, (Reported) Allergies Coded Allergies: Spironolactone (Unverified Adverse Reaction, Intermediate, SWELLING OF LOWER EXTREMITIES, RED COLORED URINE, 01/04/17) Past Medical History Medical History Nonischemic dilated cardiomyopathy Ejection fraction 10-15% Systolic and diastolic congestive heart failure Trial of life as since September 2016 due to nonsustained V. tach depression Tobacco abuse Alcohol abuse, states that he has never had a problem with alcohol and only drinks socially. Surgical History Cervical lymph node FNA Family History Father in his 20s due to heart disease Mother is alive and has COPD with tobacco dependence Brother is alive with diabetes mellitus and heart disease sister alive with diabetes mellitus Social History * Smoker: current smoker (half pack per day since age 14) Alcohol: rarely Drugs: denies Recent Travel/Sick Contacts: Denies: Recent travel Apparently the patient lives independently with his and daughter at home Has an adult son He does not have any pets in the home He admits to tobacco dependence half a pack a day for the last 30 years occasional alcohol use Denies illicit drug use Denies travel domestic her international Review of Symptoms Constitutional: Reports: Malaise, Fatigue, Denies: Chills, Fever, Night Sweats, Weakness Eyes: Denies: Pain Skin: Reports: Lesions (left lower extremity numerous ulcerations oozing clear fluid), Denies: Rash Pulmonary: Reports: Dyspnea, Cough (clear phlegm) Cardiovascular: Reports: Orthopnea, Paroxysmal Noc. Dyspnea, Edema (bilateral lower extremity), Denies: Chest Pain, Palpitations, Lt Headedness Gastrointestinal: Denies: Nausea, Vomiting, Abdominal Pain, Diarrhea, Constipation Genitourinary: Denies: Dysuria Hematologic: Denies: Bruising Neurological: Denies: Weakness, Numbness Psych: Reports: Mood Normal Physical Examination General Exam: Positive: Alert, Cooperative (playing on his phone during exam), No Acute Distress Eye Exam: Positive: Conjunctiva & lids normal, EOMI, Negative: Sclera icteric, Ptosis ENT Exam: Positive: Atraumatic, Mucous membr. moist/pink, Pharynx Normal, Tongue Midline Neck Exam: Positive: Supple, Negative: JVD Chest Exam: Positive: Diminished (diminished throughout), Other (crackles bibasilar), Negative: Clear to auscultation, Rales, Rhonchi, Wheezing Heart Exam: Positive: Rate Normal, Normal S1, Normal S2, Negative: Tachycardic, Bradycardic Abdomen Exam: Positive: Normal bowel sounds, Soft, Other (appears distended), Negative: Tenderness, Hepatospenomegaly, Mass Extremity Exam: Positive: Edema (+2 pitting left lower extremity, trace pitting right lower extremity), Normal pulses, Tenderness (redness, multiple ulceration with clear fluid drainage of left lower extremity with pain to palpitation), Negative: Clubbing, Cyanosis Skin Exam: Positive: Breakdown Neuro Exam: Positive: Normal Speech Psych Exam: Positive: Mental status NL Vital Signs Vital Signs Date Time Temp Pulse Resp B/P (MAP) Pulse Ox O2 Delivery O2 Flow Rate FiO2 01/14/17 15:36 01/14/17 15:22 96.2 98 20 96 Room Air Laboratory Data Labs 24H Laboratory Tests 2 01/14/17 16:48: Immature Granulocyte % (Auto) 0.3H, White Blood Count 6.9, Red Blood Count 5.31 , Hemoglobin 13.4L, Hematocrit 41.7L, Mean Corpuscular Volume 78.5L, Mean Corpuscular Hemoglobin 25.2L, Mean Corpuscular Hemoglobin Concent 32.1, Red Cell Distribution Width 18.6H, Platelet Count 290, Neutrophils (%) (Auto) 73.9H , Lymphocytes (%) (Auto) 14.5L, Monocytes (%) (Auto) 10.5H, Eosinophils (%) ( Auto) 0.4, Basophils (%) (Auto) 0.4, Neutrophils # (Auto) 5.1, Lymphocytes # ( Auto) 1.0L, Monocytes # (Auto) 0.7, Eosinophils # (Auto) 0.0, Basophils # (Auto ) 0.0, Immature Granulocyte # (Auto) 0.0, Nucleated Red Blood Cells % (auto) 0.0 , Erythrocyte Sedimentation Rate 7, Prothrombin Time 13.7, Prothromb Time International Ratio 1.04, Anion Gap 7L, Glomerular Filtration Rate > 60.0, Lactic Acid Level 1.3, Calcium Level 8.8, Aspartate Amino Transf (AST/SGOT) 34, Alanine Aminotransferase (ALT/SGPT) 45, Alkaline Phosphatase 362H, Total Bilirubin 1.5H, Direct Bilirubin 0.9H, Troponin I 0.02, C-Reactive Protein, Quantitative 3.26H, Total Protein 6.6, Albumin 2.9L, Albumin/Globulin Ratio 0.78L CBC/BMP Laboratory Tests 01/14/17 16:48 Red Blood Count 5.31, Mean Corpuscular Volume 78.5 L, Mean Corpuscular Hemoglobin 25.2 L, Mean Corpuscular Hemoglobin Concent 32.1, Red Cell Distribution Width 18.6 H, Neutrophils (%) (Auto) 73.9 H, Lymphocytes (%) (Auto ) 14.5 L, Monocytes (%) (Auto) 10.5 H, Eosinophils (%) (Auto) 0.4, Basophils (% ) (Auto) 0.4, Neutrophils # (Auto) 5.1, Lymphocytes # (Auto) 1.0 L, Monocytes # (Auto) 0.7, Eosinophils # (Auto) 0.0, Basophils # (Auto) 0.0 Microbiology Microbiology 01/14/17 Blood Culture, Received Pending Assessment/Plan This is a 46-year-old male who presents to the emergency department with increased left lower extremity pain, edema and numerous ulceration exuding clear fluid. 1. Left lower extremity edema likely secondary to acute on chronic combined systolic and diastolic CHF -This is likely due to fluid accumulation from an exasperation of the patient's chronic diastolic and systolic heart failure -We'll aggressively diurese patient-lasix 40 IV BID -Fluid restriction 1800 -Echo performed September 2016 showed EF of 10-50% with diastolic heart failure and moderate pulmonary hypertension with high CVP, we'll repeat echocardiogram -First set of troponins negative, will trend, EKG in ED did not show any acute ST-T segment changes concerning for active [place] [address] when he presented to ED on 01/09/2015 -Ultrasound performed an ED was negative for DVT -will check digoxin level 2. History of nonsustained V. tach -Patient will be admitted to PCU -Patient to continue to wear LifeVest -Electrolytes within normal limits 3. Chronic shortness of breath Likely secondary to combined systolic and diastolic heart failure Chest x-ray in ED showed stable cardiomegaly with interstitial changes Patient will be actively diuresed 4. left lower extremity cellulitis -afebrile and without a white count, however elevated CRP - prior admission showed positive wound culture for enterobacter cloacae complex , stenotrophomonas maltiphilia, staph. aureus, enterococus faecalis, streptococcus viridans group -based on the sensitivities of the above positive wound culture, will begin vancomycin and levaquin therapy -trend CRP 5. tobacco use/abuse -will give nicotine replacement to help with withdrawal -DuoNeb's therapy PRN for SOB 6. Hypertension -Stable 116/69 -Continue metoprolol 25 twice a day 7. DVT prophylaxis Heparin 5000 every 8 hours Plan / VTE VTE Prophylaxis Ordered?: Yes GME ATTESTATION GME ATTESTATION My faculty preceptor for this patient encounter was physically present during the encounter and was fully available. All aspects of the patient interview, examination, medical decision making process, and medical care plan development were reviewed and approved by the faculty preceptor. The faculty preceptor is aware and concurs with the plan as stated in the body of this note and will attest to such by his/her cosignature. ATTENDING NOTE I have both independently examined this patient as well as reviewed the H&P. I have discussed in detail with the resident the findings and plan of treatment as documented in the residents note. I will continue to follow the patient and offer further guidance to the patients care as necessary during this hospital stay. ROXANNA Forte MD, DO Jan 14, 2017 17:49 TERESA RODRÍGUEZ MD Jan 15, 2017 11:54
--- NOTE | 2017-01-14 17:50 | REPUSA ---
Clinical history: Pain, swelling. Findings: The common femoral, superficial femoral, popliteal, and other deep venous structures compre ss normally and demonstrate normal color Doppler flow. Normal venous waveforms with augmentation are seen. There is a right inguinal lymph node measuring 1.7 x 0.6 x 4.1 cm. There are two left inguinal lymph nodes, the largest measuring 2.5 x 1.2 x 1.5 cm. Impression: 1. No evidence of deep vein thrombosis in the femoral popliteal venous system. 2. Bilateral inguinal lymphadenopathy.
[2017-01-14] MEDS ORDERED: NICOTINE POLACRILEX 2 MG GUM PO PRN (18:15)
[2017-01-14] MEDS ORDERED: ACETAMINOPHEN TAB 650MG DOSE (2X325MG) PO PRN (18:30)
[2017-01-14] MEDS ORDERED: VANCOMYCIN HCL 1,000 MG in D5W 0 ML IV SCH (18:45)
[2017-01-14] MEDS ORDERED: IPRATROPIUM 0.5MG/ALBUTEROL 2.5MG INH SOL UD 3ML (DUONEB)(J7620) NEB PRN (18:45)
[2017-01-14] MEDS ORDERED: FURO40TA2 PO (19:13)
[2017-01-14] MEDS ORDERED: DIGO0.12 PO (19:13)
[2017-01-14] MEDS ORDERED: FURO80TA2 PO (19:13)
[2017-01-14] MEDS ORDERED: VANCOMYCIN HCL 1,000 MG, VIAL MATE ADAPTER 1 EACH in D5W 250 ML IV ONE (20:00)
[2017-01-14 20:05] VITALS: BP 119/76
[2017-01-14] MEDS: METOPROLOL TART 25 MG TABLET PO SCH (21:49)
[2017-01-14] MEDS: LevoFLOXacin IV 500 MG in APPROPRIATE DILUENT 1 EA IV SCH (22:34)
[2017-01-15] VITALS (7 sets, daily range): BP systolic 108–119; BP diastolic 71–82
[2017-01-15 00:09] LABS: DIGOXIN LEVEL 0.4 NG/ML (0.5-2.0)
[2017-01-15] MEDS: FUROSEMIDE 40 MG/4 ML VIAL (J1940) IV SCH ×3 (01:01→16:34)
[2017-01-15 05:42] LABS: BASO % 0.6 % (0.0-1.0); EOS % 0.6 % (0.0-3.0); IMMATURE GRANULOCYTE % 0.3 % (0-0); LYMPH # 0.9 10^3/uL (1.5-4.5); LYMPH % 14.6 % (24.0-44.0); MEAN CORPUSCULAR HEMOGLOBIN 25.1 pg (27.0-33.0); MEAN CORPUSCULAR HGB CONC 32.3 g/dl (32.0-36.5); MEAN CORPUSCULAR VOLUME 77.8 fl (80.0-96.0); MONO # 0.7 10^3/uL (0.0-0.8); MONO % 10.9 % (0.0-5.0); NEUTROPHILS # 4.6 10^3/uL (1.8-7.7); PLATELET COUNT, AUTOMATED 298 10^3/uL (150-450); RED CELL DISTRIBUTION WIDTH 18.1 % (11.5-14.5); WHITE BLOOD COUNT 6.3 10^3/uL (4.0-10.0)
[2017-01-15] MEDS ORDERED: VANCOMYCIN HCL 1,000 MG, VIAL MATE ADAPTER 1 EACH in D5W 250 ML IV SCH (06:00)
[2017-01-15 06:01] LABS: ALBUMIN 2.6 GM/DL (3.2-5.2); ALBUMIN/GLOBULIN RATIO 0.72 (1.00-1.93); ALKALINE PHOSPHATASE 337 U/L (45-117); ALT/SGPT 40 U/L (12-78); ANION GAP 8 MEQ/L (8-16); AST/SGOT 27 U/L (7-37); BILIRUBIN,TOTAL 1.6 MG/DL (0.2-1.0); BLOOD UREA NITROGEN 17 MG/DL (7-18); CALCIUM LEVEL 8.5 MG/DL (8.5-10.1); CARBON DIOXIDE LEVEL 29 MEQ/L (21-32); CHLORIDE LEVEL 103 MEQ/L (98-107); CREATININE FOR GFR 0.76 MG/DL (0.70-1.30); GLOMERULAR FILTRATION RATE > 60.0 (>60); GLUCOSE, FASTING 93 MG/DL (70-105); MAGNESIUM LEVEL 1.9 MG/DL (1.8-2.4); POTASSIUM SERUM 3.6 MEQ/L (3.5-5.1); SODIUM LEVEL 140 MEQ/L (136-145); TOTAL PROTEIN 6.2 GM/DL (6.4-8.2)
[2017-01-15] MEDS: ASPIRIN ENTERIC 325 MG TAB PO SCH (09:00)
[2017-01-15] MEDS: METOPROLOL TART 25 MG TABLET PO SCH ×2 (09:01→20:33)
[2017-01-15] MEDS: LISINOPRIL *2.5 MG* TAB PO SCH (09:02)
[2017-01-15] MEDS: DIGOXIN 0.125 MG TAB PO SCH (09:03)
--- NOTE | 2017-01-15 15:31 | ECHO ---
DATE OF STUDY: 01/15/2017 REFERRING PHYSICIAN: Dr. Malena Johnson INDICATION: Edema, cardiomyopathy, unspecified. HEIGHT: 67 inches. WEIGHT: 218 pounds. 2D MEASUREMENTS: Aortic root: 3.0 cm Proximal ascending aorta: 3.1 cm Left atrium: 4.7 cm Left atrial volume index: 42 Ventricular septum: 1.11 cm Posterior wall: 1.18 cm Inferior vena cava: 2.1 cm Left ventricle diastole: 7.1 cm Right ventricle: 4.9 cm DOPPLER MEASUREMENTS: Aortic valve velocity: 121 cm/s LVOT velocity: 100 cm/s LVOT VTI: 16.2 cm Mild mitral regurgitation. Mitral E velocity: 121 cm/s Mitral A velocity: 20.2 cm/s Mitral deceleration time: 155 ms Moderate tricuspid regurgitation. Estimated right ventricle systolic pressure: At least 53 mmHg, assuming a pressure of at least 20 mmHg. Very mild pulmonic regurgitation. MITRAL ANNULAR TISSUE DOPPLER: E prime septal: 4.1 cm/s E prime lateral: 7.3 cm/s DESCRIPTION: Rhythm was sinus. Image quality was fair. This is a 2D, M-mode, color flow Doppler, and pulse wave Doppler examination including mitral annular tissue Doppler. No pericardial effusion. CONCLUSIONS: 1. Severely dilated left ventricle with essentially akinesis involving the anterior wall, ventricular septum, and left ventricle apex, and severe global left ventricular (LV) hypokinesis elsewhere. Severe reduction overall LV systolic function. Left ventricular ejection fraction (LVEF) 10% by visual estimate. Cannot rule out organized apical LV thrombus. Restrictive LV diastolic filling pattern. 2. Severe left atrial dilatation. 3. Mild mitral regurgitation. Structurally normal-appearing mitral leaflets. 4. Moderate elevation of estimated right ventricle systolic pressure (at least 53 mmHg). Moderate tricuspid regurgitation with structurally normal tricuspid leaflets. Mild right ventricle dilatation with severe reduction in right ventricle systolic function (global hypokinesis). Moderate right atrial dilatation. Inferior vena cava plethora suggestive of elevated central venous pressure of at least 20 mmHg.
--- NOTE | 2017-01-15 16:41 | ECGEPIP ---
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
[2017-01-15] MEDS: LevoFLOXacin IV 500 MG in APPROPRIATE DILUENT 1 EA IV SCH (20:33)
[2017-01-15] MEDS: AUGMENTIN 875 MG TAB PO SCH (20:33)
--- NOTE | 2017-01-15 21:34 | IPN ---
DATE: 01/15/2017 SUBJECTIVE: The patient is seen and examined in the room today. The patient stated that he has been having worsening lower extremity infection in the last few days; however, he does not remember how he got those infections. The patient continues to show some sign of fluid overload. The patient stated that he has been taking his medication on a regular basis and he denies any medical noncompliance. OBJECTIVE: VITAL SIGNS: Temperature 99, pulse 82, respirations 18, blood pressure 108/71, pulse oximetry 95% on room air. GENERAL: No sign of acute distress. Alert and oriented times three. HEENT: Normocephalic, atraumatic. Extraocular motors are grossly intact. CARDIOVASCULAR: Diminished heart sounds. Positive S1, S2. Regular rate. LUNGS: Diminished breath sounds. No wheezes. Positive bilateral crackles. ABDOMEN: Soft, nontender, nondistended. Bowel sounds present. EXTREMITIES: 2+ pitting edema bilaterally. Multiple skin lesions, mainly in the posterior lower extremities below the knee. There is some redness and tenderness and swelling near the lesions and there is a foul smell from the lesions too. LABORATORY DATA: WBC is 6.3, hemoglobin 12.3, hematocrit 39, platelet count is 298. Sodium is 140, potassium 3.6, chloride 103, carbon dioxide 29, BUN 17, creatinine 0.76. GFR greater than 60, fasting glucose 93, calcium is 8.5, magnesium 1.9, total bilirubin 1.6, AST 27, ALT 40, alkaline phosphatase 337, C-reactive protein is 3.66, total protein is 6.2, albumin 2.6. ASSESSMENT AND PLAN: 1. Bilateral lower extremity cellulitis. Culture was performed previously and showed multi organism infections. Most recent wound culture was performed on 01/14/2017. Those sensitivities are reviewed. The patient is currently on Levaquin and Augmentin. New wound culture is also obtained. Continue to follow the results. The patient had lower extremity Dopplers and results show negative for deep vein thrombosis (DVT). 2. 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 The patient had an echocardiogram performed on September 2016 that showed ejection fraction of 10 to 15% with diastolic heart failure. Currently, the patient does show signs of fluid overload. The patient is currently on Lasix 40 mg IV every 8 hours. We will follow with a new cardiac echocardiogram. 3. History of nonsustained ventricular tachycardia. The patient is monitored on the progressive care unit (PCU) with cardiac telemetry. The patient continues to wear Life Vest. 4. Tobacco abuse. The patient is on Nicorette as needed. 5. Hypertension. Continue to monitor. The patient is currently on Lisinopril, Lasix and metoprolol. 6. Deep vein thrombosis (DVT) prophylaxis. On heparin.
[2017-01-16] MEDS: FUROSEMIDE 40 MG/4 ML VIAL (J1940) IV SCH ×3 (00:09→17:01)
[2017-01-16 04:00] VITALS: BP 106/76
[2017-01-16 05:33] LABS: BASO % 0.7 % (0.0-1.0); EOS % 0.5 % (0.0-3.0); IMMATURE GRANULOCYTE % 0.3 % (0-0); LYMPH # 0.9 10^3/uL (1.5-4.5); LYMPH % 15.9 % (24.0-44.0); MEAN CORPUSCULAR VOLUME 78.3 fl (80.0-96.0); MONO # 0.8 10^3/uL (0.0-0.8); NEUTROPHILS % 69.6 % (36.0-66.0); PLATELET COUNT, AUTOMATED 302 10^3/uL (150-450); RED CELL DISTRIBUTION WIDTH 18.6 % (11.5-14.5); WHITE BLOOD COUNT 5.8 10^3/uL (4.0-10.0)
[2017-01-16 05:53] LABS: ALBUMIN 2.7 GM/DL (3.2-5.2); ALBUMIN/GLOBULIN RATIO 0.75 (1.00-1.93); ALKALINE PHOSPHATASE 326 U/L (45-117); ALT/SGPT 34 U/L (12-78); ANION GAP 7 MEQ/L (8-16); AST/SGOT 24 U/L (7-37); BILIRUBIN,TOTAL 1.6 MG/DL (0.2-1.0); BLOOD UREA NITROGEN 13 MG/DL (7-18); CARBON DIOXIDE LEVEL 33 MEQ/L (21-32); CHLORIDE LEVEL 100 MEQ/L (98-107); CREATININE FOR GFR 0.78 MG/DL (0.70-1.30); GLOMERULAR FILTRATION RATE > 60.0 (>60); GLUCOSE, FASTING 86 MG/DL (70-105); POTASSIUM SERUM 3.5 MEQ/L (3.5-5.1); SODIUM LEVEL 140 MEQ/L (136-145); TOTAL PROTEIN 6.3 GM/DL (6.4-8.2)
[2017-01-16] MEDS ORDERED: SLF 3 ML SYR IV PRN (07:15)
[2017-01-16 08:00] VITALS: BP 109/73
--- NOTE | 2017-01-16 08:35 | ECGEPIP ---
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
[2017-01-16] MEDS: AUGMENTIN 875 MG TAB PO SCH ×2 (08:38→21:24)
[2017-01-16] MEDS: ASPIRIN ENTERIC 325 MG TAB PO SCH (08:38)
[2017-01-16] MEDS: LISINOPRIL *2.5 MG* TAB PO SCH (08:39)
[2017-01-16] MEDS: DIGOXIN 0.125 MG TAB PO SCH (08:40)
[2017-01-16] MEDS: METOPROLOL TART 25 MG TABLET PO SCH ×2 (08:40→21:25)
[2017-01-16] MEDS: SANTYL OINT 30GM TOP SCH (09:00)
[2017-01-16 12:00] VITALS: BP 100/60
[2017-01-16 16:00] VITALS: BP 112/65
--- NOTE | 2017-01-16 16:12 | IPNPDOC ---
Text Note Date of Service The patient was seen on 01/16/17. NOTE SUBJECTIVE: The patient is seen and examined in the room today. Patient states he has not noticed significant change of his lower extremity wounds. Continue having lower extremity swelling. Per staff report, patient took out the lifevest battery at night. He puts it back on in the morning. OBJECTIVE: VITAL SIGNS: Listed below. GENERAL: No sign of acute distress. Alert and oriented times three. HEENT: Normocephalic, atraumatic. Extraocular motors are grossly intact. CARDIOVASCULAR: Diminished heart sounds. Positive S1, S2. Regular rate. LUNGS: Diminished breath sounds. No wheezes. Positive bilateral crackles. ABDOMEN: Soft, nontender, nondistended. Bowel sounds present. EXTREMITIES: 2+ pitting edema bilaterally. Multiple skin lesions, mainly in the posterior lower extremities below the knee. There is some redness and tenderness and swelling near the lesions and there is a foul smell from the lesions too. LABORATORY DATA: Listed below. ASSESSMENT AND PLAN: 1. Bilateral lower extremity cellulitis. Culture was performed previously and showed multi organism infections. Most recent wound culture was performed on 01/14/2017. Those sensitivities are reviewed. The patient is currently on Levaquin and Augmentin. New wound culture is also obtained. Continue to follow the results. The patient had lower extremity Dopplers and results show negative for deep vein thrombosis (DVT). 2. 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 Repeated echocardiogram performed on 01/15/2017 that showed ejection fraction of 10. Currently, the patient does show signs of fluid overload. The patient is currently on Lasix 40 mg IV every 8 hours. 3. History of nonsustained ventricular tachycardia. The patient is monitored on the progressive care unit (PCU) with cardiac telemetry. The patient continues to wear Life Vest. However, there is incidence where patient will take out the LifeVest battery. 4. Tobacco abuse. The patient is on Nicorette as needed. 5. Hypertension. Continue to monitor. The patient is currently on Lisinopril, Lasix and metoprolol. 6. Deep vein thrombosis (DVT) prophylaxis. On heparin. VS,Fishbone, I+O VS, Fishbone, I+O Laboratory Tests 01/16/17 05:14 Red Blood Count 5.03, Mean Corpuscular Volume 78.3 L, Mean Corpuscular Hemoglobin 25.0 L, Mean Corpuscular Hemoglobin Concent 32.0, Red Cell Distribution Width 18.6 H, Neutrophils (%) (Auto) 69.6 H, Lymphocytes (%) (Auto ) 15.9 L, Monocytes (%) (Auto) 13.0 H, Eosinophils (%) (Auto) 0.5, Basophils (% ) (Auto) 0.7, Neutrophils # (Auto) 4.0, Lymphocytes # (Auto) 0.9 L, Monocytes # (Auto) 0.8, Eosinophils # (Auto) 0.0, Basophils # (Auto) 0.0, Calcium Level 9.0 , Aspartate Amino Transf (AST/SGOT) 24, Alanine Aminotransferase (ALT/SGPT) 34, Alkaline Phosphatase 326 H, Total Bilirubin 1.6 H, Total Protein 6.3 L, Albumin 2.7 L Vital Signs Date Time Temp Pulse Resp B/P (MAP) Pulse Ox O2 Delivery O2 Flow Rate FiO2 01/16/17 12:00 98.1 75 20 100/60 (73) 95 01/16/17 08:15 Room Air I&O- Last 24 Hours up to 6 AM 01/17/17 06:00 Intake Total 840 ml Output Total 1200 ml Balance -360 ml LITO CASSIDY DO Jan 16, 2017 16:12
[2017-01-16] MEDS: LevoFLOXacin 500 MG TABLET PO SCH (17:01)
[2017-01-16] MEDS: SLF 3 ML SYR IV SCH ×2 (17:02→21:25)
[2017-01-16 20:00] VITALS: BP 124/66
[2017-01-16 23:59] VITALS: BP 110/72
[2017-01-17] MEDS: FUROSEMIDE 40 MG/4 ML VIAL (J1940) IV SCH ×3 (00:23→17:00)
[2017-01-17] MEDS: SLF 3 ML SYR IV SCH ×3 (03:47→21:50)
[2017-01-17 04:00] VITALS: BP 114/71
[2017-01-17 06:09] LABS: BASO # 0.1 10^3/uL (0.0-0.2); BASO % 0.9 % (0.0-1.0); EOS % 0.7 % (0.0-3.0); IMMATURE GRANULOCYTE % 0.2 % (0-0); MEAN CORPUSCULAR HEMOGLOBIN 25.1 pg (27.0-33.0); MEAN CORPUSCULAR HGB CONC 31.9 g/dl (32.0-36.5); MEAN CORPUSCULAR VOLUME 78.8 fl (80.0-96.0); MONO # 0.7 10^3/uL (0.0-0.8); MONO % 13.2 % (0.0-5.0); NEUTROPHILS # 3.6 10^3/uL (1.8-7.7); PLATELET COUNT, AUTOMATED 321 10^3/uL (150-450); RED CELL DISTRIBUTION WIDTH 18.7 % (11.5-14.5); WHITE BLOOD COUNT 5.4 10^3/uL (4.0-10.0)
[2017-01-17 06:28] LABS: ALBUMIN 2.6 GM/DL (3.2-5.2); ALBUMIN/GLOBULIN RATIO 0.68 (1.00-1.93); ALKALINE PHOSPHATASE 322 U/L (45-117); ALT/SGPT 39 U/L (12-78); ANION GAP 7 MEQ/L (8-16); AST/SGOT 31 U/L (7-37); BILIRUBIN,TOTAL 1.2 MG/DL (0.2-1.0); BLOOD UREA NITROGEN 15 MG/DL (7-18); CALCIUM LEVEL 8.8 MG/DL (8.5-10.1); CARBON DIOXIDE LEVEL 32 MEQ/L (21-32); CHLORIDE LEVEL 101 MEQ/L (98-107); GLOMERULAR FILTRATION RATE > 60.0 (>60); GLUCOSE, FASTING 83 MG/DL (70-105); MAGNESIUM LEVEL 2.2 MG/DL (1.8-2.4); POTASSIUM SERUM 3.5 MEQ/L (3.5-5.1); SODIUM LEVEL 140 MEQ/L (136-145); TOTAL PROTEIN 6.4 GM/DL (6.4-8.2)
[2017-01-17 08:00] VITALS: BP 124/66
[2017-01-17] MEDS: ASPIRIN ENTERIC 325 MG TAB PO SCH (08:58)
[2017-01-17] MEDS: AUGMENTIN 875 MG TAB PO SCH (08:58)
[2017-01-17] MEDS: DIGOXIN 0.125 MG TAB PO SCH (08:59)
[2017-01-17] MEDS: LISINOPRIL *2.5 MG* TAB PO SCH (08:59)
[2017-01-17] MEDS: METOPROLOL TART 25 MG TABLET PO SCH ×2 (08:59→20:46)
[2017-01-17] MEDS: SANTYL OINT 30GM TOP SCH (09:00)
[2017-01-17 12:00] VITALS: BP 122/77
[2017-01-17 16:00] VITALS: BP 121/76
--- NOTE | 2017-01-17 16:47 | IPNPDOC ---
Text Note Date of Service The patient was seen on 01/17/17. NOTE SUBJECTIVE: The patient is seen and examined in the room today. Patient states his wound infection is improving. His lower extremity swelling is also improving. . OBJECTIVE: VITAL SIGNS: Listed below. GENERAL: No sign of acute distress. Alert and oriented times three. HEENT: Normocephalic, atraumatic. Extraocular motors are grossly intact. CARDIOVASCULAR: Diminished heart sounds. Positive S1, S2. Regular rate. LUNGS: Diminished breath sounds. No wheezes. Positive bilateral crackles. ABDOMEN: Soft, nontender, nondistended. Bowel sounds present. EXTREMITIES: 2+ pitting edema bilaterally. Multiple skin lesions, mainly in the posterior lower extremities below the knee. There is some redness and tenderness and swelling near the lesions and there is a foul smell from the lesions too. LABORATORY DATA: Listed below. ASSESSMENT AND PLAN: 1. Bilateral lower extremity cellulitis. Both wound culture came back. Positive for Enterobacter, Staph aureus, and E Faecalis. Antibiotic regimen will be levaquin and doxycycline based on sensitivity. 2. 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 Repeated echocardiogram performed on 01/15/2017 that showed ejection fraction of 10. Currently, the patient does show signs of fluid overload but swelling is improving. Patient has lost 10L net negative since admission. The patient is currently on Lasix 40 mg IV every 8 hours. 3. History of nonsustained ventricular tachycardia. The patient is monitored on the progressive care unit (PCU) with cardiac telemetry. The patient continues to wear Life Vest. However, there is incidence where patient will take out the LifeVest battery. 4. Tobacco abuse. The patient is on Nicorette as needed. 5. Hypertension. Continue to monitor. The patient is currently on Lisinopril, Lasix and metoprolol. 6. Deep vein thrombosis (DVT) prophylaxis. On heparin. VS,Fishbone, I+O VS, Fishbone, I+O Laboratory Tests 01/17/17 05:39 Red Blood Count 5.05, Mean Corpuscular Volume 78.8 L, Mean Corpuscular Hemoglobin 25.1 L, Mean Corpuscular Hemoglobin Concent 31.9 L, Red Cell Distribution Width 18.7 H, Neutrophils (%) (Auto) 67.0 H, Lymphocytes (%) (Auto ) 18.0 L, Monocytes (%) (Auto) 13.2 H, Eosinophils (%) (Auto) 0.7, Basophils (% ) (Auto) 0.9, Neutrophils # (Auto) 3.6, Lymphocytes # (Auto) 1.0 L, Monocytes # (Auto) 0.7, Eosinophils # (Auto) 0.0, Basophils # (Auto) 0.1, Calcium Level 8.8 , Aspartate Amino Transf (AST/SGOT) 31, Alanine Aminotransferase (ALT/SGPT) 39, Alkaline Phosphatase 322 H, Total Bilirubin 1.2 H, Total Protein 6.4, Albumin 2.6 L Vital Signs Date Time Temp Pulse Resp B/P (MAP) Pulse Ox O2 Delivery O2 Flow Rate FiO2 01/17/17 12:21 Room Air 01/17/17 12:00 97.7 77 16 122/77 (03) 92 I&O- Last 24 Hours up to 6 AM 01/18/17 06:00 Intake Total 840 ml Output Total 1600 ml Balance -760 ml LITO CASSIDY DO Jan 17, 2017 16:47
[2017-01-17] MEDS: LevoFLOXacin 500 MG TABLET PO SCH (17:00)
[2017-01-17 20:43] VITALS: BP 126/68
[2017-01-17] MEDS: DOXYCYCLINE HYCLATE 100 MG TAB PO SCH (20:47)
[2017-01-17] MEDS ORDERED: BACTRIM 160MG/800MG DS TAB PO SCH (21:00)
[2017-01-18 00:22] VITALS: BP 107/62
[2017-01-18] MEDS: FUROSEMIDE 40 MG/4 ML VIAL (J1940) IV SCH ×3 (01:23→09:07)
[2017-01-18 04:10] VITALS: BP 100/62
[2017-01-18 05:52] LABS: BASO # 0.1 10^3/uL (0.0-0.2); BASO % 1.3 % (0.0-1.0); EOS # 0.1 10^3/uL (0.0-0.50); IMMATURE GRANULOCYTE % 0.4 % (0-0); LYMPH % 19.2 % (24.0-44.0); MEAN CORPUSCULAR HEMOGLOBIN 24.4 pg (27.0-33.0); MEAN CORPUSCULAR HGB CONC 31.1 g/dl (32.0-36.5); MEAN CORPUSCULAR VOLUME 78.6 fl (80.0-96.0); MONO # 0.6 10^3/uL (0.0-0.8); MONO % 11.5 % (0.0-5.0); NEUTROPHILS # 3.5 10^3/uL (1.8-7.7); NEUTROPHILS % 66.6 % (36.0-66.0); PLATELET COUNT, AUTOMATED 312 10^3/uL (150-450); RED CELL DISTRIBUTION WIDTH 19.1 % (11.5-14.5); WHITE BLOOD COUNT 5.2 10^3/uL (4.0-10.0)
[2017-01-18] MEDS: SLF 3 ML SYR IV SCH (06:00)
[2017-01-18 06:12] LABS: ALBUMIN 2.6 GM/DL (3.2-5.2); ALBUMIN/GLOBULIN RATIO 0.65 (1.00-1.93); ALKALINE PHOSPHATASE 331 U/L (45-117); ALT/SGPT 46 U/L (12-78); ANION GAP 7 MEQ/L (8-16); AST/SGOT 43 U/L (7-37); BILIRUBIN,TOTAL 1.1 MG/DL (0.2-1.0); BLOOD UREA NITROGEN 14 MG/DL (7-18); CALCIUM LEVEL 8.6 MG/DL (8.5-10.1); CARBON DIOXIDE LEVEL 32 MEQ/L (21-32); CHLORIDE LEVEL 101 MEQ/L (98-107); CREATININE FOR GFR 1.01 MG/DL (0.70-1.30); GLOMERULAR FILTRATION RATE > 60.0 (>60); GLUCOSE, FASTING 96 MG/DL (70-105); POTASSIUM SERUM 3.9 MEQ/L (3.5-5.1); SODIUM LEVEL 140 MEQ/L (136-145); TOTAL PROTEIN 6.6 GM/DL (6.4-8.2)
[2017-01-18 08:00] VITALS: BP 132/85
[2017-01-18] MEDS ORDERED: LEVA1TAB2 PO (08:36)
[2017-01-18] MEDS ORDERED: DOXY100T PO (08:36)
[2017-01-18] MEDS ORDERED: OPTI6PAD XX (08:40)
[2017-01-18] MEDS: SANTYL OINT 30GM TOP SCH (09:00)
[2017-01-18] MEDS: LISINOPRIL *2.5 MG* TAB PO SCH (09:08)
[2017-01-18] MEDS: DOXYCYCLINE HYCLATE 100 MG TAB PO SCH (09:08)
[2017-01-18] MEDS: ASPIRIN ENTERIC 325 MG TAB PO SCH (09:08)
[2017-01-18] MEDS: DIGOXIN 0.125 MG TAB PO SCH (09:08)
[2017-01-18 09:09] VITALS: BP 132/85
[2017-01-18] MEDS: METOPROLOL TART 25 MG TABLET PO SCH (09:09)
[2017-01-18] MEDS ORDERED: FUROSEMIDE 80 MG TAB PO ONE (09:30)
--- NOTE | 2017-01-26 06:30 | DSES ---
DATE OF ADMISSION: 01/14/2017 DATE OF DISCHARGE: 01/18/2017 PRIMARY CARE PROVIDER: Teddy Carpenter. CONSULTANTS: None. PROCEDURES: None. DISCHARGE DIAGNOSES: 1. Bilateral lower extremity cellulitis. 2. Acute on chronic systolic and diastolic congestive heart failure. 3. History of nonsustained ventricular tachycardia. 4. Tobacco abuse. 5. Hypertension. HOSPITAL COURSE: The patient is a 46-year-old male who presented to [facility] on January 14, 2017 with the complaint of shortness of breath. The patient was found to have acute on chronic systolic and diastolic congestive heart failure exacerbation. The patient was started on intravenous (IV) diuretics. There was significant lower extremity cellulitis and the patient does have multi organism infection in the past. The patient was started on broad-spectrum antibiotics after wound culture was obtained with a diuretic. The patient had improvement of respiratory status. The patient's wound has also been cleaned topically with cleaning solution and also antibiotics and showed gradual improvements. Later the results came back and the patient's antibiotics were also adjusted according to the sensitivities. On January 18, 2017 the patient is determined stable for discharge with the recommendation of treatment course of antibiotics for his cellulitis. The patient is instructed to follow the fluid instructions strictly. The patient is strongly recommended to follow his diuretic regimen as instructed. OBJECTIVE: Vital signs: Temperature 98.1, pulse 70, respirations 18, blood pressure 132/85, pulse oximetry 98% on room air. LABORATORY DATA ON DISCHARGE: WBC 5.2, hemoglobin 12.9, hematocrit 41.5, platelet count 312. Sodium 140, potassium 3.9, chloride 101, carbon dioxide 32. BUN 14, creatinine 1.0, GFR greater than 60, fasting glucose 96, calcium 8.6, magnesium 2. Total bilirubin 1.1, AST 43, ALT 46, alkaline phosphatase 331. C-reactive protein 2.28, total protein 6.6, albumin 2.6. MICROBIOLOGY: Blood cultures from January 14, 2017 is negative after five days and two sets. Left lower extremity wound culture from January 14, 2017 shows positive Staphylococcus Aureus and Enterobacter Cloacae complex. Wound culture from the calf was positive for Enterobacter Cloacae complex and Staphylococcus Aureus and Enterococcus Faecalis. Right lower extremity Doppler from December shows no evidence of deep venous thrombosis (DVT) in the femoropopliteal venous system. Bilateral inguinal lymphadenopathy. Chest x-ray from January 14, 2017 shows stable cardiomegaly and interstitial changes. DISCHARGE INSTRUCTIONS: Discharge home. Activities as tolerated. Continue wound care as instructed. The patient should finish six more days or oral antibiotics. The patient is recommended to follow with his primary care provider at scheduled time. The patient is highly recommended to follow the fluid restrictions strictly. The patient should contact his primary care provider if there is significant weight gain. DISCHARGE MEDICATIONS: - doxycycline 100 mg by mouth twice a day - Levaquin 500 mg by mouth daily - aspirin 325 mg by mouth daily - digoxin 125 mcg by mouth daily - Lasix 80 mg by mouth daily - Lasix 40 mg by mouth nightly - lisinopril 2.5 mg by mouth daily - metoprolol tartrate 25 mg by mouth twice a day DISCHARGE CONDITION: Fair. Discharge time: Greater than 30 minutes.
== END 2017-01-18 10:55 | disposition home or self-care (01) | DRG 383 ==
LOC: M ED 15:13 → EDBD 15:13 → M ED INP 18:34 → M PCU 20:00
PROVIDERS: ADMIT Hospitalist; ATTEND Internal Medicine
DX: L03.115 Cellulitis of right lower limb (principal); I47.2 Ventricular tachycardia; I50.33 Acute on chronic diastolic (congestive) heart failure; I11.0 Hypertensive heart disease with heart failure; I42.0 Dilated cardiomyopathy; F17.200 Nicotine dependence, unspecified, uncomplicated; Z79.82 Long term (current) use of aspirin; Z79.899 Other long term (current) drug therapy; F10.10 Alcohol abuse, uncomplicated; Z88.8 Allergy status to other drugs, medicaments and biological substances; L03.116 Cellulitis of left lower limb

== ENCOUNTER → 2017-02-24 | Outpatient (CLI) | payer OTHER ==
[2017-02-24 18:34] LABS: ANION GAP 11 MEQ/L (8-16); BLOOD UREA NITROGEN 30 MG/DL (7-18); CALCIUM LEVEL 8.9 MG/DL (8.5-10.1); CARBON DIOXIDE LEVEL 32 MEQ/L (21-32); CHLORIDE LEVEL 93 MEQ/L (98-107); CREATININE FOR GFR 1.07 MG/DL (0.70-1.30); GLOMERULAR FILTRATION RATE > 60.0 (>60); GLUCOSE, FASTING 93 MG/DL (70-105); POTASSIUM SERUM 3.6 MEQ/L (3.5-5.1); SODIUM LEVEL 136 MEQ/L (136-145)
== END ==
LOC: M SMT 13:50
DX: I50.9 Heart failure, unspecified (principal); R06.02 Shortness of breath; I42.9 Cardiomyopathy, unspecified
CPT/HCPCS: 80048

== ENCOUNTER → 2017-04-19 | Outpatient (CLI) | payer OTHER ==
[2017-04-19 14:39] LABS: BASO # 0.1 10^3/uL (0.0-0.2); EOS # 0.3 10^3/uL (0.0-0.50); EOS % 4.8 % (0.0-3.0); HEMATOCRIT 44.3 % (42.0-52.0); IMMATURE GRANULOCYTE % 0.2 % (0-3.0); LYMPH # 1.1 10^3/uL (1.5-4.5); LYMPH % 21.6 % (24.0-44.0); MEAN CORPUSCULAR HEMOGLOBIN 26.4 pg (27.0-33.0); MEAN CORPUSCULAR HGB CONC 31.6 g/dl (32.0-36.5); MEAN CORPUSCULAR VOLUME 83.4 fl (80.0-96.0); MONO # 0.5 10^3/uL (0.0-0.8); MONO % 8.9 % (0.0-5.0); NEUTROPHILS # 3.3 10^3/uL (1.8-7.7); NEUTROPHILS % 63.5 % (36.0-66.0); PLATELET COUNT, AUTOMATED 211 10^3/uL (150-450); RED BLOOD COUNT 5.31 10^6/uL (4.30-6.10); RED CELL DISTRIBUTION WIDTH 18.8 % (11.5-14.5); WHITE BLOOD COUNT 5.2 10^3/uL (4.0-10.0)
[2017-04-19 15:27] LABS: ANION GAP 5 MEQ/L (8-16); BLOOD UREA NITROGEN 16 MG/DL (7-18); CALCIUM LEVEL 9.2 MG/DL (8.5-10.1); CARBON DIOXIDE LEVEL 32 MEQ/L (21-32); CHLORIDE LEVEL 104 MEQ/L (98-107); CREATININE FOR GFR 1.06 MG/DL (0.70-1.30); GLOMERULAR FILTRATION RATE > 60.0 (>60); GLUCOSE, FASTING 79 MG/DL (70-100); SODIUM LEVEL 141 MEQ/L (136-145)
== END ==
LOC: M LAB 13:59
DX: I42.0 Dilated cardiomyopathy (principal)
CPT/HCPCS: 80048

== ENCOUNTER 2017-05-03 16:56 | Emergency (ER) | payer OTHER ==
[2017-05-03 18:13] LABS: BASO # 0.1 10^3/uL (0.0-0.2); BASO % 0.5 % (0.0-1.0); EOS # 0.1 10^3/uL (0.0-0.50); EOS % 1.1 % (0.0-3.0); HEMATOCRIT 45.7 % (42.0-52.0); IMMATURE GRANULOCYTE % 0.3 % (0-3.0); LYMPH # 1.3 10^3/uL (1.5-4.5); LYMPH % 13.8 % (24.0-44.0); MEAN CORPUSCULAR HEMOGLOBIN 27.5 pg (27.0-33.0); MEAN CORPUSCULAR HGB CONC 32.8 g/dl (32.0-36.5); MEAN CORPUSCULAR VOLUME 83.9 fl (80.0-96.0); MONO # 0.6 10^3/uL (0.0-0.8); MONO % 6.6 % (0.0-5.0); NEUTROPHILS # 7.3 10^3/uL (1.8-7.7); NEUTROPHILS % 77.7 % (36.0-66.0); PLATELET COUNT, AUTOMATED 235 10^3/uL (150-450); RED BLOOD COUNT 5.45 10^6/uL (4.30-6.10); WHITE BLOOD COUNT 9.4 10^3/uL (4.0-10.0)
[2017-05-03 18:28] LABS: MAGNESIUM LEVEL 2.1 MG/DL (1.8-2.4)
[2017-05-03 18:38] LABS: ALBUMIN 3.9 GM/DL (3.2-5.2); ALBUMIN/GLOBULIN RATIO 1.18 (1.00-1.93); ALKALINE PHOSPHATASE 198 U/L (45-117); ALT/SGPT 42 U/L (12-78); ANION GAP 8 MEQ/L (8-16); AST/SGOT 40 U/L (7-37); BILIRUBIN,DIRECT 0.3 MG/DL (0.0-0.2); BILIRUBIN,TOTAL 1.1 MG/DL (0.2-1.0); BLOOD UREA NITROGEN 15 MG/DL (7-18); CALCIUM LEVEL 8.9 MG/DL (8.5-10.1); CARBON DIOXIDE LEVEL 30 MEQ/L (21-32); CHLORIDE LEVEL 102 MEQ/L (98-107); CPK CREATINE PHOSPHOKINASE 106 U/L (39-308); CREATININE FOR GFR 0.92 MG/DL (0.70-1.30); GLOMERULAR FILTRATION RATE > 60.0 (>60); GLUCOSE, FASTING 108 MG/DL (70-100); POTASSIUM SERUM 3.3 MEQ/L (3.5-5.1); SODIUM LEVEL 140 MEQ/L (136-145); TOTAL PROTEIN 7.2 GM/DL (6.4-8.2); TROPONIN I 0.04 NG/ML (< 0.10)
[2017-05-03 18:44] LABS: MB/CK RELATIVE INDEX 0.94 (< OR =4)
[2017-05-03] MEDS: POTASSIUM CHLORIDE 10 MEQ SR TABLET PO (19:50)
== END 2017-05-03 20:03 | disposition home or self-care (01) ==
LOC: M ED 16:56
DX: Z45.89 Encounter for adjustment and management of other implanted devices (principal); T82.118A Breakdown (mechanical) of other cardiac electronic device, initial encounter; I50.9 Heart failure, unspecified; I42.0 Dilated cardiomyopathy; Z79.899 Other long term (current) drug therapy; Z79.82 Long term (current) use of aspirin; Z88.8 Allergy status to other drugs, medicaments and biological substances; F17.210 Nicotine dependence, cigarettes, uncomplicated
CPT/HCPCS: 71046

== ENCOUNTER → 2017-09-06 | Outpatient (CLI) | payer OTHER ==
[2017-09-06 11:31] LABS: ANION GAP 8 MEQ/L (8-16); BLOOD UREA NITROGEN 20 MG/DL (7-18); CALCIUM LEVEL 8.6 MG/DL (8.5-10.1); CARBON DIOXIDE LEVEL 29 MEQ/L (21-32); CHLORIDE LEVEL 108 MEQ/L (98-107); CREATININE FOR GFR 1.26 MG/DL (0.70-1.30); GLOMERULAR FILTRATION RATE > 60.0 (>60); GLUCOSE, FASTING 108 MG/DL (70-100); POTASSIUM SERUM 3.7 MEQ/L (3.5-5.1); SODIUM LEVEL 145 MEQ/L (136-145)
== END ==
LOC: M LAB 10:42
DX: E87.6 Hypokalemia (principal)
CPT/HCPCS: 80048

== ENCOUNTER 2017-11-28 17:21 | Emergency (ER) | payer OTHER ==
[2017-11-28 16:52] LABS: BASO # 0.1 10^3/uL (0.0-0.2); BASO % 0.8 % (0.0-1.0); EOS # 0.1 10^3/uL (0.0-0.50); EOS % 0.8 % (0.0-3.0); HEMATOCRIT 43.9 % (42.0-52.0); HEMOGLOBIN 14.4 g/dl (13.5-17.5); IMMATURE GRANULOCYTE % 0.3 % (0-3.0); LYMPH # 1.2 10^3/uL (1.5-4.5); LYMPH % 20.2 % (24.0-44.0); MEAN CORPUSCULAR HEMOGLOBIN 30.9 pg (27.0-33.0); MEAN CORPUSCULAR HGB CONC 32.8 g/dl (32.0-36.5); MEAN CORPUSCULAR VOLUME 94.2 fl (80.0-96.0); MONO # 0.5 10^3/uL (0.0-0.8); MONO % 7.9 % (0.0-5.0); NEUTROPHILS # 4.2 10^3/uL (1.8-7.7); PLATELET COUNT, AUTOMATED 274 10^3/uL (150-450); RED BLOOD COUNT 4.66 10^6/uL (4.30-6.10); WHITE BLOOD COUNT 6.1 10^3/uL (4.0-10.0)
[2017-11-28 17:18] LABS: ANION GAP 9 MEQ/L (8-16); BLOOD UREA NITROGEN 11 MG/DL (7-18); CALCIUM LEVEL 8.4 MG/DL (8.5-10.1); CARBON DIOXIDE LEVEL 24 MEQ/L (21-32); CHLORIDE LEVEL 110 MEQ/L (98-107); CPK CREATINE PHOSPHOKINASE 78 U/L (39-308); CREATININE FOR GFR 1.14 MG/DL (0.70-1.30); GLOMERULAR FILTRATION RATE > 60.0 (>60); GLUCOSE, FASTING 102 MG/DL (70-100); MB/CK RELATIVE INDEX 1.54 (< OR =4); NT-PRO BNP 4749 PG/ML (<125); POTASSIUM SERUM 3.8 MEQ/L (3.5-5.1); SODIUM LEVEL 143 MEQ/L (136-145); TROPONIN I < 0.02 NG/ML (< 0.10)
[2017-11-28] MEDS: FUROSEMIDE 40 MG/4 ML VIAL (J1940) IV (19:47)
[2017-11-28] MEDS ORDERED: FUROSEMIDE 40 MG/4 ML VIAL (J1940) IV (20:00)
== END 2017-11-28 20:12 | disposition home or self-care (01) ==
LOC: M ED 17:21
DX: I50.9 Heart failure, unspecified (principal); R94.31 Abnormal electrocardiogram [ECG] [EKG]; Z72.0 Tobacco use; Z82.49 Family history of ischemic heart disease and other diseases of the circulatory system; Z79.82 Long term (current) use of aspirin; Z79.899 Other long term (current) drug therapy; Z88.8 Allergy status to other drugs, medicaments and biological substances
CPT/HCPCS: J1940

== ENCOUNTER 2018-01-17 00:41 | Emergency (ER) | payer OTHER ==
[2018-01-17] MEDS: FUROSEMIDE 100 MG/10 ML VIAL (J1940) IV (01:00)
[2018-01-17 01:34] LABS: BASO # 0.1 10^3/uL (0.0-0.2); BASO % 1.3 % (0.0-1.0); EOS # 0.1 10^3/uL (0.0-0.50); EOS % 1.3 % (0.0-3.0); HEMATOCRIT 43.2 % (42.0-52.0); HEMOGLOBIN 14.1 g/dl (13.5-17.5); IMMATURE GRANULOCYTE % 0.2 % (0-3.0); LYMPH # 1.3 10^3/uL (1.5-4.5); LYMPH % 24.2 % (24.0-44.0); MEAN CORPUSCULAR HEMOGLOBIN 29.3 pg (27.0-33.0); MEAN CORPUSCULAR HGB CONC 32.6 g/dl (32.0-36.5); MEAN CORPUSCULAR VOLUME 89.8 fl (80.0-96.0); MONO # 0.6 10^3/uL (0.0-0.8); MONO % 10.5 % (0.0-5.0); NEUTROPHILS # 3.4 10^3/uL (1.8-7.7); NEUTROPHILS % 62.5 % (36.0-66.0); PLATELET COUNT, AUTOMATED 259 10^3/uL (150-450); RED BLOOD COUNT 4.81 10^6/uL (4.30-6.10); RED CELL DISTRIBUTION WIDTH 14.5 % (11.5-14.5); WHITE BLOOD COUNT 5.4 10^3/uL (4.0-10.0)
[2018-01-17 02:15] LABS: ANION GAP 2 MEQ/L (8-16); BLOOD UREA NITROGEN 23 MG/DL (7-18); CALCIUM LEVEL 7.1 MG/DL (8.5-10.1); CARBON DIOXIDE LEVEL 25 MEQ/L (21-32); CHLORIDE LEVEL 103 MEQ/L (98-107); CREATININE FOR GFR 0.86 MG/DL (0.70-1.30); GLOMERULAR FILTRATION RATE > 60.0 (>60); GLUCOSE, FASTING 102 MG/DL (70-100); NT-PRO BNP 8633 PG/ML (<125); SODIUM LEVEL 130 MEQ/L (136-145)
== END 2018-01-17 04:47 | disposition home or self-care (01) ==
LOC: M ED 00:41
DX: I50.9 Heart failure, unspecified (principal); I11.0 Hypertensive heart disease with heart failure; F17.200 Nicotine dependence, unspecified, uncomplicated; Z88.8 Allergy status to other drugs, medicaments and biological substances; Z95.0 Presence of cardiac pacemaker; Z79.899 Other long term (current) drug therapy; Z79.82 Long term (current) use of aspirin; Z79.2 Long term (current) use of antibiotics
CPT/HCPCS: J1940

== ENCOUNTER 2018-03-15 06:14 | Emergency (ER) | payer OTHER ==
[~2018-03-15] VITALS: Ht 170.2 cm; Wt 93.2 kg
[~2018-03-15 06:14] MED LIST changes: +AMOX; +ASPI-222 PO; -ASPI325T28 PO; +DOXY100T PO; +ENTR1TAB PO; +FURO80TA2 PO; -LASI40TA PO; +LASI40TA9 PO; +LASI80TA3 PO; +LEVA1TAB2 PO; -LISI2.5T3 PO; -LISI2.5T4 PO; +LISI2.5T5 PO; +LISI2.5T76 PO; +METO25TA PO; +OPTI6PAD XX; +SPIR-10 PO; -SPIR25TA2 PO; -VANCOMYCIN HCL 1,000 MG, VIAL MATE ADAPTER 1 EACH in D5W 250 ML IV SCH
[2018-03-15 07:11] LABS: BASO # 0.1 10^3/uL (0.0-0.2); BASO % 1.2 % (0.0-1.0); EOS # 0.1 10^3/uL (0.0-0.50); EOS % 1.2 % (0.0-3.0); HEMATOCRIT 38.8 % (42.0-52.0); HEMOGLOBIN 12.5 g/dl (13.5-17.5); MEAN CORPUSCULAR HEMOGLOBIN 25.4 pg (27.0-33.0); MEAN CORPUSCULAR HGB CONC 32.2 g/dl (32.0-36.5); MEAN CORPUSCULAR VOLUME 78.9 fl (80.0-96.0); MONO # 0.4 10^3/uL (0.0-0.8); MONO % 10.6 % (0.0-5.0); NEUTROPHILS # 2.6 10^3/uL (1.8-7.7); NEUTROPHILS % 62.8 % (36.0-66.0); PLATELET COUNT, AUTOMATED 237 10^3/uL (150-450); RED BLOOD COUNT 4.92 10^6/uL (4.30-6.10); WHITE BLOOD COUNT 4.2 10^3/uL (4.0-10.0)
--- NOTE | 2018-03-15 07:13 | REP ---
Clinical: Acute chest pain. Technique: PA and lateral. Comparison: 01/17/2018. Findings: Marked cardiomegaly is again appreciated along with pacemaker in stable position. Lung campbell demonstrate chronic stable changes including ovoid calcified density overlying the periphery of the right mid lung zone. No acute consolidation, effusion, or pneumothorax. Skeletal structures are intact. Impression: Cardiomegaly similar to prior examination. Chronic stable interstitial changes. No acute cardiopulmonary process appreciated. Electronically Signed by Tye Stratton MD 03/15/2018 07:05 A
[2018-03-15 07:40] LABS: ALBUMIN 3.1 GM/DL (3.2-5.2); ALT/SGPT 24 U/L (12-78); BILIRUBIN,DIRECT 1.2 MG/DL (0.0-0.2); BILIRUBIN,TOTAL 2.5 MG/DL (0.2-1.0); BLOOD UREA NITROGEN 20 MG/DL (7-18); CALCIUM LEVEL 8.1 MG/DL (8.5-10.1); CARBON DIOXIDE LEVEL 26 MEQ/L (21-32); CHLORIDE LEVEL 101 MEQ/L (98-107); CPK CREATINE PHOSPHOKINASE 76 U/L (39-308); CREATININE FOR GFR 1.25 MG/DL (0.70-1.30); GLOMERULAR FILTRATION RATE > 60.0 (>60); GLUCOSE, FASTING 103 MG/DL (70-100); MB/CK RELATIVE INDEX 1.71 (< OR =4); NT-PRO BNP 4106 PG/ML (<125); POTASSIUM SERUM 3.6 MEQ/L (3.5-5.1); SODIUM LEVEL 138 MEQ/L (136-145); TOTAL PROTEIN 5.9 GM/DL (6.4-8.2); TROPONIN I 0.03 NG/ML (< 0.10)
[2018-03-15] MEDS ORDERED: POTASSIUM CHLORIDE 10 MEQ SR TABLET PO ONE (08:45)
[2018-03-15] MEDS ORDERED: FUROSEMIDE 40 MG/4 ML VIAL (J1940) IV ONE (08:45)
[2018-03-15 10:01] VITALS: BP 116/76
--- NOTE | 2018-03-16 10:33 | ECGEPIP ---
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
== END 2018-03-15 10:19 | disposition home or self-care (01) ==
LOC: M ED 06:14
DX: I50.1 Left ventricular failure, unspecified (principal); I50.810 Right heart failure, unspecified; I11.0 Hypertensive heart disease with heart failure; I25.10 Atherosclerotic heart disease of native coronary artery without angina pectoris; I42.0 Dilated cardiomyopathy; Z95.0 Presence of cardiac pacemaker; Z79.899 Other long term (current) drug therapy; Z79.82 Long term (current) use of aspirin; Z88.8 Allergy status to other drugs, medicaments and biological substances; F17.210 Nicotine dependence, cigarettes, uncomplicated
CPT/HCPCS: 71046; 80048; 80076; 82550; 82553; 83880; 85025; 85379; 93005; 93041; 96374; 99285; J1940

== ENCOUNTER 2018-03-29 06:10 | Inpatient (IN) | payer OTHER ==
[~2018-03-29] VITALS: Ht 170.2 cm; Wt 85.1 kg
[2018-03-29] MEDS ORDERED: FUROSEMIDE 100 MG/10 ML VIAL (J1940) IV ONE (07:30)
--- NOTE | 2018-03-29 07:41 | REP ---
Clinical: Cough and dyspnea. Comparison: 03/15/2018. Findings: Stable cardiomegaly. Lung campbell are relatively clear although mildly increased interstitial markings cannot be excluded which may reflect a bronchitis or possibly mild interstitial edema. No focal consolidation, effusion, or pneumothorax. Skeletal structures intact. Impression: Limited by portable technique. Cannot exclude the possibility of bronchitis and/or mild interstitial edema. Electronically Signed by Tye Stratton MD 03/29/2018 07:33 A
[2018-03-29 08:08] LABS: BASO % 0.5 % (0.0-1.0); HEMATOCRIT 39.6 % (42.0-52.0); HEMOGLOBIN 12.3 g/dl (13.5-17.5); LYMPH # 0.3 10^3/uL (1.5-4.5); LYMPH % 5.4 % (24.0-44.0); MEAN CORPUSCULAR HEMOGLOBIN 24.6 pg (27.0-33.0); MEAN CORPUSCULAR HGB CONC 31.1 g/dl (32.0-36.5); MONO # 0.6 10^3/uL (0.0-0.8); NEUTROPHILS # 5.2 10^3/uL (1.8-7.7); NEUTROPHILS % 84.6 % (36.0-66.0); PLATELET COUNT, AUTOMATED 227 10^3/uL (150-450); RED BLOOD COUNT 5.01 10^6/uL (4.30-6.10); WHITE BLOOD COUNT 6.1 10^3/uL (4.0-10.0)
[2018-03-29] MEDS ORDERED: SPIR-10 PO (08:08)
[2018-03-29 08:13] LABS: ALBUMIN 3.2 GM/DL (3.2-5.2); BILIRUBIN,DIRECT 1.6 MG/DL (0.0-0.2); INFLUENZA A AMPLIFICATION POSITIVE (NEGATIVE); INFLUENZA B AMPLIFICATION NEGATIVE (NEGATIVE); TOTAL PROTEIN 6.4 GM/DL (6.4-8.2)
[2018-03-29 08:15] LABS: BLOOD UREA NITROGEN 27 MG/DL (7-18); CALCIUM LEVEL 8.1 MG/DL (8.5-10.1); CARBON DIOXIDE LEVEL 25 MEQ/L (21-32); CHLORIDE LEVEL 103 MEQ/L (98-107); CK-MB VALUE MASS < 1.0 NG/ML (<3.6); CPK CREATINE PHOSPHOKINASE 118 U/L (39-308); CREATININE FOR GFR 1.72 MG/DL (0.70-1.30); GLOMERULAR FILTRATION RATE 45.2 (>60); GLUCOSE, FASTING 131 MG/DL (70-100); MB/CK RELATIVE INDEX 0.85 (< OR =4); NT-PRO BNP 11960 PG/ML (<125); POTASSIUM SERUM 4.4 MEQ/L (3.5-5.1); SODIUM LEVEL 137 MEQ/L (136-145); TROPONIN I 0.02 NG/ML (< 0.10)
[2018-03-29] MEDS ORDERED: OSELTAMIVIR PHOSPHATE 75 MG CAP (TAMIFLU) PO ONE (08:30)
[2018-03-29] MEDS ORDERED: FURO80TA2 PO (08:35)
[2018-03-29] MEDS ORDERED: ENTR1TAB PO (08:35)
--- NOTE | 2018-03-29 10:10 | HPEPDOC ---
[facility] Medical History & Physical Date of Admission Mar 29, 2018 History and Physical CHIEF COMPLAINT: Shortness of breath HISTORY OF PRESENT ILLNESS: 47 yo male for several day history of worsening shortness of breath. Admits to non-compliance with recently prescribed medication (Aldactone). states he has a severe allergy (scrotal swelling), and they were in the process of notifying prescriber of this adverse reaction. He was found to be in CHF and tested positive for influenza A. PAST MEDICAL HISTORY: 1. CHF - severe systolic failure - EF 10% s/p AICD 2. Hx of EtOH abuse - likely dilated cardiomyopathy 3. Nicotine addiction 4. Hx of NSVT ALLERGIES: Please see below. REVIEW OF SYSTEMS: See HPI HOME MEDICATIONS: Please see below. PHYSICAL EXAMINATION: GENERAL APPEARANCE: somewhat disheveled, lying comfortably in bed, NAD HEENT: NC/AT, EOMI, nasal cannula in place CARDIOVASCULAR: +S1S2, RRR LUNGS: b/l crackles ABDOMEN: soft, NT, +BS EXTREMITIES: peripheral edema NEUROLOGICAL: no gross focal deficits PSYCHIATRIC: AAOx3 LABORATORY DATA: See below. MICROBIOLOGY: Please see below. ASSESSMENT: 47 yo male for respiratory distress secondary to decompensated CHF complicated with influenza. #CHF - IV lasix - telemetry monitoring - strict I/O's, daily weight - cardiology c/s #influenza - tamiflu #BRIA - secondary to CHF #nicotine addiction - NRT #DVT prophylaxis - heparin SC Vital Signs Vital Signs Date Time Temp Pulse Resp B/P (MAP) Pulse Ox O2 Delivery O2 Flow Rate FiO2 03/29/18 09:00 115/69 (84) 03/29/18 08:55 86 95 Nasal Cannula 2.0 03/29/18 08:03 99.8 03/29/18 06:10 22 Laboratory Data Labs 24H Laboratory Tests 2 03/29/18 07:32: Immature Granulocyte % (Auto) 0.5, White Blood Count 6.1, Red Blood Count 5.01, Hemoglobin 12.3L, Hematocrit 39.6L, Mean Corpuscular Volume 79.0L, Mean Corpuscular Hemoglobin 24.6L, Mean Corpuscular Hemoglobin Concent 31.1L, Red Cell Distribution Width 17.4H, Platelet Count 227, Neutrophils (%) (Auto) 84.6H, Lymphocytes (%) (Auto) 5.4L, Monocytes (%) (Auto) 9.0H, Eosinophils (%) (Auto) 0.0, Basophils (%) (Auto) 0.5, Neutrophils # (Auto) 5.2, Lymphocytes # (Auto) 0.3L, Monocytes # (Auto) 0.6, Eosinophils # (Auto) 0.0, Basophils # (Auto) 0.0, Nucleated Red Blood Cells % (auto) 0.0, Anion Gap 9, Glomerular Filtration Rate 45.2L, Blood Urea Nitrogen 27H, Creatinine 1.72H, Sodium Level 137, Potassium Level 4.4, Chloride Level 103, Carbon Dioxide Level 25, Calcium Level 8.1L, Total Creatine Kinase 118, Aspartate Amino Transf (AST/SGOT) 30, Alanine Aminotransferase (ALT/SGPT) 27, Alkaline Phosphatase 199H, Total Bilirubin 3.0H, Direct Bilirubin 1.6H, Creatine Kinase MB < 1.0, Creatine Kinase MB Relative Index 0.85, Troponin I 0.02, GE-Uto-A-Type Natriuretic Peptide [id number], Total Protein 6.4, Albumin 3.2, Albumin/Globulin Ratio 1.00, Influenza Type A (RT-PCR) POSITIVEH, Influenza Type B (RT-PCR) NEGATIVE CBC/BMP Laboratory Tests 03/29/18 07:32 Red Blood Count 5.01, Mean Corpuscular Volume 79.0 L, Mean Corpuscular Hemoglobin 24.6 L, Mean Corpuscular Hemoglobin Concent 31.1 L, Red Cell Distribution Width 17.4 H, Neutrophils (%) (Auto) 84.6 H, Lymphocytes (%) (Auto) 5.4 L, Monocytes (%) (Auto) 9.0 H, Eosinophils (%) (Auto) 0.0, Basophils (%) (Auto) 0.5, Neutrophils # (Auto) 5.2, Lymphocytes # (Auto) 0.3 L, Monocytes # (Auto) 0.6, Eosinophils # (Auto) 0.0, Basophils # (Auto) 0.0, Calcium Level 8.1 L, Total Creatine Kinase 118 Microbiology Microbiology 03/29/18 Blood Culture, Received Pending 03/29/18 Blood Culture, Received Pending Home Medications Scheduled Aspirin (Aspirin) 325 Mg Tab, 325 MG PO DAILY Furosemide (Furosemide) 80 Mg Tab, 80 MG PO BID Metoprolol Tartrate (Metoprolol Tartrate) 25 Mg Tab, 25 MG PO BID Sacubitril/Valsartan (Entresto 24-26 mg) 1 Tab Tab, 1 TAB PO BID Allergies Coded Allergies: Spironolactone (Unverified Adverse Reaction, Intermediate, SWELLING OF LOWER EXTREMITIES, RED COLORED URINE, 05/03/17) NICK CANTU MD Mar 29, 2018 10:10
[2018-03-29] MEDS ORDERED: NICOTINE 21MG/24HR 1 EA TRANSDERMAL TD ONE (10:15)
[2018-03-29] MEDS: OSELTAMIVIR PHOSPHATE 30MG CAPSULE PO SCH ×2 (11:59→19:55)
[2018-03-29] MEDS: ENTRESTO 24-26MG TABLET (SACUBITRIL/VALSARTAN) PO SCH ×2 (12:06→19:50)
[2018-03-29] MEDS: ASPIRIN ENTERIC 325 MG TAB PO SCH (12:06)
[2018-03-29] MEDS: METOPROLOL TART 25 MG TABLET PO SCH ×2 (12:07→19:50)
[2018-03-29] MEDS: FUROSEMIDE 40 MG/4 ML VIAL (J1940) IV SCH ×4 (12:20→23:01)
[2018-03-29 14:06] VITALS: BP 116/93
[2018-03-29 16:00] VITALS: BP 96/61
[2018-03-29 16:50] VITALS: BP 82/60
[2018-03-29 16:54] VITALS: BP 88/56
[2018-03-29 18:24] VITALS: BP 88/60
[2018-03-29 20:00] VITALS: BP 104/59
--- NOTE | 2018-03-29 20:53 | ECGEPIP ---
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
[2018-03-30] VITALS (7 sets, daily range): BP systolic 88–103; BP diastolic 53–64
[2018-03-30] MEDS: FUROSEMIDE 40 MG/4 ML VIAL (J1940) IV SCH ×3 (04:45→20:35)
[2018-03-30 05:37] LABS: HEMATOCRIT 37.7 % (42.0-52.0); HEMOGLOBIN 11.9 g/dl (13.5-17.5); MEAN CORPUSCULAR HEMOGLOBIN 24.8 pg (27.0-33.0); MEAN CORPUSCULAR HGB CONC 31.6 g/dl (32.0-36.5); MEAN CORPUSCULAR VOLUME 78.5 fl (80.0-96.0); PLATELET COUNT, AUTOMATED 193 10^3/uL (150-450); WHITE BLOOD COUNT 5.3 10^3/uL (4.0-10.0)
[2018-03-30 06:01] LABS: CALCIUM LEVEL 7.8 MG/DL (8.5-10.1); CREATININE FOR GFR 1.42 MG/DL (0.70-1.30); GLOMERULAR FILTRATION RATE 56.4 (>60); POTASSIUM SERUM 3.5 MEQ/L (3.5-5.1)
--- NOTE | 2018-03-30 08:10 | IPNPDOC ---
Text Note Date of Service The patient was seen on 03/30/18. NOTE Subjective: Patient seen and examined at bedside. No acute overnight events. Patient feels much better today. No specific medical complaints, but he did note some diarrhea yesterday. Objective: PHYSICAL EXAMINATION: GENERAL APPEARANCE: somewhat disheveled, lying comfortably in bed, NAD HEENT: NC/AT, EOMI, nasal cannula in place CARDIOVASCULAR: +S1S2, RRR LUNGS: b/l crackles ABDOMEN: soft, NT, +BS EXTREMITIES: peripheral edema NEUROLOGICAL: no gross focal deficits PSYCHIATRIC: AAOx3 LABORATORY DATA: See below. MICROBIOLOGY: Please see below. ASSESSMENT: 47 yo male for respiratory distress secondary to decompensated CHF complicated with influenza. #CHF - IV lasix - telemetry monitoring - strict I/O's, daily weight - d/w cardiology, c/s pending - his stated he had an adverse reaction to aldactone which she described as scrotal swelling; d/w cardiology, and it appears more likely to have been gynecomastia/breast tenderness #influenza - tamiflu #BRIA - improving - secondary to CHF #nicotine addiction - nicotine replacement therapy #DVT prophylaxis - heparin SC VS,Fishbone, I+O VS, Fishbone, I+O Laboratory Tests 03/30/18 04:57 Red Blood Count 4.80, Mean Corpuscular Volume 78.5 L, Mean Corpuscular Hemoglob in 24.8 L, Mean Corpuscular Hemoglobin Concent 31.6 L, Red Cell Distribution Width 17.3 H, Calcium Level 7.8 L Vital Signs Date Time Temp Pulse Resp B/P (MAP) Pulse Ox O2 Delivery O2 Flow Rate FiO2 03/30/18 04:00 98.3 72 20 96/56 (69) 96 2.0 03/29/18 12:14 Room Air I&O- Last 24 Hours up to 6 AM 03/30/18 06:00 Intake Total 685 ml Output Total 2325 ml Balance -1640 ml NICK CANTU MD Mar 30, 2018 08:10
[2018-03-30] MEDS: OSELTAMIVIR PHOSPHATE 30MG CAPSULE PO SCH (08:26)
[2018-03-30] MEDS: ASPIRIN ENTERIC 325 MG TAB PO SCH (08:26)
[2018-03-30] MEDS: ENTRESTO 24-26MG TABLET (SACUBITRIL/VALSARTAN) PO SCH ×2 (08:28→21:00)
[2018-03-30] MEDS: METOPROLOL TART 25 MG TABLET PO SCH ×2 (08:28→21:00)
[2018-03-30] MEDS: HEPARIN SOD (PORCINE) 5000 UNITS/ML VIAL SQ SCH ×3 (14:00→21:17)
[2018-03-30] MEDS: OSELTAMIVIR PHOSPHATE 75 MG CAP (TAMIFLU) PO SCH (21:12)
[2018-03-31] VITALS (7 sets, daily range): BP systolic 84–109; BP diastolic 54–68
[2018-03-31] MEDS: FUROSEMIDE 40 MG/4 ML VIAL (J1940) IV SCH (04:00)
[2018-03-31 05:36] LABS: HEMATOCRIT 38.3 % (42.0-52.0); HEMOGLOBIN 11.7 g/dl (13.5-17.5); MEAN CORPUSCULAR HGB CONC 30.5 g/dl (32.0-36.5); MEAN CORPUSCULAR VOLUME 78.5 fl (80.0-96.0); PLATELET COUNT, AUTOMATED 169 10^3/uL (150-450); RED BLOOD COUNT 4.88 10^6/uL (4.30-6.10); WHITE BLOOD COUNT 4.1 10^3/uL (4.0-10.0)
[2018-03-31] MEDS: HEPARIN SOD (PORCINE) 5000 UNITS/ML VIAL SQ SCH ×3 (06:00→20:40)
[2018-03-31 06:01] LABS: BLOOD UREA NITROGEN 21 MG/DL (7-18); CALCIUM LEVEL 7.5 MG/DL (8.5-10.1); CARBON DIOXIDE LEVEL 31 MEQ/L (21-32); CHLORIDE LEVEL 101 MEQ/L (98-107); CREATININE FOR GFR 1.13 MG/DL (0.70-1.30); GLOMERULAR FILTRATION RATE > 60.0 (>60); GLUCOSE, FASTING 107 MG/DL (70-100); POTASSIUM SERUM 3.1 MEQ/L (3.5-5.1); SODIUM LEVEL 136 MEQ/L (136-145)
[2018-03-31] MEDS ORDERED: POTASSIUM CHLORIDE 10 MEQ SR TABLET PO ONE (07:15)
[2018-03-31 07:46] LABS: MAGNESIUM LEVEL 2.1 MG/DL (1.8-2.4)
[2018-03-31] MEDS: ENTRESTO 24-26MG TABLET (SACUBITRIL/VALSARTAN) PO SCH ×3 (08:12→20:37)
[2018-03-31] MEDS: OSELTAMIVIR PHOSPHATE 75 MG CAP (TAMIFLU) PO SCH ×2 (08:12→20:40)
[2018-03-31] MEDS: METOPROLOL TART 12.5 MG PER 1/2 TAB PO SCH ×2 (08:13→20:40)
[2018-03-31] MEDS: FUROSEMIDE 80 MG TAB PO SCH ×2 (08:14→16:39)
[2018-03-31] MEDS: ASPIRIN ENTERIC 325 MG TAB PO SCH (08:14)
--- NOTE | 2018-03-31 13:05 | IPNPDOC ---
Text Note Date of Service The patient was seen on 03/31/18. NOTE Subjective: Patient seen and examined at bedside. No acute overnight events. Still hypotensive, but asymptomatic with minimal dizziness according to patient. Objective: PHYSICAL EXAMINATION: GENERAL APPEARANCE: somewhat disheveled, lying comfortably in bed, NAD HEENT: NC/AT, EOMI CARDIOVASCULAR: +S1S2, RRR LUNGS: minimal b/l crackles ABDOMEN: soft, NT, +BS EXTREMITIES: trace peripheral edema NEUROLOGICAL: no gross focal deficits PSYCHIATRIC: AAOx3 LABORATORY DATA: See below. MICROBIOLOGY: Please see below. ASSESSMENT: 47 yo male for respiratory distress secondary to decompensated CHF complicated with influenza. #CHF - resume home PO lasix dosage - telemetry monitoring - strict I/O's, daily weight - d/w cardiology - ok to discharge home and resume home medications, reduce BB to 12.5 BID - his stated he had an adverse reaction to aldactone which she described as scrotal swelling; d/w cardiology, and it appears more likely to have been gynecomastia/breast tenderness #influenza - tamiflu #BRIA - improving - secondary to CHF #nicotine addiction - nicotine replacement therapy #DVT prophylaxis - heparin SC VS,Fishbone, I+O VS, Fishbone, I+O Laboratory Tests 03/31/18 04:30 Red Blood Count 4.88, Mean Corpuscular Volume 78.5 L, Mean Corpuscular Hemoglobin 24.0 L, Mean Corpuscular Hemoglobin Concent 30.5 L, Red Cell Distribution Width 17.4 H, Calcium Level 7.5 L Vital Signs Date Time Temp Pulse Resp B/P (MAP) Pulse Ox O2 Delivery O2 Flow Rate FiO2 03/31/18 08:13 66 101/59 03/31/18 08:00 99.4 18 91 03/31/18 04:00 2.0 03/29/18 12:14 Room Air I&O- Last 24 Hours up to 6 AM 03/31/18 06:00 Intake Total 1280 ml Output Total 2450 ml Balance -1170 ml NICK CANTU MD Mar 31, 2018 13:05
[2018-03-31] MEDS ORDERED: SLF 3 ML SYR IV PRN (15:45)
[2018-03-31] MEDS: NICOTINE 21MG/24HR 1 EA TRANSDERMAL TD SCH (18:38)
[2018-03-31] MEDS: SLF 3 ML SYR IV SCH (20:40)
[2018-04-01] VITALS: BP 98/58
[2018-04-01 04:00] VITALS: BP 140/65
[2018-04-01 05:44] LABS: HEMATOCRIT 38.4 % (42.0-52.0); HEMOGLOBIN 11.7 g/dl (13.5-17.5); MEAN CORPUSCULAR HEMOGLOBIN 24.3 pg (27.0-33.0); MEAN CORPUSCULAR HGB CONC 30.5 g/dl (32.0-36.5); MEAN CORPUSCULAR VOLUME 79.8 fl (80.0-96.0); PLATELET COUNT, AUTOMATED 168 10^3/uL (150-450); RED BLOOD COUNT 4.81 10^6/uL (4.30-6.10); WHITE BLOOD COUNT 3.5 10^3/uL (4.0-10.0)
[2018-04-01] MEDS: HEPARIN SOD (PORCINE) 5000 UNITS/ML VIAL SQ SCH (06:00)
[2018-04-01] MEDS: SLF 3 ML SYR IV SCH (06:00)
[2018-04-01 06:03] LABS: BLOOD UREA NITROGEN 18 MG/DL (7-18); CALCIUM LEVEL 7.8 MG/DL (8.5-10.1); CARBON DIOXIDE LEVEL 28 MEQ/L (21-32); CHLORIDE LEVEL 101 MEQ/L (98-107); CREATININE FOR GFR 0.96 MG/DL (0.70-1.30); GLOMERULAR FILTRATION RATE > 60.0 (>60); GLUCOSE, FASTING 78 MG/DL (70-100); POTASSIUM SERUM 4.2 MEQ/L (3.5-5.1); SODIUM LEVEL 137 MEQ/L (136-145)
[2018-04-01 07:58] VITALS: BP 90/53
[2018-04-01] MEDS: METOPROLOL TART 12.5 MG PER 1/2 TAB PO SCH (07:58)
[2018-04-01] MEDS ORDERED: FURO20TA2 PO (08:17)
[2018-04-01] MEDS ORDERED: METO1TAB87 PO (08:17)
[2018-04-01] MEDS: OSELTAMIVIR PHOSPHATE 75 MG CAP (TAMIFLU) PO SCH (08:18)
[2018-04-01] MEDS: ENTRESTO 24-26MG TABLET (SACUBITRIL/VALSARTAN) PO SCH (08:18)
[2018-04-01] MEDS: ASPIRIN ENTERIC 325 MG TAB PO SCH (08:18)
[2018-04-01] MEDS: NICOTINE 21MG/24HR 1 EA TRANSDERMAL TD SCH (08:18)
[2018-04-01] MEDS ORDERED: OSEL75CA2 PO (08:21)
--- NOTE | 2018-04-01 08:21 | DS.PDOC ---
Discharge Summary General Date of Admission Mar 29, 2018 at 09:54 Date of Discharge 04/01/18 Specialist/Consultants Involve: NORMA VINSON MD Discharge Summary PROCEDURES PERFORMED DURING STAY: [None]. DISCHARGE DIAGNOSES: 1. influenza A 2. decompensated heart failure 3. acute kidney injury SECONDARY DIAGNOSES: 1. CHF - severe systolic failure - EF 10% s/p AICD 2. Hx of EtOH abuse - likely dilated cardiomyopathy 3. Nicotine addiction 4. Hx of NSVT 5. Medical non-compliance COMPLICATIONS/CHIEF COMPLAINT: Congestive Heart Failure. HISTORY OF PRESENT ILLNESS: 47 yo male for several day history of worsening shortness of breath. Admits to non-compliance with recently prescribed medication (Aldactone). was concerned regarding a severe allergy which she described as scrotal swelling, and they were in the process of notifying prescriber of this adverse reaction. He was found to be in CHF and tested positive for influenza A. HOSPITAL COURSE: Patient admitted for further evaluation and treatment. Seen by cardiology. Treated with tamiflu for influenza. Diuretics and beta blockade down titrated. Patient very anxious to return home yesterday, agreed to stay one more day as requested. Discussed with cardiology, with recommendations for discharge home, resuming home medications with adjustments as made while inpatient. Today on day of discharge he states he will leave AMA if not discharged home. DISCHARGE MEDICATIONS: Please see below. ALLERGIES: Please see below. PHYSICAL EXAMINATION ON DISCHARGE: GENERAL APPEARANCE: lying comfortably in bed, NAD HEENT: NC/AT, EOMI CARDIOVASCULAR: +S1S2, RRR LUNGS: CTA B/L ABDOMEN: soft, NT, +BS EXTREMITIES: no edema NEUROLOGICAL: no gross focal deficits PSYCHIATRIC: AAOx3 LABORATORY DATA: Please see below. ACTIVITY: [As tolerated]. DISPOSITION: Discharge home PROGNOSIS: Guarded/Poor prognosis ITEMS TO FOLLOWUP ON ON OUTPATIENT: 1. Follow up with cardiology Dr. Vinson in 1-3 days. 2. Follow up with PCP in 1-3 days. DISCHARGE CONDITION: [Stable]. TIME SPENT ON DISCHARGE: Greater than 30 minutes. Vital Signs/I&Os Vital Signs Date Time Temp Pulse Resp B/P (MAP) Pulse Ox O2 Delivery O2 Flow Rate FiO2 04/01/18 07:58 97.4 61 18 90/53 (65) 97 03/31/18 04:00 2.0 03/29/18 12:14 Room Air I&O- Last 24 Hours up to 6 AM 04/01/18 06:00 Intake Total 840 ml Output Total 1450 ml Balance -610 ml Laboratory Data Labs 24H Laboratory Tests 2 04/01/18 04:36: Nucleated Red Blood Cells % (auto) 0.0, Anion Gap 8, Glomerular Filtration Rate > 60.0, Blood Urea Nitrogen 18, Creatinine 0.96, Sodium Level 137, Potassium Level 4.2#, Chloride Level 101, Carbon Dioxide Level 28, Calcium Level 7.8L CBC/BMP Laboratory Tests 04/01/18 04:36 Red Blood Count 4.81, Mean Corpuscular Volume 79.8 L, Mean Corpuscular Hemoglobin 24.3 L, Mean Corpuscular Hemoglobin Concent 30.5 L, Red Cell Distribution Width 17.4 H, Calcium Level 7.8 L Microbiology Microbiology 03/29/18 Blood Culture - Preliminary, Resulted No Growth after 72 hours. All specime... 03/29/18 Blood Culture - Preliminary, Resulted No Growth after 72 hours. All specime... Discharge Medications Scheduled Aspirin (Aspirin) 325 Mg Tab, 325 MG PO DAILY, (Reported) Furosemide (Furosemide) 80 Mg Tab, 80 MG PO BID, (Reported) Furosemide (Furosemide) 20 Mg Tab, 60 MG PO BID@, Metoprolol Tartrate (Metoprolol Tartrate) 25 Mg Tab, 25 MG PO BID, (Reported) Metoprolol Tartrate (Metoprolol Tartrate) 25 Mg Tab, 12.5 MG PO BID Oseltamivir Phosphate (Oseltamivir Phosphate) 75 Mg Cap, 75 MG PO BID Sacubitril/Valsartan (Entresto 24-26 mg) 1 Tab Tab, 1 TAB PO BID, (Reported) Allergies Coded Allergies: Spironolactone (Unverified Adverse Reaction, Intermediate, SWELLING OF LOWER EXTREMITIES, RED COLORED URINE, 05/03/17) NICK CANTU MD Apr 01, 2018 08:21
[2018-04-01] MEDS ORDERED: NICO21PAT TD (08:24)
[2018-04-01] MEDS ORDERED: FUROSEMIDE 20 MG TAB PO SCH (09:00)
[2018-04-01 09:15] VITALS: BP 104/68
--- NOTE | 2018-04-01 11:08 | ECHO ---
DATE OF PROCEDURE: 03/29/2018 REFERRING PHYSICIAN: Dr. Esposito INDICATION: Shortness of breath. Height 170 cm Weight 87 kg DIMENSIONS: IVS 1.1 LV 7.7 LVPW 1.1 LA 4.9 Aorta 2.8 IVC 2.9 Mitral E wave velocity 73 E prime septal 3.2 E prime lateral 6.0 FINDINGS: The study is of acceptable technical quality. Left ventricle is severely dilated and severely globally hypokinetic. Septum appears to be almost dyskinetic. Overall estimated left ventricular ejection fraction is around 10-15%. Computer-generated ejection fraction is around 20% depending on method used. Right ventricle is also dilated and hypokinetic. Both atria are severely enlarged, left more than right. Aortic valve appears normal. Same applies for mitral and tricuspid valves. Visualization of pulmonic valve was limited but also appears grossly normal. No pericardial effusion is noted. Inferior vena cava is markedly dilated and has no appreciable collapse with respiration, indicative of very high central venous pressure. Aortic root is normal. Aortic arch was poorly seen but grossly appears normal. Abdominal aorta appears normal as well. There are echo artifacts in right-sided heart chambers consistent with ICD lead. There is no aortic stenosis or insufficiency. Approximately mild to mitral insufficiency is present. Moderate tricuspid insufficiency is present. Calculated pulmonary artery pressure is at minimum in mid 40s, corresponding to moderate pulmonary hypertension. Trace pulmonic insufficiency is seen. Evaluation of diastolic function is inconclusive. There is only mitral E but not A velocity apparent on mitral inflow. Tissue Doppler velocities are very low and left atrial volume is severely enlarged, and I estimate that the patient has at least grade 2 diastolic dysfunction. CONCLUSIONS: 1. Markedly dilated, globally hypokinetic left ventricle with severe left ventricular systolic dysfunction. 2. Competent aortic valve. 3. Mild mitral insufficiency, moderate tricuspid insufficiency. 4. Dilated hypokinetic right ventricle. 5. Very high central venous pressure. 6. At least moderate pulmonary hypertension. 7. ICD leads in right-sided heart chambers. COMMENTS: SBE prophylaxis is not recommended. It is not clear whether this represents ischemic or nonischemic cardiomyopathy, but is suggestive of grossly volume overloaded state. MTDD
== END 2018-04-01 09:35 | disposition home or self-care (01) | DRG 194 ==
LOC: M ED 06:10 → M ED INP 09:54 → M PCU 13:55
PROVIDERS: ADMIT Internal Medicine; ATTEND Internal Medicine
DX: I50.23 Acute on chronic systolic (congestive) heart failure (principal); N17.9 Acute kidney failure, unspecified; I42.0 Dilated cardiomyopathy; J10.1 Influenza due to other identified influenza virus with other respiratory manifestations; Z91.19 Patient's noncompliance with other medical treatment and regimen; F17.200 Nicotine dependence, unspecified, uncomplicated; F10.10 Alcohol abuse, uncomplicated; Z79.899 Other long term (current) drug therapy; Z79.82 Long term (current) use of aspirin; Z88.8 Allergy status to other drugs, medicaments and biological substances

== ENCOUNTER 2018-06-03 08:22 | Emergency (ER) | payer OTHER, SELFPAY ==
[~2018-06-03] VITALS: Ht 170.2 cm; Wt 92.7 kg
[~2018-06-03 08:22] MED LIST changes: +ASPI-1 PO; -ASPI325T PO; +LISI-1046 PO; -LISI2.5T5 PO; +NICO21PAT TD; +OSEL75CA2 PO
[2018-06-03] MEDS ORDERED: MULTCAP PO (08:43)
[2018-06-03 08:59] LABS: BASO # 0.1 10^3/uL (0.0-0.2); BASO % 1.1 % (0.0-1.0); EOS # 0.1 10^3/uL (0.0-0.50); EOS % 1.3 % (0.0-3.0); HEMATOCRIT 41.8 % (42.0-52.0); HEMOGLOBIN 13.2 g/dl (13.5-17.5); LYMPH # 0.8 10^3/uL (1.5-4.5); LYMPH % 15.9 % (24.0-44.0); MEAN CORPUSCULAR HEMOGLOBIN 25.8 pg (27.0-33.0); MEAN CORPUSCULAR HGB CONC 31.6 g/dl (32.0-36.5); MEAN CORPUSCULAR VOLUME 81.6 fl (80.0-96.0); MONO # 0.4 10^3/uL (0.0-0.8); MONO % 9.3 % (0.0-5.0); NEUTROPHILS # 3.4 10^3/uL (1.8-7.7); NEUTROPHILS % 72.2 % (36.0-66.0); PLATELET COUNT, AUTOMATED 197 10^3/uL (150-450); RED BLOOD COUNT 5.12 10^6/uL (4.30-6.10); WHITE BLOOD COUNT 4.7 10^3/uL (4.0-10.0)
[2018-06-03 09:23] LABS: ALBUMIN 3.5 GM/DL (3.2-5.2); ALT/SGPT 23 U/L (12-78); BILIRUBIN,TOTAL 2.6 MG/DL (0.2-1.0); BLOOD UREA NITROGEN 17 MG/DL (7-18); CALCIUM LEVEL 8.6 MG/DL (8.5-10.1); CARBON DIOXIDE LEVEL 25 MEQ/L (21-32); CHLORIDE LEVEL 102 MEQ/L (98-107); CPK CREATINE PHOSPHOKINASE 90 U/L (39-308); GLOMERULAR FILTRATION RATE 57.3 (>60); GLUCOSE, FASTING 156 MG/DL (70-100); LIPASE 83 U/L (73-393); MB/CK RELATIVE INDEX 1.56 (< OR =4); POTASSIUM SERUM 3.3 MEQ/L (3.5-5.1); SODIUM LEVEL 138 MEQ/L (136-145); TOTAL PROTEIN 6.7 GM/DL (6.4-8.2); TROPONIN I < 0.02 NG/ML (< 0.10)
[2018-06-03 09:24] LABS: FREE T4 1.13 NG/DL (0.76-1.46); THYROID STIMULATING HORMONE 3.73 uIU/ML (0.358-3.740)
[2018-06-03] MEDS ORDERED: POTASSIUM CHLORIDE 10 MEQ SR TABLET PO ONE (09:45)
[2018-06-03 09:50] VITALS: O2SAT 95
[2018-06-03] MEDS ORDERED: FUROSEMIDE 40 MG/4 ML VIAL (J1940) IV ONE (10:00)
[2018-06-03 10:02] LABS: INR 1.14; PROTHROMBIN TIME 14.8 SECONDS (12.1-14.4)
[2018-06-03 10:45] VITALS: BP 112/85
--- NOTE | 2018-06-03 19:25 | ECGEPIP ---
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
--- NOTE | 2018-06-04 09:29 | REP ---
Chest x-ray: Two views. History: Shortness of breath on exertion. Cough. Comparison chest x-ray: March 29, 2018. Findings: There is a multi lead pacemaker again noted in the markedly enlarged heart. EKG electrodes are seen. Pulmonary vascular congestion is seen. There are Marcia B lines at the right base consistent with mild interstitial edema. No pleural effusion is seen. There is a little fissural thickening on the right. An old healed rib fractures noted on the right as well. Impression: CHF pattern with fissural thickening and Marcia B lines. Marked cardiomegaly with pacemaker. Electronically Signed by Lior Herrera MD 06/03/2018 09:42 A
[2018-06-05] MEDS ORDERED: FURO80TA2 PO (06:33)
[2018-06-05] MEDS ORDERED: METO25TA4 PO (08:29)
[2018-06-05] MEDS ORDERED: FURO40TA2 PO (08:29)
== END 2018-06-03 11:00 | disposition home or self-care (01) ==
LOC: M ED 08:22
DX: I50.9 Heart failure, unspecified (principal); Z88.8 Allergy status to other drugs, medicaments and biological substances; Z79.82 Long term (current) use of aspirin; Z79.899 Other long term (current) drug therapy
CPT/HCPCS: 36415; 71046; 80053; 82550; 82553; 83690; 84439; 84443; 84484; 85025; 85610; 93005; 93041; 94760; 96374; 99285; J1940

== ENCOUNTER 2018-10-19 17:25 | Inpatient (IN) | payer OTHER, SELFPAY ==
[~2018-10-19] VITALS: Ht 170.2 cm; Wt 101.6 kg
[~2018-10-19 17:25] MED LIST changes: +MULTCAP PO
[2018-10-19] MEDS ORDERED: FUROSEMIDE 100 MG/10 ML VIAL (J1940) IV ONE (18:15)
[2018-10-19] MEDS ORDERED: IPRATROPIUM 0.5MG/ALBUTEROL 2.5MG INH SOL UD 3ML (DUONEB)(J7620) NEB ONE (18:15)
[2018-10-19 18:26] LABS: BASO # 0.1 10^3/uL (0.0-0.2); EOS % 0.4 % (0.0-3.0); HEMATOCRIT 42.9 % (42.0-52.0); HEMOGLOBIN 13.4 g/dl (13.5-17.5); LYMPH # 0.6 10^3/uL (1.5-4.5); LYMPH % 11.9 % (24.0-44.0); MEAN CORPUSCULAR HEMOGLOBIN 25.5 pg (27.0-33.0); MEAN CORPUSCULAR HGB CONC 31.2 g/dl (32.0-36.5); MEAN CORPUSCULAR VOLUME 81.6 fl (80.0-96.0); MONO # 0.5 10^3/uL (0.0-0.8); MONO % 9.7 % (0.0-5.0); NEUTROPHILS # 3.8 10^3/uL (1.8-7.7); NEUTROPHILS % 76.6 % (36.0-66.0); PLATELET COUNT, AUTOMATED 264 10^3/uL (150-450); RED BLOOD COUNT 5.26 10^6/uL (4.30-6.10)
--- NOTE | 2018-10-19 18:26 | REP ---
Clinical: Cough and dyspnea. Comparison: 06/05/2018. Findings: Stable generalized cardiomegaly is appreciated. Lung campbell demonstrate stable chronic changes and mild chronic interstitial edema cannot be excluded. No focal consolidation. No effusion. No pneumothorax. Skeletal structures intact. Pacemaker stable. Impression: Stable cardiomegaly and stable chronic changes. No focal consolidation or effusion. Electronically Signed by Tye Stratton MD 10/19/2018 06:18 P
[2018-10-19 19:21] LABS: ALBUMIN 3.1 GM/DL (3.2-5.2); ALT/SGPT 32 U/L (12-78); BILIRUBIN,DIRECT 1.8 MG/DL (0.0-0.2); BILIRUBIN,TOTAL 2.7 MG/DL (0.2-1.0); BLOOD UREA NITROGEN 19 MG/DL (7-18); CALCIUM LEVEL 8.5 MG/DL (8.5-10.1); CARBON DIOXIDE LEVEL 29 MEQ/L (21-32); CHLORIDE LEVEL 100 MEQ/L (98-107); CK-MB VALUE MASS 1.2 NG/ML (<3.6); CPK CREATINE PHOSPHOKINASE 82 U/L (39-308); CREATININE FOR GFR 1.12 MG/DL (0.70-1.30); GLOMERULAR FILTRATION RATE > 60.0 (>60); GLUCOSE, FASTING 166 MG/DL (70-100); MB/CK RELATIVE INDEX 1.46 (< OR =4); NT-PRO BNP 4037 PG/ML (<125); POTASSIUM SERUM 3.5 MEQ/L (3.5-5.1); SODIUM LEVEL 139 MEQ/L (136-145); TOTAL PROTEIN 6.4 GM/DL (6.4-8.2); TROPONIN I < 0.02 NG/ML (< 0.10)
--- NOTE | 2018-10-19 19:36 | ECGEPIP ---
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
[2018-10-19] MEDS ORDERED: FURO80TA2 PO (20:20)
[2018-10-19 20:59] VITALS: BP 128/91
[2018-10-19] MEDS ORDERED: ENTRESTO 24-26MG TABLET (SACUBITRIL/VALSARTAN) PO SCH (21:00)
--- NOTE | 2018-10-19 21:14 | HPEPDOC ---
[facility] Medical History & Physical Date of Admission Oct 19, 2018 Date of Service: Oct 19, 2018 Other Provider Former PCP: Teddy Carpenter, now has none Attending Physician: SEEMA BUSCH MD History and Physical PRIMARY CARE PROVIDER: None, former Teddy Carpenter patient ATTENDING: Dr. Seema Busch CHIEF COMPLAINT: Shortness of breath HISTORY OF PRESENT ILLNESS: Patient is a 47 year old male presenting with chief complaint of shortness of breath for the past 1-2 weeks. He presents stating he presented to the emergency department today after he was unable to stand up and go to the bathroom without becoming short of breath. He has a history of CHF with hospitalizations in the past at [facility] and follows with Dr. Duff. In the room he and his stated that he took his medications every day, however on speaking to the hospitalist medical director she discovered that he had been obtaining sa mples of his Entresto and has not taken that medication in at least the last month due to difficulties getting this medication through his insurance. PAST MEDICAL HISTORY: CHF - severe systolic failure - EF 10% s/p AICD Diastolic CHF Moderate pulmonary hypertension and right heart failure due to the above Mitral and tricuspid regurgitation History of alcohol abuse (hasn't had drink in over a year) Nicotine addiction History of NSVT History of medical noncompliance Obesity. 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 PAST SURGICAL HISTORY: AICD placement SOCIAL HISTORY: Admits to alcohol use in the past, but states he has not had a drink in over a year, half pack per day for at least the last 10 years, denies any marijuana, heroin, cocaine, or PCP use. No sick contacts. FAMILY HISTORY: Father in his 20s from heart disease. Mother with chronic obstructive pulmonary disease (COPD). Brother and sister with diabetes ALLERGIES: Please see below. REVIEW OF SYSTEMS: GENERAL: Denies fevers, chills, recent unexpected weight change, night sweats, hemoptysis HEENT: Denies headache, dizziness, vision changes, hearing loss, sore throat CARDIOVASCULAR: Denies chest pain, palpitations. Admits to orthopnea, swelling in his bilateral lower extremities RESPIRATORY: Denies wheezing, cough. Admits to shortness of breath, dyspnea on exertion GASTROINTESTINAL: denies nausea, vomiting, abdominal pain, constipation, diarrhea, bloody stool GENITOURINARY: Denies dysuria,urinary urgency, hematuria. MUSCULOSKELETAL: Denies muscle/joint pain, weakness, stiffness NEUROLOGICAL: Denies any numbness/tingling, focal weakness, or syncope HOME MEDICATIONS: Please see below. PHYSICAL EXAMINATION: Vitals: (see below) General: No acute distress, laying comfortably in bed, but breathing hard. HEENT: Normocephalic, atraumatic. EOMI. No scleral icterus. Dry mucous membranes. No pharyngeal erythema or uvular deviation. Neck: No JVD, lymphadenopathy, or thyromegaly. Cardiac: RRR, Normal S1 and S2, No murmurs, gallops, rubs. Pulm: Diminished breath sounds bilaterally. Symmetric thorax. No wheezing, rhonchi. Crackles on auscultation of bilateral lower lobes. Using accessory supraclavicular muscles to help breathe Abd: Bowel Sounds present. Obese Abdomen. Abdomen is soft, non-tender, non- distended. No guarding, rebound tenderness, or rigidity. No hepatosplenomegaly. No masses or eccymosis. Ext: 2+ pitting edema in bilateral lower extremities below the knee Neuro: Alert and oriented CN 3-12 grossly intact. LABORATORY DATA: See below. IMAGING: CXR: Impression: Stable cardiomegaly and stable chronic changes. No focal consolidation or effusion. MICROBIOLOGY: Please see below. ASSESSMENT/PLAN: 47-year-old male with shortness of breath, bilateral lower extremity edema, and elevated BNP suspicious for decompensated CHF. #. Decompensated Systolic and diastolic combined CHF with reduced EF of 10% to 15% - IV Lasix 40 mg every 6 hours, daily weights, I/O's, daily labs,fluid restriction 1.5 liters - Will hold Entresto as not taking for 1 month continue metoprolol with hold parameters. We may hold these at lower Bps so that we are able to effectively diureses given the patient's lower extremity edema and crackles in his lungs #. Nicotine addiction -If needed, he may have a nicotine patch # DVT prophy: Teds, heparin SQ Vital Signs Vital Signs Date Time Temp Pulse Resp B/P (MAP) Pulse Ox O2 Delivery O2 Flow Rate FiO2 10/19/18 20:46 83 142/84 (103) 97 10/19/18 18:00 Nasal Cannula 2.0 10/19/18 17:26 97.9 36 Laboratory Data Labs 24H Laboratory Tests 2 10/19/18 18:00: Immature Granulocyte % (Auto) 0.4, White Blood Count 5.0, Red Blood Count 5.26, Hemoglobin 13.4L, Hematocrit 42.9, Mean Corpuscular Volume 81.6, Mean Corpuscular Hemoglobin 25.5L, Mean Corpuscular Hemoglobin Concent 31.2L, Red Cell Distribution Width 20.2H, Platelet Count 264, Neutrophils (%) (Auto) 76.6H, Lymphocytes (%) (Auto) 11.9L, Monocytes (%) (Auto) 9.7H, Eosinophils (%) (Auto) 0.4, Basophils (%) (Auto) 1.0, Neutrophils # (Auto) 3.8, Lymphocytes # (Auto) 0.6L, Monocytes # (Auto) 0.5, Eosinophils # (Auto) 0.0, Basophils # (Auto) 0.1, Nucleated Red Blood Cells % (auto) 0.0, Anion Gap 10, Glomerular Filtration Rate > 60.0, Lactic Acid Level 2.0, Calcium Level 8.5, Aspartate Amino Transf (AST/SGOT) 39H, Alanine Aminotransferase (ALT/SGPT) 32, Alkaline Phosphatase 377H, Total Bilirubin 2.7H, Direct Bilirubin 1.8H, Total Creatine Kinase 82, Creatine Kinase MB 1.2, Creatine Kinase MB Relative Index 1.46, Troponin I < 0.02, HM-Vmk-I-Type Natriuretic Peptide 4037H, Total Protein 6.4, Albumin 3.1L, Albumin/Globulin Ratio 0.94L, Thyroid Stimulating Hormone (TSH) 6.890H CBC/BMP Laboratory Tests 10/19/18 18:00 Red Blood Count 5.26, Mean Corpuscular Volume 81.6, Mean Corpuscular Hemoglobin 25.5 L, Mean Corpuscular Hemoglobin Concent 31.2 L, Red Cell Distribution Width 20.2 H, Neutrophils (%) (Auto) 76.6 H, Lymphocytes (%) (Auto) 11.9 L, Monocytes (%) (Auto) 9.7 H, Eosinophils (%) (Auto) 0.4, Basophils (%) (Auto) 1.0, Neutrophils # (Auto) 3.8, Lymphocytes # (Auto) 0.6 L, Monocytes # (Auto) 0.5, Eosinophils # (Auto) 0.0, Basophils # (Auto) 0.1 Home Medications Scheduled Aspirin (Aspirin EC) 325 Mg Tab, 325 MG PO DAILY Furosemide (Furosemide) 80 Mg Tablet, 80 MG PO BID Metoprolol Tartrate (Metoprolol Tartrate) 25 Mg Tablet, 12.5 MG PO BID Multivitamin (Multivitamins) 1 Each Capsule, 1 CAP PO DAILY Allergies Coded Allergies: spironolactone (Verified Allergy, Mild, SWELLING, 06/05/18) A-FIB/CHADSVASC A-FIB History Current/History of A-Fib/PAF?: No GME ATTESTATION GME ATTESTATION My faculty preceptor for this patient encounter was physically present during the encounter and was fully available. All aspects of the patient interview, examination, medical decision making process, and medical care plan development were reviewed and approved by the faculty preceptor. The faculty preceptor is aware and concurs with the plan as stated in the body of this note and will attest to such by his/her cosignature. ATTENDING NOTE I personally performed a history and physical examination of the patient and discussed the management with the resident. I reviewed the resident's note and agree with the documented findings and plan of care. ELZBEITA PIMENTEL DO Oct 19, 2018 21:14 SEEMA BUSCH MD Oct 20, 2018 00:57
[2018-10-19] MEDS: METOPROLOL TART 25 MG TABLET PO SCH (21:48)
[2018-10-19] MEDS: HEPARIN SOD (PORCINE) 5000 UNITS/ML VIAL SQ SCH (21:51)
[2018-10-20] VITALS (8 sets, daily range): BP systolic 92–138; BP diastolic 54–87
[2018-10-20] MEDS: FUROSEMIDE 40 MG/4 ML VIAL (J1940) IV SCH ×5 (00:12→18:39)
[2018-10-20 05:24] LABS: HEMATOCRIT 41.8 % (42.0-52.0); HEMOGLOBIN 13.1 g/dl (13.5-17.5); MEAN CORPUSCULAR HGB CONC 31.3 g/dl (32.0-36.5); MEAN CORPUSCULAR VOLUME 79.6 fl (80.0-96.0); PLATELET COUNT, AUTOMATED 272 10^3/uL (150-450); RED BLOOD COUNT 5.25 10^6/uL (4.30-6.10); WHITE BLOOD COUNT 5.2 10^3/uL (4.0-10.0)
[2018-10-20 05:45] LABS: ALBUMIN 2.8 GM/DL (3.2-5.2); ALT/SGPT 27 U/L (12-78); BILIRUBIN,TOTAL 2.4 MG/DL (0.2-1.0); BLOOD UREA NITROGEN 17 MG/DL (7-18); CALCIUM LEVEL 8.3 MG/DL (8.5-10.1); CARBON DIOXIDE LEVEL 30 MEQ/L (21-32); CHLORIDE LEVEL 102 MEQ/L (98-107); CREATININE FOR GFR 1.06 MG/DL (0.70-1.30); GLOMERULAR FILTRATION RATE > 60.0 (>60); GLUCOSE, FASTING 95 MG/DL (70-100); POTASSIUM SERUM 3.2 MEQ/L (3.5-5.1); SODIUM LEVEL 140 MEQ/L (136-145); TOTAL PROTEIN 6.3 GM/DL (6.4-8.2)
[2018-10-20] MEDS: HEPARIN SOD (PORCINE) 5000 UNITS/ML VIAL SQ SCH ×3 (06:00→22:00)
[2018-10-20] MEDS ORDERED: POTASSIUM CHLORIDE 10 MEQ SR TABLET PO ONE (06:15)
[2018-10-20] MEDS: ASPIRIN ENTERIC 325 MG TAB PO SCH (08:06)
[2018-10-20] MEDS: POTASSIUM CHLORIDE 10 MEQ SR TABLET PO SCH ×2 (08:07→20:43)
[2018-10-20] MEDS: METOPROLOL TART 25 MG TABLET PO SCH (08:07)
--- NOTE | 2018-10-20 13:09 | IPNPDOC ---
Date Seen The patient was seen on 10/20/18. Progress Note SUBJECTIVE: Patient reported feeling much better today than on arrival. Appeared labored in breathing still however, sitting at the edge of the bed. Denies any significant complaints apart from SOB. OBJECTIVE PHYSICAL EXAMINATION: VITAL SIGNS: Please see below. General: Alert, labored breathing, mild distress. Eyes: Normal sclera, EOMI, EZEKIEL HENT: Atraumatic, neck supple, moist mucous membranes Cardiovascular: Normal rate. 2+ pitting edema b/l. Pulmonary: Minimal crackles b/l lower lung bases. GI: Soft, nontender, nondistended Skin: Warm and dry Neuro: CN grossly intact. No focal deficits. Strengths equal b/l. Psych: oriented x 3 LABORATORY DATA, IMAGING STUDIES, MICROBIOLOGY: Please see below. DVT prophylaxis ordered?: Los ASSESSMENT AND PLAN: 1. Decompensated combine HF - Poor function at baseline, EF 10-15%. - Clinically improving, continue with diuresis. Lasix 40 IV q6 at this time. Monitor daily weights, I/O, fluid restriction. - c/w Entresto, patient already has supplies at home. 2. hx alcohol abuse: >1 year since last drink. 3. hx pulmonary hypertension. DISPOSITION: Home once stable. VS, I&O, 24H, Fishbone Vital Signs/I&O Vital Signs Date Time Temp Pulse Resp B/P (MAP) Pulse Ox O2 Delivery O2 Flow Rate FiO2 10/20/18 11:32 97.0 72 20 98/62 (74) 95 2.0 10/19/18 18:00 Nasal Cannula I&O- Last 24 Hours up to 6 AM 10/20/18 05:59 Intake Total 300 ml Output Total 1275 ml Balance -975 ml Laboratory Data 24H LABS Laboratory Tests 2 10/19/18 18:00: Immature Granulocyte % (Auto) 0.4, White Blood Count 5.0, Red Blood Count 5.26, Hemoglobin 13.4L, Hematocrit 42.9, Mean Corpuscular Volume 81.6, Mean Corpuscular Hemoglobin 25.5L, Mean Corpuscular Hemoglobin Concent 31.2L, Red Cell Distribution Width 20.2H, Platelet Count 264, Neutrophils (%) (Auto) 76.6H, Lymphocytes (%) (Auto) 11.9L, Monocytes (%) (Auto) 9.7H, Eosinophils (%) (Auto) 0.4, Basophils (%) (Auto) 1.0, Neutrophils # (Auto) 3.8, Lymphocytes # (Auto) 0.6L, Monocytes # (Auto) 0.5, Eosinophils # (Auto) 0.0, Basophils # (Auto) 0.1, Nucleated Red Blood Cells % (auto) 0.0, Anion Gap 10, Glomerular Filtration Rate > 60.0, Lactic Acid Level 2.0, Calcium Level 8.5, Aspartate Amino Transf (AST/SGOT) 39H, Alanine Aminotransferase (ALT/SGPT) 32, Alkaline Phosphatase 377H, Total Bilirubin 2.7H, Direct Bilirubin 1.8H, Total Creatine Kinase 82, Creatine Kinase MB 1.2, Creatine Kinase MB Relative Index 1.46, Troponin I < 0.02, MI-Spv-Q-Type Natriuretic Peptide 4037H, Total Protein 6.4, Albumin 3.1L, Albumin/Globulin Ratio 0.94L, Thyroid Stimulating Hormone (TSH) 6.890H 10/20/18 04:53: Nucleated Red Blood Cells % (auto) 0.0, Anion Gap 8, Glomerular Filtration Rate > 60.0, Calcium Level 8.3L, Aspartate Amino Transf (AST/SGOT) 28, Alanine Aminotransferase (ALT/SGPT) 27, Alkaline Phosphatase 360H, Total Bilirubin 2.4H, Total Protein 6.3L, Albumin 2.8L, Albumin/Globulin Ratio 0.80L, Blood Urea Nitrogen 17, Creatinine 1.06, Sodium Level 140, Potassium Level 3.2L, Chloride Level 102, Carbon Dioxide Level 30 CBC/BMP Laboratory Tests 10/19/18 18:00 Red Blood Count 5.26, Mean Corpuscular Volume 81.6, Mean Corpuscular Hemoglobin 25.5 L, Mean Corpuscular Hemoglobin Concent 31.2 L, Red Cell Distribution Width 20.2 H, Neutrophils (%) (Auto) 76.6 H, Lymphocytes (%) (Auto) 11.9 L, Monocytes (%) (Auto) 9.7 H, Eosinophils (%) (Auto) 0.4, Basophils (%) (Auto) 1.0, Neutrophils # (Auto) 3.8, Lymphocytes # (Auto) 0.6 L, Monocytes # (Auto) 0.5, Eosinophils # (Auto) 0.0, Basophils # (Auto) 0.1 10/20/18 04:53 Red Blood Count 5.25, Mean Corpuscular Volume 79.6 L, Mean Corpuscular Hemoglobin 25.0 L, Mean Corpuscular Hemoglobin Concent 31.3 L, Red Cell Distribution Width 20.6 H, Calcium Level 8.3 L, Aspartate Amino Transf (AST/SGOT) 28, Alanine Aminotransferase (ALT/SGPT) 27, Alkaline Phosphatase 360 H, Total Bilirubin 2.4 H, Total Protein 6.3 L, Albumin 2.8 L PRICE PACKER MD Oct 20, 2018 13:09
[2018-10-20] MEDS: ENTRESTO 24-26MG TABLET (SACUBITRIL/VALSARTAN) PO SCH (20:43)
[2018-10-20] MEDS: METOPROLOL TART 12.5 MG PER 1/2 TAB PO SCH (20:45)
[2018-10-21] MEDS: FUROSEMIDE 40 MG/4 ML VIAL (J1940) IV SCH ×4 (00:19→20:59)
[2018-10-21 04:00] VITALS: BP 119/76
[2018-10-21 05:49] LABS: HEMATOCRIT 44.5 % (42.0-52.0); HEMOGLOBIN 13.7 g/dl (13.5-17.5); MEAN CORPUSCULAR HEMOGLOBIN 24.8 pg (27.0-33.0); MEAN CORPUSCULAR HGB CONC 30.8 g/dl (32.0-36.5); MEAN CORPUSCULAR VOLUME 80.5 fl (80.0-96.0); PLATELET COUNT, AUTOMATED 279 10^3/uL (150-450); RED BLOOD COUNT 5.53 10^6/uL (4.30-6.10); WHITE BLOOD COUNT 5.6 10^3/uL (4.0-10.0)
[2018-10-21] MEDS: HEPARIN SOD (PORCINE) 5000 UNITS/ML VIAL SQ SCH ×3 (06:00→21:00)
[2018-10-21 06:22] LABS: ALT/SGPT 29 U/L (12-78); BILIRUBIN,TOTAL 2.4 MG/DL (0.2-1.0); BLOOD UREA NITROGEN 15 MG/DL (7-18); CALCIUM LEVEL 8.2 MG/DL (8.5-10.1); CARBON DIOXIDE LEVEL 32 MEQ/L (21-32); CHLORIDE LEVEL 103 MEQ/L (98-107); CREATININE FOR GFR 1.01 MG/DL (0.70-1.30); GLOMERULAR FILTRATION RATE > 60.0 (>60); GLUCOSE, FASTING 74 MG/DL (70-100); POTASSIUM SERUM 3.3 MEQ/L (3.5-5.1); SODIUM LEVEL 141 MEQ/L (136-145); TOTAL PROTEIN 6.7 GM/DL (6.4-8.2)
[2018-10-21 08:00] VITALS: BP 109/70
[2018-10-21] MEDS: ASPIRIN ENTERIC 325 MG TAB PO SCH (08:31)
[2018-10-21] MEDS: ENTRESTO 24-26MG TABLET (SACUBITRIL/VALSARTAN) PO SCH ×2 (08:31→20:59)
[2018-10-21] MEDS: METOPROLOL TART 12.5 MG PER 1/2 TAB PO SCH ×2 (08:32→21:00)
[2018-10-21] MEDS: POTASSIUM CHLORIDE 10 MEQ SR TABLET PO SCH ×2 (08:32→21:00)
[2018-10-21 11:57] VITALS: BP 116/76
--- NOTE | 2018-10-21 14:34 | IPNPDOC ---
Date Seen The patient was seen on 10/21/18. Progress Note SUBJECTIVE: Patient reported feeling fine today. Did not get all of his Lasix yesterday due to borderline hypotension. Negative 1L. OBJECTIVE PHYSICAL EXAMINATION: VITAL SIGNS: Please see below. General: Alert, labored breathing, mild distress. Eyes: Normal sclera, EOMI, EZEKIEL HENT: Atraumatic, neck supple, moist mucous membranes Cardiovascular: Normal rate. 1+ pitting edema b/l. Pulmonary: Minimal crackles b/l lower lung bases. GI: Soft, nontender, nondistended Skin: Warm and dry Neuro: CN grossly intact. No focal deficits. Strengths equal b/l. Psych: oriented x 3 LABORATORY DATA, IMAGING STUDIES, MICROBIOLOGY: Please see below. DVT prophylaxis ordered?: Los ASSESSMENT AND PLAN: 1. Decompensated combine HF - Poor function at baseline, EF 10-15%. - Clinically improving, continue with diuresis. Lasix 40 IV q8 at this time. Monitor daily weights, I/O, fluid restriction. - c/w Entresto, patient already has supplies at home. 2. hx alcohol abuse: >1 year since last drink. 3. hx pulmonary hypertension. DISPOSITION: Home once stable. VS, I&O, 24H, Fishbone Vital Signs/I&O Vital Signs Date Time Temp Pulse Resp B/P (MAP) Pulse Ox O2 Delivery O2 Flow Rate FiO2 10/21/18 11:57 98.1 64 18 116/76 (89) 98 2.0 10/19/18 18:00 Nasal Cannula I&O- Last 24 Hours up to 6 AM 10/21/18 06:00 Intake Total 700 ml Output Total 1530 ml Balance -830 ml Laboratory Data 24H LABS Laboratory Tests 2 10/21/18 05:33: Nucleated Red Blood Cells % (auto) 0.0, Anion Gap 6L, Glomerular Filtration Rate > 60.0, Blood Urea Nitrogen 15, Creatinine 1.01, Sodium Level 141, Potassium Level 3.3L, Chloride Level 103, Carbon Dioxide Level 32, Calcium Level 8.2L, Aspartate Amino Transf (AST/SGOT) 32, Alanine Aminotransferase (ALT/SGPT) 29, Alkaline Phosphatase 395H, Total Bilirubin 2.4H, Total Protein 6.7, Albumin 3.0L, Albumin/Globulin Ratio 0.81L CBC/BMP Laboratory Tests 10/21/18 05:33 Red Blood Count 5.53, Mean Corpuscular Volume 80.5, Mean Corpuscular Hemoglobin 24.8 L, Mean Corpuscular Hemoglobin Concent 30.8 L, Red Cell Distribution Width 20.7 H, Calcium Level 8.2 L, Aspartate Amino Transf (AST/SGOT) 32, Alanine Aminotransferase (ALT/SGPT) 29, Alkaline Phosphatase 395 H, Total Bilirubin 2.4 H, Total Protein 6.7, Albumin 3.0 L PRICE PACKER MD Oct 21, 2018 14:34
[2018-10-21 16:00] VITALS: BP 103/67
[2018-10-21 20:00] VITALS: BP 119/78
[2018-10-21 23:59] VITALS: BP 105/66
[2018-10-22 04:00] VITALS: BP 115/72
[2018-10-22] MEDS: FUROSEMIDE 40 MG/4 ML VIAL (J1940) IV SCH (04:51)
[2018-10-22] MEDS: HEPARIN SOD (PORCINE) 5000 UNITS/ML VIAL SQ SCH (05:30)
[2018-10-22 06:14] LABS: HEMATOCRIT 43.6 % (42.0-52.0); HEMOGLOBIN 13.4 g/dl (13.5-17.5); MEAN CORPUSCULAR HEMOGLOBIN 24.7 pg (27.0-33.0); MEAN CORPUSCULAR HGB CONC 30.7 g/dl (32.0-36.5); MEAN CORPUSCULAR VOLUME 80.4 fl (80.0-96.0); PLATELET COUNT, AUTOMATED 270 10^3/uL (150-450); RED BLOOD COUNT 5.42 10^6/uL (4.30-6.10); WHITE BLOOD COUNT 5.1 10^3/uL (4.0-10.0)
[2018-10-22 06:54] LABS: ALT/SGPT 34 U/L (12-78); BILIRUBIN,TOTAL 2.6 MG/DL (0.2-1.0); BLOOD UREA NITROGEN 13 MG/DL (7-18); CALCIUM LEVEL 8.5 MG/DL (8.5-10.1); CARBON DIOXIDE LEVEL 31 MEQ/L (21-32); CHLORIDE LEVEL 104 MEQ/L (98-107); CREATININE FOR GFR 0.94 MG/DL (0.70-1.30); GLOMERULAR FILTRATION RATE > 60.0 (>60); GLUCOSE, FASTING 80 MG/DL (70-100); POTASSIUM SERUM 4.4 MEQ/L (3.5-5.1); SODIUM LEVEL 142 MEQ/L (136-145); TOTAL PROTEIN 6.4 GM/DL (6.4-8.2)
[2018-10-22 08:00] VITALS: BP 110/71
[2018-10-22] MEDS: POTASSIUM CHLORIDE 10 MEQ SR TABLET PO SCH (08:24)
[2018-10-22] MEDS: ENTRESTO 24-26MG TABLET (SACUBITRIL/VALSARTAN) PO SCH (08:24)
[2018-10-22 08:25] VITALS: BP 110/71
[2018-10-22] MEDS: METOPROLOL TART 12.5 MG PER 1/2 TAB PO SCH (08:25)
[2018-10-22] MEDS: ASPIRIN ENTERIC 325 MG TAB PO SCH (08:25)
[2018-10-22] MEDS ORDERED: ENTR1TAB PO (09:12)
--- NOTE | 2018-10-22 09:19 | DS.PDOC ---
Discharge Summary General Date of Admission Oct 19, 2018 at 20:11 Date of Discharge 10/22/18 Discharge Summary PROCEDURES PERFORMED DURING STAY: [None]. ADMITTING DIAGNOSES: 1. Decompensated combine systolic and diastolic HF 2. Nicotine addiction 3. Pulmonary HTN DISCHARGE DIAGNOSES: 1. Decompensated combine systolic and diastolic HF 2. Nicotine addiction 3. Pulmonary HTN COMPLICATIONS/CHIEF COMPLAINT: Chf Exacerbation. HISTORY OF PRESENT ILLNESS: "Patient is a 47 year old male presenting with chief complaint of shortness of breath for the past 1-2 weeks. He presents stating he presented to the emergency department today after he was unable to stand up and go to the bathroom without becoming short of breath. He has a history of CHF with hospitalizations in the past at [facility] and follows with Dr. Duff. In the room he and his stated that he took his medications every day, however on speaking to the medical and health services manager she discovered that he had been obtaining samples of his Entresto and has not taken that medication in at least the last month due to difficulties getting this medication through his insurance. " HOSPITAL COURSE: Patient was diuresed with rapid improvement in symptoms. Had been off of the Entresto due to supply problems but did receive more samples from [employer] and currently has it at home. Stated that he is back to his baseline functional/breathing status with improvement in swelling as well. Denies any complaints. To discharge patient to f/u with photo stylist and establish PMD. His PMD reported retired and doesnt have one at the moment. To resume Entresto supply he has at home, not sent to pharmacy as patient does not get it from there. DISCHARGE MEDICATIONS: Please see below. ALLERGIES: Please see below. PHYSICAL EXAMINATION ON DISCHARGE: VITAL SIGNS: Please see below. General: Alert, mild labored breathing. Eyes: Normal sclera, EOMI, EZEKIEL HENT: Atraumatic, neck supple, moist mucous membranes Cardiovascular: Normal rate. 1+ pitting edema b/l. Pulmonary: Minimal crackles b/l lower lung bases. GI: Soft, nontender, nondistended Skin: Warm and dry Neuro: CN grossly intact. No focal deficits. Strengths equal b/l. Psych: oriented x 3 LABORATORY DATA: Please see below. IMAGING: CXR- Impression: Stable cardiomegaly and stable chronic changes. No focal consolidation or effusion. ACTIVITY: [As tolerated]. DIET: Regular DISCHARGE PLAN: Establish care for PMD to follow up within 1-2 weeks f/u photo stylist within 1-2 weeks Resume entresto DISPOSITION: home. DISCHARGE INSTRUCTIONS: Establish care for PMD to follow up within 1-2 weeks f/u photo stylist within 1-2 weeks Resume entresto ITEMS TO FOLLOWUP ON ON OUTPATIENT: 1. None DISCHARGE CONDITION: [Stable]. TIME SPENT ON DISCHARGE: 32 minutes. Vital Signs/I&Os Vital Signs Date Time Temp Pulse Resp B/P (MAP) Pulse Ox O2 Delivery O2 Flow Rate FiO2 10/22/18 08:25 80 110/71 10/22/18 08:00 97.6 18 93 10/21/18 20:00 2.0 10/19/18 18:00 Nasal Cannula I&O- Last 24 Hours up to 6 AM 10/22/18 06:00 Intake Total 660 ml Output Total 2525 ml Balance -1865 ml Laboratory Data Labs 24H Laboratory Tests 2 10/22/18 05:34: Nucleated Red Blood Cells % (auto) 0.0, Anion Gap 7L, Glomerular Filtration Rate > 60.0, Blood Urea Nitrogen 13, Creatinine 0.94, Sodium Level 142, Potassium Level 4.4#, Chloride Level 104, Carbon Dioxide Level 31, Calcium Level 8.5, Aspartate Amino Transf (AST/SGOT) 61H, Alanine Aminotransferase (ALT/SGPT) 34, Alkaline Phosphatase 377H, Total Bilirubin 2.6H, Total Protein 6.4, Albumin 3.0L, Albumin/Globulin Ratio 0.88L CBC/BMP Laboratory Tests 10/22/18 05:34 Red Blood Count 5.42, Mean Corpuscular Volume 80.4, Mean Corpuscular Hemoglobin 24.7 L, Mean Corpuscular Hemoglobin Concent 30.7 L, Red Cell Distribution Width 21.1 H, Calcium Level 8.5, Aspartate Amino Transf (AST/SGOT) 61 H, Alanine Aminotransferase (ALT/SGPT) 34, Alkaline Phosphatase 377 H, Total Bilirubin 2.6 H, Total Protein 6.4, Albumin 3.0 L Discharge Medications Scheduled Aspirin (Aspirin EC) 325 Mg Tab, 325 MG PO DAILY, (Reported) Furosemide (Furosemide) 80 Mg Tablet, 80 MG PO BID, (Reported) Metoprolol Tartrate (Metoprolol Tartrate) 25 Mg Tablet, 12.5 MG PO BID, (Reported) Multivitamin (Multivitamins) 1 Each Capsule, 1 CAP PO DAILY, (Reported) Sacubitril/Valsartan (Entresto 24 mg-26 mg Tablet) 1 Each Tablet, 1 TAB PO BID Allergies Coded Allergies: spironolactone (Verified Allergy, Mild, SWELLING, 06/05/18) PRICE PACKER MD Oct 22, 2018 09:19
== END 2018-10-22 10:50 | disposition home or self-care (01) | DRG 194 ==
LOC: M ED 17:25 → M ED INP 20:11 → M PCU 20:59
PROVIDERS: ADMIT Internal Medicine Nephrology; ATTEND Student in an Organized Health Care Education/Training Program
DX: I50.41 Acute combined systolic (congestive) and diastolic (congestive) heart failure (principal); I27.20 Pulmonary hypertension, unspecified; F17.200 Nicotine dependence, unspecified, uncomplicated; Z79.82 Long term (current) use of aspirin; Z79.899 Other long term (current) drug therapy; Z88.8 Allergy status to other drugs, medicaments and biological substances

== ENCOUNTER 2018-11-01 19:13 | Emergency (ER) | payer OTHER ==
[~2018-11-01] VITALS: Ht 170.2 cm; Wt 105.2 kg
[~2018-11-01 19:13] MED LIST changes: -ASPI-222 PO; +ASPI-527 PO
[2018-11-01 19:51] LABS: BASO # 0.1 10^3/uL (0.0-0.2); BASO % 1.3 % (0.0-1.0); EOS # 0.1 10^3/uL (0.0-0.5); EOS % 1.3 % (0.0-3.0); HEMATOCRIT 44.6 % (42.0-52.0); HEMOGLOBIN 13.7 g/dl (13.5-17.5); LYMPH # 0.8 10^3/uL (1.5-5.0); MEAN CORPUSCULAR HEMOGLOBIN 25.8 pg (27.0-33.0); MEAN CORPUSCULAR HGB CONC 30.7 g/dl (32.0-36.5); MONO # 0.5 10^3/uL (0.0-0.8); MONO % 11.6 % (0.0-5.0); NEUTROPHILS % 67.6 % (36.0-66.0); PLATELET COUNT, AUTOMATED 230 10^3/uL (150-450); RED BLOOD COUNT 5.31 10^6/uL (4.30-6.10); WHITE BLOOD COUNT 4.5 10^3/uL (4.0-10.0)
[2018-11-01 20:14] LABS: ALT/SGPT 34 U/L (12-78); BILIRUBIN,DIRECT 1.5 MG/DL (0.0-0.2); BILIRUBIN,TOTAL 1.9 MG/DL (0.2-1.0); BLOOD UREA NITROGEN 20 MG/DL (7-18); CALCIUM LEVEL 8.7 MG/DL (8.5-10.1); CARBON DIOXIDE LEVEL 32 MEQ/L (21-32); CHLORIDE LEVEL 103 MEQ/L (98-107); CREATININE FOR GFR 1.09 MG/DL (0.70-1.30); GLOMERULAR FILTRATION RATE > 60.0 (>60); GLUCOSE, FASTING 89 MG/DL (70-100); LIPASE 160 U/L (73-393); SODIUM LEVEL 143 MEQ/L (136-145); TOTAL PROTEIN 6.5 GM/DL (6.4-8.2)
[2018-11-01] MEDS ORDERED: ISOVUE-370 76% 100ML VIAL (Q9967) As Ordered ONE (20:50)
--- NOTE | 2018-11-01 22:47 | REPVR ---
EXAM: CT Abdomen and Pelvis With Contrast EXAM DATE/TIME: 11/01/2018 8:59 PM CLINICAL HISTORY: 47 years old, male; Abdominal pain; Localized; Lower; Additional info: B/l lower abd pain TECHNIQUE: Imaging protocol: Computed tomography of the abdomen and pelvis with intravenous contrast. Radiation optimization: All CT scans at this facility use at least one of these dose optimization techniques: automated exposure control; mA and/or kV adjustment per patient size (includes targeted exams where dose is matched to clinical indication); or iterative reconstruction. Contrast material: ISOVUE 370; Contrast volume: 100 ml; Contrast route: IV; COMPARISON: CT ABD PELVIS WITH CONTRAST 12/07/2016 6:00 PM FINDINGS: Lungs: Ground glass densities of bilateral lungs representing edema. Heart: Cardiomegaly. Liver: Normal. No mass. Gallbladder and bile ducts: Contracted gallbladder. Pancreas: Atophic pancreas. Spleen: Spleenic granuloma. No splenomegaly. Adrenals: Normal. No mass. Kidneys and ureters: Normal. No hydronephrosis. Stomach and bowel: Mild thickening of small bowel secondary to inflammation , infection or hypoprotieniemia. No obstruction. Appendix: No evidence of appendicitis. Intraperitoneal space: Ascites. Vasculature: Unremarkable. No abdominal aortic aneurysm. Lymph nodes: 14.8 mm in the right inguinal rgion. Bladder: Unremarkable as visualized. Reproductive: Prostate gland calcification. High rididng right testicle in the inguinal region. Moderate bilateral hydroceles. Bones/joints: Degenarate disease. Soft tissues: Diffuse marked anasarca. Other findings: Mesentric edema. IMPRESSION: Mild thickening of small bowel secondary to inflammation , infection or hypoprotieniemia. No obstruction. High rididng right testicle in the inguinal region. Moderate bilateral hydroceles. Diffuse marked anasarca. Mesentric edema. Electronically signed by: Christy Smith On 11/01/2018 22:47:04 PM
[2018-11-01] MEDS ORDERED: FUROSEMIDE 100 MG/10 ML VIAL (J1940) IV ONE (23:45)
--- NOTE | 2018-11-02 01:53 | REPVR ---
EXAM: US Scrotum EXAM DATE/TIME: 11/02/2018 12:24 AM CLINICAL HISTORY: 48 years old, male; Edema; Additional info: Scrotal swelling, high riding right TECHNIQUE: Imaging protocol: Real-time ultrasound of the scrotum and contents with color Doppler and image documentation. COMPARISON: No relevant prior studies available. FINDINGS: Right Testicle: Right testis is unremarkable measuring 5.0 x 2.7 x 2.8 cm.No mass. No torsion. Normal vascular flow. Left Testicle: Left testis is unremarkable measuring 5.0 x 2.9 x 2.8 cm. No mass. No torsion. Normal vascular flow. Epididymides: Right epididymal head is lying inferior and medial displacement of the right testis by fluid collection/edema measuring up to 12 mm. Hypervascular right epididymal head as compared to the left may represent epididymitis. Left epididymal head is unremarkable measuring 4.0 cm. Scrotum: Significant scrotal edema. Questionable fluid collections measured by technologists appears to be significant edema/phlegmon without any full collection or an abscess formation. On the right area of phlegmon is measuring approximately 0.3 x 4.8 x 3.9 cm and on the left left measuring 9.0 x 4.4 x 3.4 cm. On compression areas of swelling appears to be mobile. Clinical correlation is recommended. IMPRESSION: Bilateral testicles unremarkable. Right epididymitis. Significant scrotal edema. Questionable fluid collections measured by technologists appears to be significant edema/phlegmon without any full collection or an abscess formation. On the right area of phlegmon is measuring approximately 0.3 x 4.8 x 3.9 cm and on the left left measuring 9.0 x 4.4 x 3.4 cm. On compression areas of swelling appears to be mobile. Clinical correlation is recommended. Electronically signed by: Christy Smith On 11/02/2018 01:52:47 AM
[2018-11-02 02:09] VITALS: BP 120/77
--- NOTE | 2018-11-06 11:52 | ED PDOC ---
Post-Departure Follow-Up sarah castellon faxed formal report of scrotal us and ct abd/p for fu Dejuan Reza MD Nov 06, 2018 11:52
== END 2018-11-02 02:09 | disposition home or self-care (01) ==
LOC: M ED 19:13
DX: R10.9 Unspecified abdominal pain (principal); R18.8 Other ascites; N50.89 Other specified disorders of the male genital organs; I11.9 Hypertensive heart disease without heart failure; I25.10 Atherosclerotic heart disease of native coronary artery without angina pectoris; I50.9 Heart failure, unspecified; Z95.0 Presence of cardiac pacemaker; F17.210 Nicotine dependence, cigarettes, uncomplicated; Z88.8 Allergy status to other drugs, medicaments and biological substances; Z79.82 Long term (current) use of aspirin
CPT/HCPCS: 36415; 74177; 76870; 80048; 80076; 81001; 83690; 85025; 86140; 87040; 93976; 99284; J1940; Q9967

== ENCOUNTER 2021-12-22 13:06 | Inpatient (IN) | payer MEDICARE, OTHER, SELFPAY ==
[~2021-12-22] VITALS: Ht 175.3 cm; Wt 192.0 kg
[2021-12-22] VITALS (16 sets, daily range): BP systolic 81–134; BP diastolic 44–99
[~2021-12-22 13:06] MED LIST changes: -DIGO0.12 PO; +DIGO0.123 PO; -LISI-1046 PO; -LISI2.5T76 PO; +LISI2.5T8 PO; +LISI2.5T9 PO
[2021-12-22 15:43] LABS: BASO % 0.5 % (0.0-1.0); HEMATOCRIT 50.8 % (42.0-52.0); HEMOGLOBIN 16.1 g/dl (13.5-17.5); LYMPH # 0.4 10^3/uL (1.5-5.0); LYMPH % 5.6 % (24.0-44.0); MEAN CORPUSCULAR HEMOGLOBIN 26.1 pg (27.0-33.0); MEAN CORPUSCULAR HGB CONC 31.7 g/dl (32.0-36.5); MEAN CORPUSCULAR VOLUME 82.2 fl (80.0-96.0); MONO # 0.7 10^3/uL (0.0-0.8); MONO % 11.3 % (2.0-8.0); NEUTROPHILS # 5.4 10^3/uL (1.5-8.5); NEUTROPHILS % 81.8 % (36.0-66.0); PLATELET COUNT, AUTOMATED 227 10^3/uL (150-450); RED BLOOD COUNT 6.18 10^6/uL (4.30-6.10); WHITE BLOOD COUNT 6.6 10^3/uL (4.0-10.0)
[2021-12-22] MEDS: IPRATROPIUM 0.5MG/ALBUTEROL 2.5MG INH SOL UD 3ML (DUONEB) NEB PRN ×3 (15:56→16:33)
[2021-12-22] MEDS ORDERED: cefTRIAXone SOD 2 GM in D5W MINI-BAG PLUS 50 ML IV ONE (16:35)
[2021-12-22] MEDS ORDERED: NOREPINEPHRINE 4MG IN D5 250ML 4 MG in IV 1 EA IV SCH ×4 (16:35→18:10)
[2021-12-22 16:37] LABS: CK-MB VALUE MASS < 1.0 NG/ML (<3.6); CPK CREATINE PHOSPHOKINASE 55 U/L (39-308); MB/CK RELATIVE INDEX 1.82 (< OR =4)
[2021-12-22 16:45] LABS: ALBUMIN 2.6 GM/DL (3.2-5.2); BILIRUBIN,DIRECT 3.9 MG/DL (0.0-0.2); BILIRUBIN,TOTAL 6.5 MG/DL (0.2-1.0); CALCIUM LEVEL 8.5 MG/DL (8.5-10.1); CREATININE FOR GFR 2.33 MG/DL (0.70-1.30); GLOMERULAR FILTRATION RATE 31.4 (>56); POTASSIUM SERUM 4.6 MEQ/L (3.5-5.1); TOTAL PROTEIN 6.2 GM/DL (6.4-8.2)
[2021-12-22] MEDS ORDERED: ALBUTEROL SULFATE 2.5 MG/0.5 ML INH NEB SOLN NEB PRN (18:10)
[2021-12-22] MEDS ORDERED: LR 1,000 ML IV ONE (18:10)
[2021-12-22] MEDS ORDERED: ENTR1TAB7 PO (18:16)
[2021-12-22] MEDS ORDERED: ASPI81TA26 PO (18:16)
[2021-12-22] MEDS ORDERED: METO25TA PO (18:16)
[2021-12-22] MEDS ORDERED: HOME MED LIST COMPLETE! XX SCH (18:20)
[2021-12-22] MEDS: HYDROCORTISONE 100 MG/2 ML VIAL (J1720 PER 1) IV SCH (18:42)
[2021-12-22] MEDS: AZITHROMYCIN INJ 500 MG, VIAL MATE ADAPTER 1 EACH in NS 250 ML IV SCH (21:05)
[2021-12-22] MEDS: VASOPRESSIN INJ 20 UNITS in NS 499 ML IV SCH (21:06)
[2021-12-22] MEDS ORDERED: LORazepam 2 MG TAB PO PRN (21:30)
[2021-12-22] MEDS: BENZONATATE 100MG CAPSULE PO PRN (21:49)
[2021-12-22] MEDS: THIAMINE 100 MG TAB PO SCH (21:49)
[2021-12-22] MEDS: HEPARIN SOD (PORCINE) 5000UNITS/ML 1ML VIAL/SYRINGE SC SCH (21:50)
[2021-12-22] MEDS: NOREPINEPHRINE 4MG IN D5 250ML 4 MG in IV 1 EA IV SCH ×2 (23:43)
[2021-12-23] VITALS (94 sets, daily range): BP systolic 71–154; BP diastolic 50–95
[2021-12-23] MEDS: HYDROCORTISONE 100 MG/2 ML VIAL (J1720 PER 1) IV SCH ×3 (03:28→18:15)
[2021-12-23] MEDS: VASOPRESSIN INJ 20 UNITS in NS 499 ML IV SCH ×3 (04:22→19:50)
[2021-12-23 05:30] LABS: HEMATOCRIT 48.7 % (42.0-52.0); HEMOGLOBIN 15.5 g/dl (13.5-17.5); MEAN CORPUSCULAR HEMOGLOBIN 26.2 pg (27.0-33.0); MEAN CORPUSCULAR HGB CONC 31.8 g/dl (32.0-36.5); MEAN CORPUSCULAR VOLUME 82.4 fl (80.0-96.0); PLATELET COUNT, AUTOMATED 228 10^3/uL (150-450); RED BLOOD COUNT 5.91 10^6/uL (4.30-6.10); WHITE BLOOD COUNT 7.6 10^3/uL (4.0-10.0)
[2021-12-23] MEDS: HEPARIN SOD (PORCINE) 5000UNITS/ML 1ML VIAL/SYRINGE SC SCH ×3 (06:00→22:29)
[2021-12-23 06:02] LABS: ALBUMIN 2.7 GM/DL (3.2-5.2); BILIRUBIN,TOTAL 6.9 MG/DL (0.2-1.0); CALCIUM LEVEL 8.1 MG/DL (8.5-10.1); CREATININE FOR GFR 2.2 MG/DL (0.70-1.30); GLOMERULAR FILTRATION RATE 33.5 (>56); POTASSIUM SERUM 3.8 MEQ/L (3.5-5.1); TOTAL PROTEIN 6.1 GM/DL (6.4-8.2)
[2021-12-23 06:19] LABS: LYMPHOCYTES 5 % (16-44); MONOCYTES 3 % (0-5); NEUTROPHILS 92 % (28-66); PLATELET ESTIMATE NORMAL (NORMAL)
[2021-12-23 06:20] LABS: ANISOCYTOSIS 2+
[2021-12-23 07:29] LABS: VENOUS BASE EXCESS -3.8 (-2.0-2.0); VENOUS HCO3 21.8 MEQ/L (23.0-27.0); VENOUS O2 SATURATION 98.6 % (60.0-80.0); VENOUS PARTIAL PRESSURE CO2 41.6 mmHg (38.0-50.0); VENOUS PARTIAL PRESSURE O2 116.8 mmHg (30.0-50.0); VENOUS PH 7.337 UNITS (7.330-7.430); VENOUS STANDARD HCO3 21.4 MEQ/L; VENOUS TOTAL CO2 23.1 MEQ/L (24.0-28.0)
[2021-12-23] MEDS: NOREPINEPHRINE 4MG IN D5 250ML 4 MG in IV 1 EA IV SCH ×2 (07:56)
[2021-12-23] MEDS ORDERED: NS 1,000 ML IV ONE (08:15)
[2021-12-23] MEDS ORDERED: LIDOCAINE 1% MDV 20ML VIAL As Ordered ONE (08:17)
[2021-12-23] MEDS: PANTOPRAZOLE 40MG VIAL IV SCH (08:53)
[2021-12-23] MEDS: THIAMINE 100 MG TAB PO SCH ×2 (08:53→20:15)
[2021-12-23] MEDS: MULTIVITAMINS/MINERALS THERAP 1 TAB PO SCH (08:53)
[2021-12-23] MEDS: FOLIC ACID 1MG TAB PO SCH (08:53)
[2021-12-23] MEDS ORDERED: PIPERACILLIN/TAZOBACTAM SOD 2.25 GM in D5W MINI-BAG PLUS 50 ML IV SCH (09:05)
[2021-12-23] MEDS: PIPERACILLIN/TAZOBACTAM SOD 4.5 GM in D5W MINI-BAG PLUS 50 ML IV SCH ×3 (11:17→22:27)
[2021-12-23] MEDS ORDERED: SODIUM CHLORIDE 0.9% INJ 10 ML SYR IV PRN (14:20)
[2021-12-23] MEDS ORDERED: cefTRIAXone SOD 1 GM in D5W MINI-BAG PLUS 50 ML IV SCH (17:00)
[2021-12-23] MEDS: SODIUM CHLORIDE 0.9% INJ 10 ML SYR IV SCH (17:31)
[2021-12-23] MEDS: AZITHROMYCIN INJ 500 MG, VIAL MATE ADAPTER 1 EACH in NS 250 ML IV SCH (20:14)
[2021-12-23] MEDS: BENZONATATE 100MG CAPSULE PO PRN (22:26)
[2021-12-24] VITALS (18 sets, daily range): BP systolic 76–103; BP diastolic 42–66
[2021-12-24] MEDS: HYDROCORTISONE 100 MG/2 ML VIAL (J1720 PER 1) IV SCH ×2 (03:41→20:43)
[2021-12-24] MEDS: VASOPRESSIN INJ 20 UNITS in NS 499 ML IV SCH (04:10)
[2021-12-24] MEDS: PIPERACILLIN/TAZOBACTAM SOD 4.5 GM in D5W MINI-BAG PLUS 50 ML IV SCH ×4 (04:46→22:39)
[2021-12-24 05:10] LABS: HEMATOCRIT 43.9 % (42.0-52.0); HEMOGLOBIN 14.3 g/dl (13.5-17.5); MEAN CORPUSCULAR HEMOGLOBIN 26.5 pg (27.0-33.0); MEAN CORPUSCULAR HGB CONC 32.6 g/dl (32.0-36.5); MEAN CORPUSCULAR VOLUME 81.3 fl (80.0-96.0); PLATELET COUNT, AUTOMATED 182 10^3/uL (150-450); WHITE BLOOD COUNT 5.3 10^3/uL (4.0-10.0)
[2021-12-24] MEDS: HEPARIN SOD (PORCINE) 5000UNITS/ML 1ML VIAL/SYRINGE SC SCH ×3 (05:27→21:40)
[2021-12-24] MEDS: SODIUM CHLORIDE 0.9% INJ 10 ML SYR IV SCH ×2 (05:27→17:38)
[2021-12-24 05:58] LABS: ALBUMIN 2.5 GM/DL (3.2-5.2); BILIRUBIN,TOTAL 4.3 MG/DL (0.2-1.0); CALCIUM LEVEL 8.1 MG/DL (8.5-10.1); CREATININE FOR GFR 1.54 MG/DL (0.70-1.30); GLOMERULAR FILTRATION RATE 50.6 (>56); POTASSIUM SERUM 3.4 MEQ/L (3.5-5.1); THYROID STIMULATING HORMONE 1.52 uIU/ML (0.358-3.740); TOTAL PROTEIN 5.6 GM/DL (6.4-8.2)
[2021-12-24 06:00] LABS: ABG BASE EXCESS -1.3 (-2.0-2.0); ABG HCO3 23.7 MEQ/L (22.0-26.0); ABG O2 SATURATION 92.4 % (95.0-99.0); ABG PARTIAL PRESSURE CO2 40.9 mmHg (35.0-45.0); ABG PARTIAL PRESSURE O2 65.2 mmHg (75.0-100.0); ABG STANDARD HCO3 23.3 MEQ/L (22.0-26.0); ABG pH (ARTERIAL) 7.381 UNITS (7.350-7.450)
[2021-12-24] MEDS ORDERED: POTASSIUM CHLORIDE 10MEQ SR TABLET PO ONE (07:25)
[2021-12-24] MEDS: THIAMINE 100 MG TAB PO SCH ×2 (08:12→20:43)
[2021-12-24] MEDS: PANTOPRAZOLE 40MG VIAL IV SCH (08:12)
[2021-12-24] MEDS: FOLIC ACID 1MG TAB PO SCH (08:12)
[2021-12-24] MEDS: MULTIVITAMINS/MINERALS THERAP 1 TAB PO SCH (08:12)
[2021-12-24] MEDS: AZITHROMYCIN INJ 500 MG, VIAL MATE ADAPTER 1 EACH in NS 250 ML IV SCH (20:43)
[2021-12-25] VITALS: BP 95/53
[2021-12-25 02:14] VITALS: BP 101/63
[2021-12-25 04:00] VITALS: BP 113/66
[2021-12-25] MEDS: HEPARIN SOD (PORCINE) 5000UNITS/ML 1ML VIAL/SYRINGE SC SCH (05:49)
[2021-12-25] MEDS: SODIUM CHLORIDE 0.9% INJ 10 ML SYR IV SCH (05:50)
[2021-12-25] MEDS: PIPERACILLIN/TAZOBACTAM SOD 4.5 GM in D5W MINI-BAG PLUS 50 ML IV SCH ×2 (05:50→11:00)
[2021-12-25 06:24] LABS: HEMATOCRIT 47.6 % (42.0-52.0); HEMOGLOBIN 15.5 g/dl (13.5-17.5); MEAN CORPUSCULAR HEMOGLOBIN 26.5 pg (27.0-33.0); MEAN CORPUSCULAR HGB CONC 32.6 g/dl (32.0-36.5); MEAN CORPUSCULAR VOLUME 81.5 fl (80.0-96.0); PLATELET COUNT, AUTOMATED 204 10^3/uL (150-450); RED BLOOD COUNT 5.84 10^6/uL (4.30-6.10); WHITE BLOOD COUNT 6.4 10^3/uL (4.0-10.0)
[2021-12-25 07:49] LABS: ALBUMIN 2.7 GM/DL (3.2-5.2); BILIRUBIN,TOTAL 3.8 MG/DL (0.2-1.0); CALCIUM LEVEL 8.8 MG/DL (8.5-10.1); CREATININE FOR GFR 1.77 MG/DL (0.70-1.30); GLOMERULAR FILTRATION RATE 43.1 (>56); POTASSIUM SERUM 3.4 MEQ/L (3.5-5.1); TOTAL PROTEIN 6.4 GM/DL (6.4-8.2)
[2021-12-25 08:00] VITALS: BP 125/68
[2021-12-25] MEDS: PANTOPRAZOLE 40MG VIAL IV SCH (08:11)
[2021-12-25] MEDS: THIAMINE 100 MG TAB PO SCH (08:11)
[2021-12-25] MEDS: HYDROCORTISONE 100 MG/2 ML VIAL (J1720 PER 1) IV SCH (08:11)
[2021-12-25] MEDS ORDERED: FUROSEMIDE 80 MG TAB PO SCH (09:00)
[2021-12-25 09:19] LABS: MAGNESIUM LEVEL 2.7 MG/DL (1.8-2.4)
[2021-12-25] MEDS ORDERED: POTASSIUM CHLORIDE 10MEQ SR TABLET PO ONE (09:50)
[2021-12-25] MEDS ORDERED: PRED10TA2 PO (11:04)
[2021-12-25] MEDS ORDERED: PROTPAK PO (11:04)
[2021-12-25] MEDS ORDERED: AMOX875T2 PO (11:04)
[2021-12-25] MEDS ORDERED: THIA100TA PO (11:04)
[2021-12-25] MEDS ORDERED: AZIT-12 PO (11:04)
[2021-12-25] MEDS ORDERED: AZITHROMYCIN 250MG TABLET PO SCH ×2 (20:00→21:00)
== END 2021-12-25 11:40 | disposition left against medical advice (07) | DRG 871 ==
LOC: M ED 13:06 → M ED INP 18:08 → M ICU 20:34 → M PCU 12-25 02:13
PROVIDERS: ADMIT Internal Medicine Critical Care Medicine; ATTEND Internal Medicine
PROC: 02HV33Z Insertion of Infusion Device into Superior Vena Cava, Percutaneous Approach (ICD-10-PCS; principal; 2021-12-23 11:00)
DX: A41.9 Sepsis, unspecified organism (principal); J12.1 Respiratory syncytial virus pneumonia; R57.0 Cardiogenic shock; R65.21 Severe sepsis with septic shock; I42.8 Other cardiomyopathies; N17.9 Acute kidney failure, unspecified; E87.1 Hypo-osmolality and hyponatremia; I50.42 Chronic combined systolic (congestive) and diastolic (congestive) heart failure; I95.9 Hypotension, unspecified; K74.60 Unspecified cirrhosis of liver; Z95.810 Presence of automatic (implantable) cardiac defibrillator; E87.6 Hypokalemia; F10.10 Alcohol abuse, uncomplicated; Z79.899 Other long term (current) drug therapy; Z88.8 Allergy status to other drugs, medicaments and biological substances; Z79.82 Long term (current) use of aspirin; D64.9 Anemia, unspecified; F17.200 Nicotine dependence, unspecified, uncomplicated

== ENCOUNTER 2022-01-11 11:24 | Emergency (ER) | payer MEDICARE ==
[~2022-01-11] VITALS: Ht 170.2 cm; Wt 97.1 kg
[~2022-01-11 11:24] MED LIST changes: +AMOX875T2 PO; +ASPI81TA26 PO; +AZIT-12 PO; +ENTR1TAB7 PO; +PRED10TA2 PO; +PROTPAK PO; +THIA100TA PO
[2022-01-11] MEDS ORDERED: ENTR1TAB7 (11:45)
[2022-01-11 13:28] LABS: BASO % 0.6 % (0.0-1.0); EOS % 0.6 % (0.0-3.0); HEMOGLOBIN 15.8 g/dl (13.5-17.5); LYMPH # 0.6 10^3/uL (1.5-5.0); LYMPH % 12.7 % (24.0-44.0); MEAN CORPUSCULAR HGB CONC 31.6 g/dl (32.0-36.5); MEAN CORPUSCULAR VOLUME 85.3 fl (80.0-96.0); MONO # 0.5 10^3/uL (0.0-0.8); MONO % 10.1 % (2.0-8.0); NEUTROPHILS # 3.5 10^3/uL (1.5-8.5); NEUTROPHILS % 75.4 % (36.0-66.0); PLATELET COUNT, AUTOMATED 172 10^3/uL (150-450); RED BLOOD COUNT 5.86 10^6/uL (4.30-6.10); WHITE BLOOD COUNT 4.6 10^3/uL (4.0-10.0)
[2022-01-11 14:06] LABS: RSV AMPLIFICATION NEGATIVE (NEGATIVE)
[2022-01-11 14:17] LABS: ALBUMIN 3.4 G/DL (3.2-5.2); ALT/SGPT 38 U/L (7.0-40); BILIRUBIN,DIRECT 3.7 MG/DL (<0.4); BILIRUBIN,TOTAL 5.5 MG/DL (0.3-1.2); BLOOD UREA NITROGEN 19 MG/DL (9-23); CALCIUM LEVEL 9.2 MG/DL (8.5-10.1); CARBON DIOXIDE LEVEL 27 MMOL/L (20-31); CHLORIDE LEVEL 96 MMOL/L (98-107); CREATININE FOR GFR 1.09 MG/DL (0.70-1.30); FREE T4 1.37 NG/DL (0.89-1.76); GLOMERULAR FILTRATION RATE > 60.0 (>56); GLUCOSE, FASTING 88 MG/DL (60-100); LIPASE 19 U/L (12-53); SODIUM LEVEL 134 MMOL/L (136-145); THYROID STIMULATING HORMONE 3.719 uIU/ML (0.55-4.78); TOTAL PROTEIN 6.5 G/DL (5.7-8.2)
[2022-01-11] MEDS ORDERED: FUROSEMIDE 40MG/4ML VIAL (J1940) IV ONE (14:45)
[2022-01-11 14:56] LABS: MAGNESIUM LEVEL 1.8 MG/DL (1.8-2.4)
[2022-01-11] MEDS ORDERED: LASI40TA9 PO (15:52)
[2022-01-11 16:38] VITALS: BP 105/72
== END 2022-01-11 16:57 | disposition home or self-care (01) ==
LOC: M ED 11:24
DX: I50.9 Heart failure, unspecified (principal); I11.0 Hypertensive heart disease with heart failure; F10.11 Alcohol abuse, in remission; F17.210 Nicotine dependence, cigarettes, uncomplicated; Z79.82 Long term (current) use of aspirin; Z79.899 Other long term (current) drug therapy; Z88.8 Allergy status to other drugs, medicaments and biological substances; Z95.0 Presence of cardiac pacemaker; Z98.890 Other specified postprocedural states
CPT/HCPCS: 71045; 80048; 80076; 83690; 83735; 83880; 84439; 84443; 85025; 87631; 93005; 93041; 94760; 96374; 99285; J1940

== ENCOUNTER 2022-02-16 13:21 | Emergency (ER) | payer MEDICARE, SELFPAY ==
[~2022-02-16] VITALS: Ht 170.2 cm; Wt 91.4 kg
[~2022-02-16 13:21] MED LIST changes: +ENTR1TAB7
[2022-02-16] MEDS ORDERED: JARD1TAB3 PO (13:40)
[2022-02-16] MEDS ORDERED: DOXYCYCLINE HYCLATE 100MG TABLET PO ONE (17:10)
[2022-02-16] MEDS ORDERED: DOXY-443 PO (17:15)
[2022-02-16 17:29] VITALS: BP 96/57
== END 2022-02-16 17:38 | disposition home or self-care (01) ==
LOC: M ED 13:21
DX: S91.012A Laceration without foreign body, left ankle, initial encounter (principal); I80.02 Phlebitis and thrombophlebitis of superficial vessels of left lower extremity; L03.116 Cellulitis of left lower limb; I10 Essential (primary) hypertension; F17.200 Nicotine dependence, unspecified, uncomplicated; F10.10 Alcohol abuse, uncomplicated; Z86.79 Personal history of other diseases of the circulatory system; Z87.442 Personal history of urinary calculi; Z88.3 Allergy status to other anti-infective agents; Z79.82 Long term (current) use of aspirin; Z79.811 Long term (current) use of aromatase inhibitors; Z79.899 Other long term (current) drug therapy

== ENCOUNTER 2022-07-08 02:51 | Emergency (ER) | payer MEDICARE, SELFPAY ==
[~2022-07-08] VITALS: Ht 170.2 cm; Wt 93.3 kg
[~2022-07-08 02:51] MED LIST changes: +DOXY-443 PO; +JARD1TAB3 PO
[2022-07-08 02:53] VITALS: BP 91/63
[2022-07-08] MEDS ORDERED: METO25TA4 PO (02:59)
== END 2022-07-08 06:39 | disposition left against medical advice (07) ==
LOC: M ED 02:51
DX: Z53.21 Procedure and treatment not carried out due to patient leaving prior to being seen by health care provider (principal)

== ENCOUNTER 2022-07-29 21:46 | Observation (INO) | payer MEDICARE, SELFPAY ==
[~2022-07-29] VITALS: Ht 170.2 cm; Wt 91.6 kg
[~2022-07-29 21:46] MED LIST changes: -ENTR1TAB7
[2022-07-29 22:32] LABS: BASO # 0.1 10^3/uL (0.0-0.2); BASO % 1.1 % (0.0-1.0); EOS % 0.4 % (0.0-3.0); HEMATOCRIT 45.5 % (42.0-52.0); HEMOGLOBIN 14.7 g/dl (13.5-17.5); LYMPH # 0.5 10^3/uL (1.5-5.0); LYMPH % 8.1 % (24.0-44.0); MEAN CORPUSCULAR HEMOGLOBIN 26.7 pg (27.0-33.0); MEAN CORPUSCULAR HGB CONC 32.3 g/dl (32.0-36.5); MEAN CORPUSCULAR VOLUME 82.7 fl (80.0-96.0); MONO # 0.7 10^3/uL (0.0-0.8); MONO % 13.3 % (2.0-8.0); NEUTROPHILS # 4.3 10^3/uL (1.5-8.5); NEUTROPHILS % 76.9 % (36.0-66.0); PLATELET COUNT, AUTOMATED 153 10^3/uL (150-450); WHITE BLOOD COUNT 5.6 10^3/uL (4.0-10.0)
[2022-07-29 22:41] LABS: CPK CREATINE PHOSPHOKINASE 72 U/L (46-171)
[2022-07-29 22:42] LABS: ALBUMIN 3.6 G/DL (3.2-5.2); ALKALINE PHOSPHATASE 374 U/L (46-116); ALT/SGPT 21 U/L (7.0-40); AST/SGOT 34 U/L (<34); BILIRUBIN,DIRECT 2.6 MG/DL (<0.4); BILIRUBIN,TOTAL 3.7 MG/DL (0.3-1.2); BLOOD UREA NITROGEN 31 MG/DL (9-23); CARBON DIOXIDE LEVEL 28 MMOL/L (20-31); CHLORIDE LEVEL 93 MMOL/L (98-107); CK-MB VALUE MASS < 1.0 NG/ML (<3.6); CREATININE FOR GFR 1.93 MG/DL (0.70-1.30); GLUCOSE, FASTING 103 MG/DL (60-100); MB/CK RELATIVE INDEX 1.38 (< OR =4); SODIUM LEVEL 132 MMOL/L (136-145); TOTAL PROTEIN 6.8 G/DL (5.7-8.2)
[2022-07-29 22:56] LABS: INR 1.2; PROTHROMBIN TIME 15.5 SECONDS (12.5-14.5)
[2022-07-30] VITALS (10 sets, daily range): BP systolic 80–110; BP diastolic 46–76; TEMP 96.3–98; O2SAT 94–98
[2022-07-30] MEDS ORDERED: FUROSEMIDE 100MG/10ML VIAL IV ONE (00:35)
[2022-07-30] MEDS ORDERED: FURO80TA2 PO (00:55)
[2022-07-30] MEDS ORDERED: METO1TAB7 PO (00:55)
[2022-07-30] MEDS ORDERED: HOME MED LIST COMPLETE! XX SCH (01:00)
[2022-07-30] MEDS ORDERED: ACETAMINOPHEN TAB 650MG DOSE (2X325MG) PO PRN (03:10)
[2022-07-30 03:31] LABS: APPEARANCE, URINE MANUAL CLEAR (CLEAR); COLOR, URINE MANUAL YELLOW (YELLOW)
[2022-07-30 03:33] LABS: BILIRUBIN, URINE MANUAL NEGATIVE (NEGATIVE); BLOOD URINE MANUAL NEGATIVE (NEGATIVE); GLUCOSE, URINE (UA) MANUAL 1+(100 MG/DL) mg/dL (NEGATIVE); KETONE, URINE MANUAL NEGATIVE (NEGATIVE); LEUKOCYTE ESTERASE, URINE MAN NEGATIVE (NEGATIVE); NITRITE, URINE MANUAL NEGATIVE (NEGATIVE); PROTEIN, URINE MANUAL NEGATIVE (NEGATIVE); UROBILINOGEN, URINE MANUAL NORMAL (NORMAL)
[2022-07-30] MEDS: HEPARIN SOD (PORCINE) 5000UNITS/ML 1ML VIAL/SYRINGE SC SCH ×3 (06:03→21:26)
[2022-07-30 07:16] LABS: CALCIUM LEVEL 8.5 MG/DL (8.5-10.1); CREATININE FOR GFR 1.9 MG/DL (0.70-1.30); GLOMERULAR FILTRATION RATE 39.7 (>56); POTASSIUM SERUM 3.7 MMOL/L (3.5-5.1)
[2022-07-30] MEDS ORDERED: NS 1,000 ML IV SCH (08:30)
[2022-07-30] MEDS ORDERED: FUROSEMIDE 40MG/4ML VIAL IV SCH (09:00)
[2022-07-30] MEDS ORDERED: METOPROLOL SUCC (TopROL XL) 50MG **XL** TAB PO SCH (09:00)
[2022-07-30] MEDS: ASPIRIN 81MG ENTERIC TABLET PO SCH (09:57)
[2022-07-30] MEDS: NIRMATRELVIR/RITONAVIR (RENAL) CO-PACK (EUA) PO SCH ×2 (09:59→21:25)
[2022-07-30] MEDS ORDERED: NIRM1TAB6 PO ×3 (10:45→11:56)
[2022-07-30] MEDS ORDERED: METO25TA PO (11:09)
[2022-07-30 14:46] LABS: CREATININE FOR GFR 1.9 MG/DL (0.70-1.30); GLOMERULAR FILTRATION RATE 39.7 (>56)
[2022-07-30] MEDS: MIDODRINE 5 MG TAB PO ONE ×2 (15:41→18:29)
[2022-07-30] MEDS ORDERED: MIDODRINE 5 MG TAB PO ONE (23:10)
[2022-07-31 03:39] VITALS: BP 100/59; TEMP 97.7; O2SAT 94
[2022-07-31] MEDS: HEPARIN SOD (PORCINE) 5000UNITS/ML 1ML VIAL/SYRINGE SC SCH ×4 (05:24→20:10)
[2022-07-31 07:49] VITALS: BP 102/58; TEMP 97; O2SAT 92
[2022-07-31] MEDS ORDERED: DIGOXIN INJ 0.5 MG/2 ML AMP IV SCH (09:00)
[2022-07-31 09:08] LABS: CALCIUM LEVEL 8.6 MG/DL (8.5-10.1); CREATININE FOR GFR 1.83 MG/DL (0.70-1.30); GLOMERULAR FILTRATION RATE 41.4 (>56); POTASSIUM SERUM 3.4 MMOL/L (3.5-5.1)
[2022-07-31] MEDS: ASPIRIN 81MG ENTERIC TABLET PO SCH (09:53)
[2022-07-31] MEDS: NIRMATRELVIR/RITONAVIR (RENAL) CO-PACK (EUA) PO SCH ×2 (09:54→20:08)
[2022-07-31] MEDS: NS 1,000 ML IV SCH (09:54)
[2022-07-31] MEDS ORDERED: POTASSIUM CHLORIDE 10MEQ SR TABLET PO ONE ×2 (11:00→15:30)
[2022-07-31 11:39] VITALS: BP 98/64; TEMP 97.4; O2SAT 95
[2022-07-31] MEDS ORDERED: MAG SULF 1GM/100ML (MAG RUN) 1 GM in IV 1 EA IV SCH ×2 (14:00→15:00)
[2022-07-31 14:55] LABS: CALCIUM LEVEL 8.5 MG/DL (8.5-10.1); CREATININE FOR GFR 1.79 MG/DL (0.70-1.30); GLOMERULAR FILTRATION RATE 42.5 (>56); POTASSIUM SERUM 3.7 MMOL/L (3.5-5.1)
[2022-07-31] MEDS ORDERED: CALCIUM GLUCONATE 1,000 MG in D5W MINI-BAG PLUS 100 ML IV ONE (16:00)
[2022-07-31 16:14] VITALS: BP 92/54; TEMP 96.8; O2SAT 94
[2022-07-31 18:09] LABS: CALCIUM LEVEL 8.8 MG/DL (8.5-10.1); CREATININE FOR GFR 1.8 MG/DL (0.70-1.30); GLOMERULAR FILTRATION RATE 42.2 (>56); POTASSIUM SERUM 3.9 MMOL/L (3.5-5.1)
[2022-07-31 20:00] VITALS: BP 139/74; TEMP 97.3; O2SAT 95
[2022-08-01] VITALS: BP 117/68; TEMP 96.4; O2SAT 97
[2022-08-01] MEDS: NS 1,000 ML IV SCH (01:48)
[2022-08-01 04:00] VITALS: BP 119/74; TEMP 97.2; O2SAT 96
[2022-08-01] MEDS: HEPARIN SOD (PORCINE) 5000UNITS/ML 1ML VIAL/SYRINGE SC SCH (05:33)
[2022-08-01 06:08] LABS: ALBUMIN 3.5 G/DL (3.2-5.2); CREATININE FOR GFR 1.7 MG/DL (0.70-1.30); GLOMERULAR FILTRATION RATE 45.1 (>56); PHOSPHORUS LEVEL 5.3 MG/DL (2.5-4.9); POTASSIUM SERUM 3.8 MMOL/L (3.5-5.1)
[2022-08-01 08:26] VITALS: BP 112/65; TEMP 96.9; O2SAT 98
[2022-08-01] MEDS: ASPIRIN 81MG ENTERIC TABLET PO SCH (09:00)
[2022-08-01] MEDS: NIRMATRELVIR/RITONAVIR (RENAL) CO-PACK (EUA) PO SCH (09:40)
[2022-08-01] MEDS ORDERED: NICO14DI24 TOP (19:56)
== END 2022-08-01 09:50 | disposition home health service (06) ==
LOC: M ED 21:46 → M ED INP 21:47 → EDBEDREQ 07-30 01:54 → M PCU 07-30 04:12
PROVIDERS: ADMIT Internal Medicine; ATTEND General Practice
DX: U07.1 COVID-19 (principal); N17.9 Acute kidney failure, unspecified; N18.9 Chronic kidney disease, unspecified; I50.40 Unspecified combined systolic (congestive) and diastolic (congestive) heart failure; E87.1 Hypo-osmolality and hyponatremia; E83.51 Hypocalcemia; E83.39 Other disorders of phosphorus metabolism; F17.210 Nicotine dependence, cigarettes, uncomplicated; Z79.82 Long term (current) use of aspirin; Z79.899 Other long term (current) drug therapy; Z88.8 Allergy status to other drugs, medicaments and biological substances
CPT/HCPCS: 36415; 71046; 80048; 80069; 80076; 81002; 82330; 82550; 82553; 82565; 83735; 83880; 84443; 84484; 85025; 85610; 87486; 87581; 87633; 87798; 93005; 96361; 96374; 97161; 99285; J0612; J1940

== ENCOUNTER 2023-09-04 13:18 | Emergency (ER) | payer MEDICARE, SELFPAY ==
[~2023-09-04] VITALS: Ht 170.2 cm; Wt 85.6 kg
[~2023-09-04 13:18] MED LIST changes: +DOXY-323 PO; -DOXY-443 PO; +METO1TAB7 PO; +NICO14DI24 TOP; +NIRM1TAB6 PO
[2023-09-04] MEDS: BOOSTRIX VACCINE (TETANUS/DIPHTH/ACEL. PERTUSSIS) 0.5ML SYR IM ONE (20:18)
[2023-09-04] MEDS: CEPHALEXIN 500 MG CAP PO ONE (20:41)
[2023-09-04] MEDS: BACITRACIN OINTMENT 30GM TUBE TOP STA (20:41)
[2023-09-04] MEDS ORDERED: CEPH500C PO (21:17)
[2023-09-04 21:25] VITALS: BP 110/68; TEMP 97.8; O2SAT 96
== END 2023-09-04 21:26 | disposition home or self-care (01) ==
LOC: M ED 13:18
DX: S62.631B Displaced fracture of distal phalanx of left index finger, initial encounter for open fracture (principal); W31.2XXA Contact with powered woodworking and forming machines, initial encounter; Y92.009 Unspecified place in unspecified non-institutional (private) residence as the place of occurrence of the external cause; Y93.H3 Activity, building and construction; Y99.8 Other external cause status; I11.0 Hypertensive heart disease with heart failure; I50.20 Unspecified systolic (congestive) heart failure; E11.9 Type 2 diabetes mellitus without complications; Z95.0 Presence of cardiac pacemaker; Z88.8 Allergy status to other drugs, medicaments and biological substances; Z79.899 Other long term (current) drug therapy; Z79.82 Long term (current) use of aspirin

== ENCOUNTER → 2023-09-22 | Outpatient (CLI) | payer MEDICARE ==
[~2023-09-22] MED LIST changes: +CEPH500C PO
== END ==
LOC: M PLAIMG 12:58
PROVIDERS: ATTEND Physician Assistant
DX: S62.631A Displaced fracture of distal phalanx of left index finger, initial encounter for closed fracture (principal); Y93.9 Activity, unspecified; Y92.9 Unspecified place or not applicable

== ENCOUNTER → 2023-10-12 | Outpatient (CLI) | payer MEDICARE | LOC: M SOG 08:00 | PROVIDERS: ATTEND Physician Assistant | DX: S62.631A Displaced fracture of distal phalanx of left index finger, initial encounter for closed fracture (principal); Y93.9 Activity, unspecified; Y92.9 Unspecified place or not applicable ==

== ENCOUNTER 2023-11-11 10:58 | Inpatient (IN) | payer MEDICARE ==
[2023-11-11] VITALS (10 sets, daily range): BP systolic 109–114; BP diastolic 67–76; TEMP 97.2–97.9; O2SAT 95–100
[~2023-11-11] VITALS: Ht 167.6 cm; Wt 92.5 kg
[~2023-11-11 10:58] MED LIST changes: -DOXY-323 PO; +DOXY-441 PO
[2023-11-11] MEDS ORDERED: THERTAB52 PO (11:24)
[2023-11-11] MEDS ORDERED: GARL500C6 PO (11:24)
[2023-11-11 12:55] LABS: BASO % 0.3 % (0.0-1.0); EOS % 0.1 % (0.0-3.0); HEMATOCRIT 42.3 % (42.0-52.0); HEMOGLOBIN 13.9 g/dl (13.5-17.5); LYMPH # 0.3 10^3/uL (1.5-5.0); MEAN CORPUSCULAR HEMOGLOBIN 27.6 pg (27.0-33.0); MEAN CORPUSCULAR HGB CONC 32.9 g/dl (32.0-36.5); MEAN CORPUSCULAR VOLUME 83.9 fl (80.0-96.0); MONO # 0.6 10^3/uL (0.0-0.8); MONO % 5.4 % (2.0-8.0); NEUTROPHILS # 9.5 10^3/uL (1.5-8.5); NEUTROPHILS % 90.9 % (36.0-66.0); PLATELET COUNT, AUTOMATED 184 10^3/uL (150-450); RED BLOOD COUNT 5.04 10^6/uL (4.30-6.10); WHITE BLOOD COUNT 10.5 10^3/uL (4.0-10.0)
[2023-11-11] MEDS ORDERED: FUROSEMIDE 100MG/10ML VIAL IV ONE (13:30)
[2023-11-11 13:37] LABS: ALBUMIN 3.9 G/DL (3.2-5.2); BILIRUBIN,DIRECT 2.5 MG/DL (<0.4); BILIRUBIN,TOTAL 3.6 MG/DL (0.3-1.2); CALCIUM LEVEL 9.2 MG/DL (8.5-10.1); CREATININE FOR GFR 5.19 MG/DL (0.70-1.30); GLOMERULAR FILTRATION RATE 12.3 (>56); MB/CK RELATIVE INDEX 1.25 (< OR =4); POTASSIUM SERUM 3.7 MMOL/L (3.5-5.1)
[2023-11-11 14:15] LABS: INR 1.32; PARTIAL THROMBOPLASTIN TIME 38.1 SECONDS (24.8-34.2)
[2023-11-11] MEDS ORDERED: FUROSEMIDE injection 250 MG in D5W 225 ML IV SCH (14:40)
[2023-11-11] MEDS: LIDOCAINE 2% 5ML JELLY UROJET TOP ONE (14:42)
[2023-11-11] MEDS: FUROSEMIDE injection 250 MG in D5W 225 ML IV SCH ×2 (15:00→15:15)
[2023-11-11 15:51] LABS: ABG BASE EXCESS -1.7 (-2.0-2.0); ABG HCO3 22.3 MMOL/L (22.0-26.0); ABG O2 SATURATION 95.3 % (95.0-99.0); ABG PARTIAL PRESSURE CO2 35.7 mmHg (35.0-45.0); ABG PARTIAL PRESSURE O2 73.1 mmHg (75.0-100.0); ABG TOTAL CO2 23.4 MMOL/L (22.0-29.0); ABG pH (ARTERIAL) 7.414 UNITS (7.350-7.450)
[2023-11-11 16:03] LABS: THYROID STIMULATING HORMONE 7.63 uIU/ML (0.55-4.78)
[2023-11-11] MEDS: cefTRIAXone SOD 1 GM in D5W MINI-BAG PLUS 50 ML IV ONE ×2 (16:04→20:05)
[2023-11-11] MEDS ORDERED: LORazepam 2 MG TAB PO PRN (16:35)
[2023-11-11] MEDS ORDERED: THIAMINE 200MG 2ML VIAL IV SCH (16:35)
[2023-11-11] MEDS: FOLIC ACID 1MG TAB PO SCH (17:08)
[2023-11-11] MEDS: LACTULOSE 20GM/30ML SYRUP UDC PO STA (17:09)
[2023-11-11 17:28] LABS: APPEARANCE, URINE CLOUDY (CLEAR); BACTERIA, URINE AUTO 1+ (NEGATIVE); BILIRUBIN, URINE AUTO NEGATIVE (NEGATIVE); BLOOD, URINE BLOOD 3+ (NEGATIVE); COLOR, URINE YELLOW (YELLOW); GLUCOSE, URINE (UA) AUTO NEGATIVE (NEGATIVE); KETONE, URINE AUTO NEGATIVE (NEGATIVE); LEUKOCYTE ESTERASE, URINE AUTO 3+ (NEGATIVE); MUCUS, URINE SMALL (NEGATIVE); NITRITE, URINE AUTO NEGATIVE (NEGATIVE); PROTEIN, URINE AUTO NEGATIVE (NEGATIVE); RBC, URINE AUTO 70 /HPF (0-3); SPECIFIC GRAVITY URINE AUTO 1.009 (1.002-1.035); SQUAMOUS EPITHELIAL CELL UR AU 0 /HPF (0-6); UROBILINOGEN, URINE AUTO 0.2 mg/dL (0.0-2.0); WBC, URINE AUTO TNTC /HPF (0-3)
[2023-11-11] MEDS ORDERED: GARL1000 PO (17:49)
[2023-11-11] MEDS ORDERED: HOME MED LIST COMPLETE! XX SCH (17:50)
[2023-11-11] MEDS ORDERED: cefTRIAXone SOD 1 GM in D5W MINI-BAG PLUS 50 ML IV SCH (18:50)
[2023-11-11 20:27] LABS: SOURCE, BODY FLUID ALBUMIN ASCITES
[2023-11-11 20:32] LABS: SOURCE, BODY FLUID GLUCOSE ASCITES
[2023-11-11 20:33] LABS: SOURCE, BODY FLUID ASCITES
[2023-11-11 20:34] LABS: APPEARANCE, BODY FLUID HAZY (CLEAR); ASCITES FL COLOR YELLOW (COLORLESS)
[2023-11-11] MEDS ORDERED: THIAMINE 100 MG TAB PO SCH (21:00)
[2023-11-11] MEDS: POTASSIUM CHLORIDE 10MEQ SR TABLET PO ONE (21:01)
[2023-11-11] MEDS: HEPARIN SOD (PORCINE) 5000UNITS/ML 1ML VIAL/SYRINGE SC SCH (21:02)
[2023-11-11] MEDS: THIAMINE INJection 500 MG in NS 100 ML IV SCH (21:03)
[2023-11-11 21:21] LABS: SOURCE, BODY FLUID TOT PROTEIN ASCITES; TOTAL PROTEIN, BODY FLUID < 2.0 G/DL (NOT ESTABLISHED)
[2023-11-11 22:25] LABS: HEMATOCRIT 39.9 % (42.0-52.0); HEMOGLOBIN 13.2 g/dl (13.5-17.5); MEAN CORPUSCULAR HEMOGLOBIN 27.7 pg (27.0-33.0); MEAN CORPUSCULAR HGB CONC 33.1 g/dl (32.0-36.5); MEAN CORPUSCULAR VOLUME 83.6 fl (80.0-96.0); PLATELET COUNT, AUTOMATED 163 10^3/uL (150-450); RED BLOOD COUNT 4.77 10^6/uL (4.30-6.10); WHITE BLOOD COUNT 11.6 10^3/uL (4.0-10.0)
[2023-11-11 22:54] LABS: ALBUMIN 3.5 G/DL (3.2-5.2); BILIRUBIN,DIRECT 2.6 MG/DL (<0.4); BILIRUBIN,TOTAL 3.4 MG/DL (0.3-1.2); TOTAL PROTEIN 6.4 G/DL (5.7-8.2)
[2023-11-12] VITALS (21 sets, daily range): BP systolic 88–125; BP diastolic 57–78; TEMP 97.2–98.9; O2SAT 94–98
[2023-11-12] MEDS ORDERED: POTASSIUM CHLORIDE 10% LIQ 20MEQ/15ML UDC PO ONE
[2023-11-12 00:06] LABS: CALCIUM LEVEL 8.6 MG/DL (8.5-10.1); CREATININE FOR GFR 5.06 MG/DL (0.70-1.30); GLOMERULAR FILTRATION RATE 12.7 (>56); PHOSPHORUS LEVEL 5.3 MG/DL (2.5-4.9); POTASSIUM SERUM 2.9 MMOL/L (3.5-5.1)
[2023-11-12] MEDS: POTASSIUM CHLORIDE 10% LIQ 20MEQ/15ML UDC PO ONE (01:37)
[2023-11-12 02:06] LABS: ALBUMIN 4.3 G/DL (3.2-5.2); CALCIUM LEVEL 8.8 MG/DL (8.5-10.1); CREATININE FOR GFR 4.99 MG/DL (0.70-1.30); GLOMERULAR FILTRATION RATE 12.9 (>56); MAGNESIUM LEVEL 2.5 MG/DL (1.8-2.4); PHOSPHORUS LEVEL 5.2 MG/DL (2.5-4.9)
[2023-11-12 06:52] LABS: HEMOGLOBIN 13.2 g/dl (13.5-17.5); MEAN CORPUSCULAR HGB CONC 32.2 g/dl (32.0-36.5); PLATELET COUNT, AUTOMATED 142 10^3/uL (150-450); RED BLOOD COUNT 4.88 10^6/uL (4.30-6.10); WHITE BLOOD COUNT 11.2 10^3/uL (4.0-10.0)
[2023-11-12 07:15] LABS: ALBUMIN 4.7 G/DL (3.2-5.2); BILIRUBIN,TOTAL 4.1 MG/DL (0.3-1.2); CALCIUM LEVEL 9.5 MG/DL (8.5-10.1); CREATININE FOR GFR 5.11 MG/DL (0.70-1.30); GLOMERULAR FILTRATION RATE 12.6 (>56); MAGNESIUM LEVEL 2.5 MG/DL (1.8-2.4); PHOSPHORUS LEVEL 5.4 MG/DL (2.5-4.9); POTASSIUM SERUM 3.4 MMOL/L (3.5-5.1); TOTAL PROTEIN 7.2 G/DL (5.7-8.2)
[2023-11-12] MEDS: MULTIVITAMINS/MINERALS THERAP 1 TAB PO SCH (09:00)
[2023-11-12] MEDS: POTASSIUM CHLORIDE 10MEQ SR TABLET PO SCH (09:58)
[2023-11-12] MEDS: cefTRIAXone SOD 2 GM in D5W MINI-BAG PLUS 50 ML IV SCH (09:59)
[2023-11-12] MEDS: LACTULOSE 20GM/30ML SYRUP UDC PO SCH (15:55)
[2023-11-12 17:19] LABS: BLOOD UREA NITROGEN 87 MG/DL (9-23); CALCIUM LEVEL 8.7 MG/DL (8.5-10.1); CARBON DIOXIDE LEVEL 22 MMOL/L (20-31); CHLORIDE LEVEL 95 MMOL/L (98-107); CREATININE FOR GFR 5.37 MG/DL (0.70-1.30); GLOMERULAR FILTRATION RATE 11.9 (>56); GLUCOSE, FASTING 142 MG/DL (60-100); MAGNESIUM LEVEL 2.6 MG/DL (1.8-2.4); POTASSIUM SERUM 3.8 MMOL/L (3.5-5.1); SODIUM LEVEL 129 MMOL/L (136-145)
[2023-11-12] MEDS ORDERED: LR 500 ML IV ONE (19:05)
[2023-11-12] MEDS: MIDODRINE 5 MG TAB PO ONE (20:42)
[2023-11-13] VITALS (8 sets, daily range): BP systolic 105–116; BP diastolic 63–76; TEMP 97–97.9; O2SAT 89–98
[2023-11-13 08:25] LABS: HEMATOCRIT 40.2 % (42.0-52.0); MEAN CORPUSCULAR HEMOGLOBIN 26.9 pg (27.0-33.0); MEAN CORPUSCULAR HGB CONC 32.3 g/dl (32.0-36.5); MEAN CORPUSCULAR VOLUME 83.1 fl (80.0-96.0); PLATELET COUNT, AUTOMATED 150 10^3/uL (150-450); RED BLOOD COUNT 4.84 10^6/uL (4.30-6.10); WHITE BLOOD COUNT 8.5 10^3/uL (4.0-10.0)
[2023-11-13 08:50] LABS: ALBUMIN 3.9 G/DL (3.2-5.2); BILIRUBIN,TOTAL 3.3 MG/DL (0.3-1.2); CALCIUM LEVEL 8.9 MG/DL (8.5-10.1); CREATININE FOR GFR 5.79 MG/DL (0.70-1.30); GLOMERULAR FILTRATION RATE 10.9 (>56); MAGNESIUM LEVEL 2.5 MG/DL (1.8-2.4); POTASSIUM SERUM 3.6 MMOL/L (3.5-5.1); TOTAL PROTEIN 6.4 G/DL (5.7-8.2)
[2023-11-13] MEDS: MIDODRINE 5 MG TAB PO SCH (09:00)
[2023-11-13] MEDS ORDERED: SODIUM CHLORIDE 0.9% 1000ML IV PRN (10:05)
[2023-11-13] MEDS ORDERED: HEPARIN 1,000UNITS/ML 10ML VIAL (FOR RADIOLOGY & DIALYSIS ONLY) IV PRN (10:05)
[2023-11-13] MEDS: ONDANSETRON 4MG 2ML VIAL IV ONE (11:13)
[2023-11-13] MEDS ORDERED: HEPARIN 1,000UNITS/ML 10ML VIAL (FOR RADIOLOGY & DIALYSIS ONLY) ONE (14:45)
[2023-11-13] MEDS ORDERED: LIDOCAINE 1% MDV 20ML VIAL ONE (14:45)
[2023-11-13] MEDS ORDERED: MIDAZOLAM INJ 2MG/2ML VIAL ONE (14:47)
[2023-11-13] MEDS ORDERED: fentaNYL 100 MCG/2 ML INJECTION ONE (14:47)
[2023-11-13 15:56] LABS: HEPATITIS B SURFACE ANTIBODY NEGATIVE (POSITIVE)
[2023-11-13 16:07] LABS: HEPATITIS B SURFACE ANTIGEN NEGATIVE (NEGATIVE)
[2023-11-13 16:28] LABS: HEPATITIS C VIRUS ABY INDEX < 0.02 INDEX (<0.8)
[2023-11-13 16:29] LABS: HEPATITIS B CORE ANTIBODY IGM NEGATIVE (NEGATIVE)
[2023-11-13] MEDS: HEPARIN 1,000UNITS/ML 10ML VIAL (FOR RADIOLOGY & DIALYSIS ONLY) XX SCH (16:45)
[2023-11-14] VITALS (21 sets, daily range): BP systolic 92–121; BP diastolic 52–74; TEMP 97.2–98.9; O2SAT 88–99
[2023-11-14] MEDS ORDERED: HEPARIN 1,000UNITS/ML 10ML VIAL (FOR RADIOLOGY & DIALYSIS ONLY) IV PRN (05:50)
[2023-11-14] MEDS ORDERED: SODIUM CHLORIDE 0.9% 1000ML IV PRN (05:50)
[2023-11-14] MEDS ORDERED: HEPARIN 1,000UNITS/ML 10ML VIAL (FOR RADIOLOGY & DIALYSIS ONLY) XX SCH (05:50)
[2023-11-14 06:18] LABS: HEMATOCRIT 41.3 % (42.0-52.0); HEMOGLOBIN 13.1 g/dl (13.5-17.5); MEAN CORPUSCULAR HGB CONC 31.7 g/dl (32.0-36.5); MEAN CORPUSCULAR VOLUME 85.2 fl (80.0-96.0); PLATELET COUNT, AUTOMATED 104 10^3/uL (150-450); RED BLOOD COUNT 4.85 10^6/uL (4.30-6.10)
[2023-11-14 06:34] LABS: BILIRUBIN,TOTAL 3.1 MG/DL (0.3-1.2); CALCIUM LEVEL 9.1 MG/DL (8.5-10.1); CREATININE FOR GFR 4.64 MG/DL (0.70-1.30); GLOMERULAR FILTRATION RATE 14.1 (>56); MAGNESIUM LEVEL 2.4 MG/DL (1.8-2.4); POTASSIUM SERUM 3.8 MMOL/L (3.5-5.1); TOTAL PROTEIN 6.5 G/DL (5.7-8.2)
[2023-11-14] MEDS: cefTRIAXone SOD 1 GM in D5W MINI-BAG PLUS 50 ML IV SCH (12:47)
[2023-11-15] VITALS (10 sets, daily range): BP systolic 94–128; BP diastolic 58–80; TEMP 97–97.8; O2SAT 65–100
[2023-11-15 07:09] LABS: BASO % 0.7 % (0.0-1.0); EOS % 0.7 % (0.0-3.0); HEMATOCRIT 41.6 % (42.0-52.0); LYMPH # 0.5 10^3/uL (1.5-5.0); LYMPH % 9.2 % (24.0-44.0); MEAN CORPUSCULAR HEMOGLOBIN 27.1 pg (27.0-33.0); MEAN CORPUSCULAR HGB CONC 31.3 g/dl (32.0-36.5); MEAN CORPUSCULAR VOLUME 86.8 fl (80.0-96.0); MONO # 0.7 10^3/uL (0.0-0.8); MONO % 12.5 % (2.0-8.0); NEUTROPHILS # 4.2 10^3/uL (1.5-8.5); NEUTROPHILS % 76.5 % (36.0-66.0); RED BLOOD COUNT 4.79 10^6/uL (4.30-6.10); WHITE BLOOD COUNT 5.5 10^3/uL (4.0-10.0)
[2023-11-15 07:32] LABS: ALBUMIN 3.8 G/DL (3.2-5.2); BILIRUBIN,TOTAL 2.9 MG/DL (0.3-1.2); CREATININE FOR GFR 3.9 MG/DL (0.70-1.30); GLOMERULAR FILTRATION RATE 17.2 (>56); MAGNESIUM LEVEL 2.2 MG/DL (1.8-2.4); POTASSIUM SERUM 3.6 MMOL/L (3.5-5.1); TOTAL PROTEIN 6.3 G/DL (5.7-8.2)
[2023-11-15 07:43] LABS: PLATELET COUNT, AUTOMATED 57 10^3/uL (150-450)
[2023-11-16] VITALS (7 sets, daily range): BP systolic 92–107; BP diastolic 61–76; TEMP 97.2–98.1; O2SAT 94–97
[2023-11-16] MEDS ORDERED: SODIUM CHLORIDE 0.9% 1000ML IV PRN (06:00)
[2023-11-16] MEDS ORDERED: HEPARIN 1,000UNITS/ML 10ML VIAL (FOR RADIOLOGY & DIALYSIS ONLY) XX SCH (06:00)
[2023-11-16 06:01] LABS: HEMATOCRIT 40.9 % (42.0-52.0); HEMOGLOBIN 12.8 g/dl (13.5-17.5); MEAN CORPUSCULAR HEMOGLOBIN 27.2 pg (27.0-33.0); MEAN CORPUSCULAR HGB CONC 31.3 g/dl (32.0-36.5); MEAN CORPUSCULAR VOLUME 86.8 fl (80.0-96.0); RED BLOOD COUNT 4.71 10^6/uL (4.30-6.10); WHITE BLOOD COUNT 4.8 10^3/uL (4.0-10.0)
[2023-11-16 06:03] LABS: PLATELET COUNT, AUTOMATED 57 10^3/uL (150-450)
[2023-11-16 06:25] LABS: ALBUMIN 3.8 G/DL (3.2-5.2); BILIRUBIN,TOTAL 3.1 MG/DL (0.3-1.2); CALCIUM LEVEL 9.3 MG/DL (8.5-10.1); CREATININE FOR GFR 4.63 MG/DL (0.70-1.30); GLOMERULAR FILTRATION RATE 14.1 (>56); MAGNESIUM LEVEL 2.2 MG/DL (1.8-2.4); POTASSIUM SERUM 3.5 MMOL/L (3.5-5.1); TOTAL PROTEIN 6.3 G/DL (5.7-8.2)
[2023-11-16] MEDS: HEPARIN 1,000UNITS/ML 10ML VIAL (FOR RADIOLOGY & DIALYSIS ONLY) IV PRN (10:35)
[2023-11-17 04:00] VITALS: BP 118/67; TEMP 97.9; O2SAT 95
[2023-11-17 05:39] LABS: HEMATOCRIT 41.4 % (42.0-52.0); HEMOGLOBIN 12.9 g/dl (13.5-17.5); MEAN CORPUSCULAR HEMOGLOBIN 27.1 pg (27.0-33.0); MEAN CORPUSCULAR HGB CONC 31.2 g/dl (32.0-36.5); RED BLOOD COUNT 4.76 10^6/uL (4.30-6.10)
[2023-11-17 05:45] LABS: PLATELET COUNT, AUTOMATED 30 10^3/uL (150-450)
[2023-11-17 06:07] LABS: ALBUMIN 3.8 G/DL (3.2-5.2); BILIRUBIN,TOTAL 3.5 MG/DL (0.3-1.2); CALCIUM LEVEL 9.6 MG/DL (8.5-10.1); CREATININE FOR GFR 3.58 MG/DL (0.70-1.30); MAGNESIUM LEVEL 2.1 MG/DL (1.8-2.4); POTASSIUM SERUM 3.5 MMOL/L (3.5-5.1); TOTAL PROTEIN 6.4 G/DL (5.7-8.2)
[2023-11-17 08:00] VITALS: BP 94/53; TEMP 98.2; O2SAT 91
[2023-11-17 10:39] LABS: CLOSTRIDIUM DIFFICILE PCR POSITIVE (NEGATIVE)
[2023-11-17 12:00] VITALS: BP 98/71; TEMP 98.1; O2SAT 90
[2023-11-17] MEDS: FIDAXOMICIN 200 MG TAB (DIFICID) PO SCH (14:35)
[2023-11-17 16:00] VITALS: BP 110/68; TEMP 98.1; O2SAT 91
[2023-11-17 21:12] VITALS: BP 108/75; TEMP 97.9
[2023-11-18] VITALS: BP 92/59; TEMP 97.7; O2SAT 91
[2023-11-18 04:00] VITALS: BP 101/75; TEMP 97.9; O2SAT 92
[2023-11-18] MEDS ORDERED: HEPARIN 1,000UNITS/ML 10ML VIAL (FOR RADIOLOGY & DIALYSIS ONLY) IV PRN (06:00)
[2023-11-18] MEDS ORDERED: SODIUM CHLORIDE 0.9% 1000ML IV PRN (06:00)
[2023-11-18] MEDS ORDERED: LIDOCAINE 1% SDV 5ML VIAL SC PRN (06:00)
[2023-11-18 06:47] LABS: BASO % 0.9 % (0.0-1.0); EOS # 0.1 10^3/uL (0.0-0.5); EOS % 1.7 % (0.0-3.0); HEMATOCRIT 42.8 % (42.0-52.0); HEMOGLOBIN 13.5 g/dl (13.5-17.5); LYMPH # 0.6 10^3/uL (1.5-5.0); LYMPH % 13.7 % (24.0-44.0); MEAN CORPUSCULAR HEMOGLOBIN 27.1 pg (27.0-33.0); MEAN CORPUSCULAR HGB CONC 31.5 g/dl (32.0-36.5); MEAN CORPUSCULAR VOLUME 85.8 fl (80.0-96.0); MONO # 0.6 10^3/uL (0.0-0.8); MONO % 15.1 % (2.0-8.0); NEUTROPHILS # 2.9 10^3/uL (1.5-8.5); NEUTROPHILS % 68.1 % (36.0-66.0); RED BLOOD COUNT 4.99 10^6/uL (4.30-6.10); WHITE BLOOD COUNT 4.2 10^3/uL (4.0-10.0)
[2023-11-18 06:49] LABS: PLATELET COUNT, AUTOMATED 36 10^3/uL (150-450)
[2023-11-18 07:10] LABS: ALBUMIN 3.7 G/DL (3.2-5.2); BILIRUBIN,TOTAL 3.6 MG/DL (0.3-1.2); CALCIUM LEVEL 9.4 MG/DL (8.5-10.1); CREATININE FOR GFR 3.91 MG/DL (0.70-1.30); GLOMERULAR FILTRATION RATE 17.1 (>56); MAGNESIUM LEVEL 2.1 MG/DL (1.8-2.4); PHOSPHORUS LEVEL 2.5 MG/DL (2.5-4.9); POTASSIUM SERUM 3.4 MMOL/L (3.5-5.1); TOTAL PROTEIN 6.2 G/DL (5.7-8.2)
[2023-11-18] MEDS: HEPARIN 1,000UNITS/ML 10ML VIAL (FOR RADIOLOGY & DIALYSIS ONLY) XX SCH (10:49)
[2023-11-18 21:49] VITALS: BP 82/58; TEMP 97.9; O2SAT 97
[2023-11-18 23:16] VITALS: BP 96/68; TEMP 97.9; O2SAT 90
[2023-11-19 02:45] VITALS: BP 106/72; TEMP 97.9; O2SAT 97
[2023-11-19 05:00] VITALS: BP 105/52; TEMP 98.8; O2SAT 98
[2023-11-19 06:44] LABS: CALCIUM LEVEL 8.3 MG/DL (8.5-10.1); CREATININE FOR GFR 2.98 MG/DL (0.70-1.30); GLOMERULAR FILTRATION RATE 23.4 (>56); POTASSIUM SERUM 3.6 MMOL/L (3.5-5.1)
[2023-11-19 08:00] VITALS: BP 100/63; TEMP 98.1; O2SAT 97
[2023-11-19 12:00] VITALS: BP 106/68; TEMP 97.7; O2SAT 98
[2023-11-19 14:37] LABS: BASO % 0.6 % (0.0-1.0); EOS # 0.1 10^3/uL (0.0-0.5); EOS % 1.2 % (0.0-3.0); HEMATOCRIT 43.2 % (42.0-52.0); HEMOGLOBIN 13.1 g/dl (13.5-17.5); LYMPH # 0.4 10^3/uL (1.5-5.0); LYMPH % 6.4 % (24.0-44.0); MEAN CORPUSCULAR HEMOGLOBIN 26.4 pg (27.0-33.0); MEAN CORPUSCULAR HGB CONC 30.3 g/dl (32.0-36.5); MEAN CORPUSCULAR VOLUME 87.1 fl (80.0-96.0); MONO # 0.4 10^3/uL (0.0-0.8); MONO % 6.6 % (2.0-8.0); NEUTROPHILS # 5.7 10^3/uL (1.5-8.5); NEUTROPHILS % 84.9 % (36.0-66.0); RED BLOOD COUNT 4.96 10^6/uL (4.30-6.10); WHITE BLOOD COUNT 6.7 10^3/uL (4.0-10.0)
[2023-11-19 14:41] LABS: PLATELET COUNT, AUTOMATED 22 10^3/uL (150-450)
[2023-11-19 20:37] VITALS: BP 108/75; TEMP 97.7; O2SAT 97
[2023-11-20 00:06] VITALS: BP 104/60; TEMP 97.9; O2SAT 97
[2023-11-20 04:00] VITALS: BP 102/62; TEMP 98.1; O2SAT 94
[2023-11-20 06:09] LABS: BASO % 0.7 % (0.0-1.0); EOS # 0.2 10^3/uL (0.0-0.5); EOS % 2.8 % (0.0-3.0); HEMATOCRIT 41.9 % (42.0-52.0); HEMOGLOBIN 12.9 g/dl (13.5-17.5); LYMPH # 0.5 10^3/uL (1.5-5.0); LYMPH % 8.7 % (24.0-44.0); MEAN CORPUSCULAR HEMOGLOBIN 26.5 pg (27.0-33.0); MEAN CORPUSCULAR HGB CONC 30.8 g/dl (32.0-36.5); MONO # 0.6 10^3/uL (0.0-0.8); NEUTROPHILS # 4.7 10^3/uL (1.5-8.5); NEUTROPHILS % 77.6 % (36.0-66.0); RED BLOOD COUNT 4.87 10^6/uL (4.30-6.10); WHITE BLOOD COUNT 6.1 10^3/uL (4.0-10.0)
[2023-11-20 06:12] LABS: PLATELET COUNT, AUTOMATED 31 10^3/uL (150-450)
[2023-11-20 06:33] LABS: CALCIUM LEVEL 8.8 MG/DL (8.5-10.1); CREATININE FOR GFR 3.41 MG/DL (0.70-1.30); GLOMERULAR FILTRATION RATE 20.1 (>56); POTASSIUM SERUM 3.4 MMOL/L (3.5-5.1)
[2023-11-20 08:00] VITALS: BP 101/69; TEMP 98.1; O2SAT 96
[2023-11-20] MEDS: POTASSIUM CHLORIDE 10MEQ SR TABLET PO ONE (09:40)
[2023-11-20] MEDS ORDERED: MAGNESIUM OXIDE 400MG TAB (MAG-OX) PO ONE (11:00)
[2023-11-20 12:00] VITALS: BP 101/69; TEMP 96.8; O2SAT 96
[2023-11-20 16:00] VITALS: BP 111/82; TEMP 97.9; O2SAT 97
[2023-11-20] MEDS: THIAMINE 100 MG TAB PO SCH (17:11)
[2023-11-20 20:21] VITALS: BP 100/70; TEMP 98.4; O2SAT 98
[2023-11-20] MEDS ORDERED: MAGNESIUM OXIDE 400MG TAB (MAG-OX) PO SCH (21:00)
[2023-11-21 00:55] VITALS: BP 103/67; TEMP 97.7; O2SAT 95
[2023-11-21 03:57] VITALS: BP 102/72; TEMP 97.7; O2SAT 94
[2023-11-21] MEDS ORDERED: HEPARIN 1,000UNITS/ML 10ML VIAL (FOR RADIOLOGY & DIALYSIS ONLY) IV PRN (06:00)
[2023-11-21] MEDS ORDERED: LIDOCAINE 1% SDV 5ML VIAL SC PRN (06:00)
[2023-11-21] MEDS ORDERED: SODIUM CHLORIDE 0.9% 1000ML IV PRN (06:00)
[2023-11-21 06:07] LABS: BASO % 0.7 % (0.0-1.0); EOS # 0.1 10^3/uL (0.0-0.5); EOS % 2.4 % (0.0-3.0); HEMATOCRIT 42.3 % (42.0-52.0); HEMOGLOBIN 13.3 g/dl (13.5-17.5); LYMPH # 0.6 10^3/uL (1.5-5.0); LYMPH % 10.3 % (24.0-44.0); MEAN CORPUSCULAR HEMOGLOBIN 26.8 pg (27.0-33.0); MEAN CORPUSCULAR HGB CONC 31.4 g/dl (32.0-36.5); MEAN CORPUSCULAR VOLUME 85.3 fl (80.0-96.0); MONO # 0.6 10^3/uL (0.0-0.8); NEUTROPHILS # 4.4 10^3/uL (1.5-8.5); NEUTROPHILS % 76.3 % (36.0-66.0); RED BLOOD COUNT 4.96 10^6/uL (4.30-6.10); WHITE BLOOD COUNT 5.8 10^3/uL (4.0-10.0)
[2023-11-21 06:12] LABS: PLATELET COUNT, AUTOMATED 40 10^3/uL (150-450)
[2023-11-21 06:35] LABS: CALCIUM LEVEL 8.5 MG/DL (8.5-10.1); CREATININE FOR GFR 3.38 MG/DL (0.70-1.30); GLOMERULAR FILTRATION RATE 20.3 (>56); MAGNESIUM LEVEL 2.1 MG/DL (1.8-2.4); POTASSIUM SERUM 3.9 MMOL/L (3.5-5.1)
[2023-11-21] MEDS: HEPARIN 1,000UNITS/ML 10ML VIAL (FOR RADIOLOGY & DIALYSIS ONLY) XX SCH (11:27)
[2023-11-21 12:55] VITALS: BP 108/78; TEMP 98.1; O2SAT 100
[2023-11-21 16:00] VITALS: BP 98/65; TEMP 98.8; O2SAT 97
[2023-11-21 19:32] VITALS: BP 95/63; TEMP 98.6; O2SAT 96
[2023-11-21 23:59] VITALS: BP 95/72; TEMP 98.2; O2SAT 96
[2023-11-22 04:19] VITALS: BP 97/70; TEMP 97.9; O2SAT 99
[2023-11-22] MEDS ORDERED: SODIUM CHLORIDE 0.9% 1000ML IV PRN (06:00)
[2023-11-22] MEDS ORDERED: LIDOCAINE 1% SDV 5ML VIAL SC PRN (06:00)
[2023-11-22] MEDS ORDERED: HEPARIN 1,000UNITS/ML 10ML VIAL (FOR RADIOLOGY & DIALYSIS ONLY) IV PRN (06:00)
[2023-11-22 08:00] VITALS: BP 112/77; TEMP 97.5; O2SAT 100
[2023-11-22] MEDS: HEPARIN 1,000UNITS/ML 10ML VIAL (FOR RADIOLOGY & DIALYSIS ONLY) XX SCH (11:12)
[2023-11-22 12:30] VITALS: BP 108/79; TEMP 98.1; O2SAT 99
[2023-11-22] MEDS ORDERED: FIDA200TA PO (13:42)
[2023-11-22] MEDS ORDERED: NICO2GUM MT (13:42)
[2023-11-22] MEDS ORDERED: THIA100TA PO (13:42)
[2023-11-22] MEDS ORDERED: FOLI1TAB11 PO (13:42)
[2023-11-22] MEDS ORDERED: LACT20EL PO (13:42)
[2023-11-22] MEDS ORDERED: MIDO5TA PO (13:42)
[2023-11-22] MEDS ORDERED: VANC1CAP6 PO (14:03)
[2023-11-22 14:34] LABS: HEMATOCRIT 42.3 % (42.0-52.0); HEMOGLOBIN 13.3 g/dl (13.5-17.5); MEAN CORPUSCULAR HGB CONC 31.4 g/dl (32.0-36.5); MEAN CORPUSCULAR VOLUME 85.8 fl (80.0-96.0); RED BLOOD COUNT 4.93 10^6/uL (4.30-6.10)
[2023-11-22 14:35] LABS: PLATELET COUNT, AUTOMATED 12 10^3/uL (150-450)
[2023-11-22 15:00] LABS: CALCIUM LEVEL 8.2 MG/DL (8.5-10.1); CREATININE FOR GFR 1.67 MG/DL (0.70-1.30); GLOMERULAR FILTRATION RATE 45.7 (>56)
== END 2023-11-22 14:48 | disposition home health service (06) | DRG 673 ==
LOC: M ED 10:58 → M ED INP 16:49 → M PCU 18:08 → M MSPAV 11-16 20:49
PROVIDERS: ADMIT Student in an Organized Health Care Education/Training Program; ATTEND Student in an Organized Health Care Education/Training Program
PROC: 0W9G3ZZ Drainage of Peritoneal Cavity, Percutaneous Approach (ICD-10-PCS; 2023-11-11)
PROC: 02H633Z Insertion of Infusion Device into Right Atrium, Percutaneous Approach (ICD-10-PCS; 2023-11-13)
PROC: 0JH60XZ Insertion of Tunneled Vascular Access Device into Chest Subcutaneous Tissue and Fascia, Open Approach (ICD-10-PCS; principal; 2023-11-13 14:30)
PROC: 5A1D70Z Performance of Urinary Filtration, Intermittent, Less than 6 Hours Per Day (ICD-10-PCS; 2023-11-14)
DX: N17.9 Acute kidney failure, unspecified (principal); G93.41 Metabolic encephalopathy; I50.43 Acute on chronic combined systolic (congestive) and diastolic (congestive) heart failure; I42.9 Cardiomyopathy, unspecified; N39.0 Urinary tract infection, site not specified; E87.1 Hypo-osmolality and hyponatremia; A04.72 Enterocolitis due to Clostridium difficile, not specified as recurrent; I95.9 Hypotension, unspecified; D64.9 Anemia, unspecified; K76.82 Hepatic encephalopathy; N18.6 End stage renal disease; K70.31 Alcoholic cirrhosis of liver with ascites; F10.20 Alcohol dependence, uncomplicated; F17.200 Nicotine dependence, unspecified, uncomplicated; Z79.82 Long term (current) use of aspirin; Z79.899 Other long term (current) drug therapy; Z88.8 Allergy status to other drugs, medicaments and biological substances; D69.6 Thrombocytopenia, unspecified; Z95.1 Presence of aortocoronary bypass graft; R00.0 Tachycardia, unspecified; Z66 Do not resuscitate

== ENCOUNTER → 2023-11-13 | Outpatient (CLI) | payer MEDICARE ==
[~2023-11-13] MED LIST changes: +DOXY-323 PO; -DOXY-441 PO; +GARL1000 PO; +GARL500C6 PO; +HEPARIN 1,000UNITS/ML 10ML VIAL (FOR RADIOLOGY & DIALYSIS ONLY) As Ordered ONE; +LIDOCAINE 1% MDV 20ML VIAL As Ordered ONE; +MIDAZOLAM INJ 2MG/2ML VIAL As Ordered ONE; +THERTAB52 PO; +fentaNYL 100 MCG/2 ML INJECTION As Ordered ONE
== END ==
LOC: M SOG 07:21
PROVIDERS: ATTEND Physician Assistant
DX: S62.631D Displaced fracture of distal phalanx of left index finger, subsequent encounter for fracture with routine healing (principal); Z53.9 Procedure and treatment not carried out, unspecified reason

== ENCOUNTER → 2023-12-01 | Outpatient (CLI) | payer MEDICARE ==
[~2023-12-01] MED LIST changes: -DOXY-323 PO; +DOXY-441 PO; +FIDA200TA PO; +FOLI1TAB11 PO; -HEPARIN 1,000UNITS/ML 10ML VIAL (FOR RADIOLOGY & DIALYSIS ONLY) As Ordered ONE; +LACT20EL PO; -LIDOCAINE 1% MDV 20ML VIAL As Ordered ONE; -MIDAZOLAM INJ 2MG/2ML VIAL As Ordered ONE; +MIDO5TA PO; +NICO2GUM MT; +VANC1CAP6 PO; -fentaNYL 100 MCG/2 ML INJECTION As Ordered ONE
[2023-12-01 11:11] LABS: BASO # 0.1 10^3/uL (0.0-0.2); BASO % 1.3 % (0.0-1.0); EOS % 0.8 % (0.0-3.0); HEMATOCRIT 39.8 % (42.0-52.0); LYMPH # 0.6 10^3/uL (1.5-5.0); MEAN CORPUSCULAR HEMOGLOBIN 27.2 pg (27.0-33.0); MEAN CORPUSCULAR HGB CONC 32.7 g/dl (32.0-36.5); MEAN CORPUSCULAR VOLUME 83.3 fl (80.0-96.0); MONO # 0.4 10^3/uL (0.0-0.8); MONO % 10.2 % (2.0-8.0); NEUTROPHILS # 2.9 10^3/uL (1.5-8.5); NEUTROPHILS % 72.4 % (36.0-66.0); RED BLOOD COUNT 4.78 10^6/uL (4.30-6.10); WHITE BLOOD COUNT 3.9 10^3/uL (4.0-10.0)
[2023-12-01 11:24] LABS: PLATELET COUNT, AUTOMATED 61 10^3/uL (150-450)
[2023-12-01 11:29] LABS: INR 1.6; PROTHROMBIN TIME 18.5 SECONDS (12.5-14.5)
[2023-12-01 11:30] LABS: HEMOGLOBIN A1c 5.5 % (4.0-6.0)
[2023-12-01 11:38] LABS: THYROID STIMULATING HORMONE 7.052 uIU/ML (0.55-4.78); TOTAL 25(OH) VITAMIN D 34.1 NG/ML (20.0-100.0)
[2023-12-01 11:40] LABS: ALBUMIN 3.5 G/DL (3.2-5.2); BILIRUBIN,TOTAL 4.3 MG/DL (0.3-1.2); CALCIUM LEVEL 8.9 MG/DL (8.5-10.1); CHOLESTEROL RISK RATIO 4.31 (<5); CREATININE FOR GFR 3.72 MG/DL (0.70-1.30); GLOMERULAR FILTRATION RATE 18.1 (>56); HDL CHOLESTEROL 16.7 MG/DL (>40); LDL CHOLESTEROL 35.1 MG/DL (<100); MAGNESIUM LEVEL 2.1 MG/DL (1.8-2.4); NON-HDL-C 55.3 MG/DL; POTASSIUM SERUM 3.5 MMOL/L (3.5-5.1); TOTAL PROTEIN 6.6 G/DL (5.7-8.2)
== END ==
LOC: M LAB 10:29
PROVIDERS: ATTEND Nurse Practitioner Family
DX: K74.60 Unspecified cirrhosis of liver (principal); E66.9 Obesity, unspecified; E07.9 Disorder of thyroid, unspecified

== ENCOUNTER 2023-12-13 16:16 | Inpatient (IN) | payer MEDICARE ==
[~2023-12-13] VITALS: Ht 170.2 cm; Wt 92.2 kg
[2023-12-13 19:16] LABS: BASO # 0.1 10^3/uL (0.0-0.2); BASO % 0.6 % (0.0-1.0); EOS % 0.4 % (0.0-3.0); HEMATOCRIT 40.8 % (42.0-52.0); HEMOGLOBIN 13.3 g/dl (13.5-17.5); LYMPH # 0.5 10^3/uL (1.5-5.0); MEAN CORPUSCULAR HEMOGLOBIN 25.8 pg (27.0-33.0); MEAN CORPUSCULAR HGB CONC 32.6 g/dl (32.0-36.5); MEAN CORPUSCULAR VOLUME 79.1 fl (80.0-96.0); MONO # 0.6 10^3/uL (0.0-0.8); MONO % 6.2 % (2.0-8.0); NEUTROPHILS # 8.5 10^3/uL (1.5-8.5); NEUTROPHILS % 87.3 % (36.0-66.0); RED BLOOD COUNT 5.16 10^6/uL (4.30-6.10); WHITE BLOOD COUNT 9.8 10^3/uL (4.0-10.0)
[2023-12-13 19:19] LABS: PLATELET COUNT, AUTOMATED 22 10^3/uL (150-450)
[2023-12-13 20:21] LABS: ALBUMIN 3.3 G/DL (3.2-5.2); ALKALINE PHOSPHATASE 673 U/L (46-116); ALT/SGPT 29 U/L (7.0-40); AST/SGOT 71 U/L (<34); BILIRUBIN,DIRECT 4.2 MG/DL (<0.4); BILIRUBIN,TOTAL 6.3 MG/DL (0.3-1.2); BLOOD UREA NITROGEN 14 MG/DL (9-23); CARBON DIOXIDE LEVEL 23 MMOL/L (20-31); CHLORIDE LEVEL 99 MMOL/L (98-107); CREATININE FOR GFR 2.95 MG/DL (0.70-1.30); GLOMERULAR FILTRATION RATE 23.7 (>56); GLUCOSE, FASTING 97 MG/DL (60-100); POTASSIUM SERUM 4.3 MMOL/L (3.5-5.1); SODIUM LEVEL 130 MMOL/L (136-145); THYROID STIMULATING HORMONE 8.709 uIU/ML (0.55-4.78); THYROXINE (T4) 4.2 UG/DL (4.5-10.9); TOTAL PROTEIN 6.2 G/DL (5.7-8.2)
[2023-12-13] MEDS: NS 500 ML IV ONE (20:22)
[2023-12-13 20:40] LABS: ETHYL ALCOHOL (ETHANOL) < 0.003 % (0.000-0.010)
[2023-12-13 20:54] LABS: PROCALCITONIN 1.54 ng/ml
[2023-12-13 21:21] LABS: VENOUS BASE EXCESS -0.8 (-2.0-2.0); VENOUS HCO3 23.5 MMOL/L (23.0-27.0); VENOUS O2 SATURATION 95.1 % (60.0-80.0); VENOUS PARTIAL PRESSURE CO2 37.8 mmHg (38.0-50.0); VENOUS PARTIAL PRESSURE O2 74.8 mmHg (30.0-50.0); VENOUS PH 7.412 UNITS (7.330-7.430); VENOUS STANDARD HCO3 23.8 MMOL/L; VENOUS TOTAL CO2 24.7 MMOL/L (24.0-28.0)
[2023-12-13 21:22] LABS: INR 1.71; PARTIAL THROMBOPLASTIN TIME 42.9 SECONDS (24.8-34.2); PROTHROMBIN TIME 19.5 SECONDS (12.5-14.5)
[2023-12-13] MEDS: PIPERACILLIN/TAZOBACTAM SOD 4.5 GM in DEXTROSE 5% (D5W) ADV/MINI-BAG 50 ML IV ONE (21:37)
[2023-12-13] MEDS ORDERED: MIDO5TA PO (22:56)
[2023-12-13] MEDS ORDERED: FOLI1TAB11 PO (22:56)
[2023-12-13] MEDS ORDERED: CONS10SO3 PO (22:56)
[2023-12-13] MEDS ORDERED: HOME MED LIST COMPLETE! XX SCH (23:00)
[2023-12-14] VITALS (21 sets, daily range): BP systolic 92–98; BP diastolic 61–67; TEMP 96.5–97; O2SAT 88–99
[2023-12-14] MEDS ORDERED: ACETAMINOPHEN 325 MG TAB PO PRN (00:05)
[2023-12-14] MEDS ORDERED: MAALOX 30 ML SUSP *UDC PO PRN (00:05)
[2023-12-14] MEDS: MIDODRINE 5 MG TAB PO SCH (00:37)
[2023-12-14 02:32] LABS: INR 1.84; PARTIAL THROMBOPLASTIN TIME 64.4 SECONDS (24.8-34.2); PROTHROMBIN TIME 20.6 SECONDS (12.5-14.5)
[2023-12-14 02:34] LABS: C REACTIVE PROTEIN QUANTITATIV 2.9 MG/DL (<1.0)
[2023-12-14 02:35] LABS: MAGNESIUM LEVEL 2.1 MG/DL (1.8-2.4)
[2023-12-14 02:38] LABS: FERRITIN 57.6 NG/ML (10.5-307.3)
[2023-12-14 03:12] LABS: PROCALCITONIN 1.51 ng/ml
[2023-12-14] MEDS: REMDESIVIR 200 MG in NS 250 ML IV ONE (04:59)
[2023-12-14] MEDS: FOLIC ACID 1MG TAB PO SCH (08:53)
[2023-12-14] MEDS: MULTIVITAMINS/MINERALS THERAP 1 TAB PO SCH (08:53)
[2023-12-14] MEDS: LACTULOSE 20GM/30ML SYRUP UDC PO SCH (08:53)
[2023-12-15] VITALS (14 sets, daily range): BP systolic 102–136; BP diastolic 63–92; TEMP 96.3–98.7; O2SAT 84–99
[2023-12-15] MEDS: REMDESIVIR 100 MG in NS 100 ML IV SCH (04:40)
[2023-12-15 05:38] LABS: HEMATOCRIT 40.4 % (42.0-52.0); MEAN CORPUSCULAR HEMOGLOBIN 25.8 pg (27.0-33.0); MEAN CORPUSCULAR HGB CONC 32.2 g/dl (32.0-36.5); MEAN CORPUSCULAR VOLUME 80.2 fl (80.0-96.0); RED BLOOD COUNT 5.04 10^6/uL (4.30-6.10); WHITE BLOOD COUNT 4.7 10^3/uL (4.0-10.0)
[2023-12-15 05:39] LABS: PLATELET COUNT, AUTOMATED 41 10^3/uL (150-450)
[2023-12-15 05:57] LABS: BILIRUBIN,TOTAL 5.1 MG/DL (0.3-1.2); CALCIUM LEVEL 8.9 MG/DL (8.5-10.1); CREATININE FOR GFR 4.03 MG/DL (0.70-1.30); GLOMERULAR FILTRATION RATE 16.5 (>56); MAGNESIUM LEVEL 2.2 MG/DL (1.8-2.4); POTASSIUM SERUM 3.5 MMOL/L (3.5-5.1); TOTAL PROTEIN 6.1 G/DL (5.7-8.2)
[2023-12-15] MEDS ORDERED: HEPARIN 1,000UNITS/ML 10ML VIAL (FOR RADIOLOGY & DIALYSIS ONLY) IV PRN (06:00)
[2023-12-15] MEDS ORDERED: SODIUM CHLORIDE 0.9% 1000ML IV PRN (06:00)
[2023-12-15] MEDS: HEPARIN 1,000UNITS/ML 10ML VIAL (FOR RADIOLOGY & DIALYSIS ONLY) XX SCH (09:56)
[2023-12-15] MEDS ORDERED: DEXA6TAB PO (13:44)
[2023-12-18 18:23] LABS: HEP INDUCED PLT AB PATIENT OD 0.724 OD UNITS (<=0.300); HEPARIN INDUCED PLATELET ABY Positive (Negative)
[2023-12-19 10:28] LABS: UNFRACTIONATED HEPARIN HI DOSE 4 % Release; UNFRACTIONATED HEPARIN INTERP Negative (Negative); UNFRACTIONATED HEPARIN LOW 1 % Release; UNFRACTIONATED HEPARIN LOW DOS 0 % Release
== END 2023-12-15 15:24 | disposition home or self-care (01) | DRG 177 ==
LOC: M ED 16:16 → M ED INP 23:22 → M PCU 12-14 03:17
PROVIDERS: ADMIT Student in an Organized Health Care Education/Training Program; ATTEND Internal Medicine
DX: U07.1 COVID-19 (principal); I50.43 Acute on chronic combined systolic (congestive) and diastolic (congestive) heart failure; N18.6 End stage renal disease; J96.01 Acute respiratory failure with hypoxia; I13.2 Hypertensive heart and chronic kidney disease with heart failure and with stage 5 chronic kidney disease, or end stage renal disease; E87.1 Hypo-osmolality and hyponatremia; I42.9 Cardiomyopathy, unspecified; D69.6 Thrombocytopenia, unspecified; F10.10 Alcohol abuse, uncomplicated; D64.9 Anemia, unspecified; Z88.8 Allergy status to other drugs, medicaments and biological substances; Z66 Do not resuscitate; I08.1 Rheumatic disorders of both mitral and tricuspid valves; F17.200 Nicotine dependence, unspecified, uncomplicated; M54.59 Other low back pain; K80.20 Calculus of gallbladder without cholecystitis without obstruction; Z79.899 Other long term (current) drug therapy; K74.60 Unspecified cirrhosis of liver

== ENCOUNTER 2023-12-15 22:20 | Emergency (ER) | payer MEDICARE ==
[~2023-12-15] VITALS: Ht 170.2 cm; Wt 92.2 kg
[~2023-12-15 22:20] MED LIST changes: +CONS10SO3 PO; +DEXA6TAB PO
[2023-12-15 22:41] VITALS: BP 99/61; TEMP 96; O2SAT 100
[2023-12-16 02:48] LABS: HEMATOCRIT 35.3 % (42.0-52.0); HEMOGLOBIN 11.5 g/dl (13.5-17.5); LYMPH # 0.3 10^3/uL (1.5-5.0); LYMPH % 2.9 % (24.0-44.0); MEAN CORPUSCULAR HGB CONC 32.6 g/dl (32.0-36.5); MEAN CORPUSCULAR VOLUME 79.7 fl (80.0-96.0); MONO # 0.3 10^3/uL (0.0-0.8); MONO % 3.6 % (2.0-8.0); NEUTROPHILS % 93.1 % (36.0-66.0); RED BLOOD COUNT 4.43 10^6/uL (4.30-6.10); WHITE BLOOD COUNT 8.6 10^3/uL (4.0-10.0)
[2023-12-16 02:49] LABS: PLATELET COUNT, AUTOMATED 19 10^3/uL (150-450)
[2023-12-16 03:00] LABS: INR 1.95; PARTIAL THROMBOPLASTIN TIME 43.6 SECONDS (24.8-34.2); PROTHROMBIN TIME 22.4 SECONDS (12.5-14.5)
== END 2023-12-16 05:33 | disposition home or self-care (01) ==
LOC: EDBD 22:20 → M ED 22:20
DX: I83.891 Varicose veins of right lower extremity with other complications (principal); I10 Essential (primary) hypertension; F32.A Depression, unspecified; N18.6 End stage renal disease; K74.60 Unspecified cirrhosis of liver; Z88.8 Allergy status to other drugs, medicaments and biological substances; Z79.899 Other long term (current) drug therapy

== ENCOUNTER 2023-12-19 14:51 | Inpatient (IN) | payer MEDICARE ==
[~2023-12-19] VITALS: Ht 170.2 cm; Wt 91.3 kg
[2023-12-19] MEDS ORDERED: ISOVUE-370 76% 100ML VIAL As Ordered ONE (16:07)
[2023-12-19 16:11] LABS: VENOUS BASE EXCESS -10.6 (-2.0-2.0); VENOUS HCO3 15.5 MMOL/L (23.0-27.0); VENOUS O2 SATURATION 86.2 % (60.0-80.0); VENOUS PARTIAL PRESSURE CO2 35.6 mmHg (38.0-50.0); VENOUS PARTIAL PRESSURE O2 61.2 mmHg (30.0-50.0); VENOUS PH 7.257 UNITS (7.330-7.430); VENOUS STANDARD HCO3 15.9 MMOL/L; VENOUS TOTAL CO2 16.6 MMOL/L (24.0-28.0)
[2023-12-19 16:14] LABS: BASO % 0.1 % (0.0-1.0); HEMATOCRIT 40.5 % (42.0-52.0); HEMOGLOBIN 13.2 g/dl (13.5-17.5); LYMPH # 0.1 10^3/uL (1.5-5.0); LYMPH % 0.3 % (24.0-44.0); MEAN CORPUSCULAR HEMOGLOBIN 25.8 pg (27.0-33.0); MEAN CORPUSCULAR HGB CONC 32.6 g/dl (32.0-36.5); MEAN CORPUSCULAR VOLUME 79.1 fl (80.0-96.0); MONO # 1.1 10^3/uL (0.0-0.8); MONO % 4.6 % (2.0-8.0); NEUTROPHILS # 22.1 10^3/uL (1.5-8.5); NEUTROPHILS % 94.1 % (36.0-66.0); RED BLOOD COUNT 5.12 10^6/uL (4.30-6.10); WHITE BLOOD COUNT 23.5 10^3/uL (4.0-10.0)
[2023-12-19 16:17] LABS: PLATELET COUNT, AUTOMATED 41 10^3/uL (150-450)
[2023-12-19 16:26] LABS: INR 2.06; PROTHROMBIN TIME 23.3 SECONDS (12.5-14.5)
[2023-12-19] MEDS: methylPREDNISolone 125MG 2ML VIAL IV ONE (16:45)
[2023-12-19 16:46] LABS: ETHYL ALCOHOL (ETHANOL) < 0.003 % (0.000-0.010)
[2023-12-19] MEDS: cefTRIAXone SOD 2 GM in DEXTROSE 5% (D5W) ADV/MINI-BAG 50 ML IV ONE (16:46)
[2023-12-19 16:49] LABS: ALBUMIN 3.3 G/DL (3.2-5.2); ALKALINE PHOSPHATASE 691 U/L (40-129); ALT/SGPT 49 U/L (7.0-40); AST/SGOT 73 U/L (<34); BILIRUBIN,TOTAL 6.9 MG/DL (0.3-1.2); BLOOD UREA NITROGEN 29 MG/DL (9-23); CALCIUM LEVEL 9.2 MG/DL (8.5-10.1); CARBON DIOXIDE LEVEL 17 MMOL/L (20-31); CHLORIDE LEVEL 97 MMOL/L (98-107); CREATININE FOR GFR 3.89 MG/DL (0.70-1.30); GLOMERULAR FILTRATION RATE 17.2 (>56); GLUCOSE, FASTING 112 MG/DL (60-100); POTASSIUM SERUM 4.4 MMOL/L (3.5-5.1); SODIUM LEVEL 131 MMOL/L (136-145); TOTAL PROTEIN 6.5 G/DL (5.7-8.2)
[2023-12-19 16:51] LABS: THYROID STIMULATING HORMONE 8.223 uIU/ML (0.55-4.78)
[2023-12-19] MEDS: IPRATROPIUM 0.5MG/ALBUTEROL 2.5MG INH SOL UD 3ML (DUONEB) NEB PRN (17:00)
[2023-12-19] MEDS ORDERED: DEXA6TAB PO (17:33)
[2023-12-19] MEDS ORDERED: HOME MED LIST COMPLETE! XX SCH (17:35)
[2023-12-19] MEDS ORDERED: LEVALBUTEROL 1.25MG 0.5ML CONCENTRATE NEB NEB PRN (18:10)
[2023-12-19] MEDS: LEVALBUTEROL 1.25MG 0.5ML CONCENTRATE NEB NEB SCH (19:01)
[2023-12-19] MEDS: NICOTINE 21MG/24HR 1 EA TRANSDERMAL TD SCH (19:05)
[2023-12-19] MEDS: DOXYCYCLINE HYCLATE 100MG TABLET PO SCH (21:05)
[2023-12-19] MEDS: LACTULOSE 20GM/30ML SYRUP UDC PO SCH (21:05)
[2023-12-19] MEDS: DOBUTamine HCL 500,000 MCG in IV 1 EA IV SCH (21:05)
[2023-12-19 21:53] VITALS: BP 91/60; TEMP 97.3; O2SAT 97
[2023-12-19] MEDS: PIPERACILLIN/TAZOBACTAM SOD 3.375 GM in DEXTROSE 5% (D5W) ADV/MINI-BAG 50 ML IV SCH (22:13)
[2023-12-19 22:30] VITALS: O2SAT 86
[2023-12-19 23:30] VITALS: BP 102/72; TEMP 97.6; O2SAT 96
[2023-12-20] VITALS (9 sets, daily range): BP systolic 95–140; BP diastolic 61–70; TEMP 96.6–97.5; O2SAT 96–99
[2023-12-20 05:10] LABS: HEMATOCRIT 32.2 % (42.0-52.0); MEAN CORPUSCULAR HEMOGLOBIN 25.1 pg (27.0-33.0); MEAN CORPUSCULAR HGB CONC 33.2 g/dl (32.0-36.5); MEAN CORPUSCULAR VOLUME 75.6 fl (80.0-96.0); RED BLOOD COUNT 4.26 10^6/uL (4.30-6.10)
[2023-12-20 05:11] LABS: HEMOGLOBIN 10.7 g/dl (13.5-17.5); PLATELET COUNT, AUTOMATED 29 10^3/uL (150-450)
[2023-12-20 05:50] LABS: ALBUMIN 2.5 G/DL (3.2-5.2); BILIRUBIN,TOTAL 5.2 MG/DL (0.3-1.2); CALCIUM LEVEL 8.6 MG/DL (8.5-10.1); CREATININE FOR GFR 4.31 MG/DL (0.70-1.30); GLOMERULAR FILTRATION RATE 15.3 (>56); POTASSIUM SERUM 3.7 MMOL/L (3.5-5.1); TOTAL PROTEIN 5.2 G/DL (5.7-8.2)
[2023-12-20] MEDS ORDERED: SODIUM CHLORIDE 0.9% 1000 ML IV PRN (08:40)
[2023-12-20] MEDS ORDERED: LIDOCAINE 1% SDV 5ML VIAL SC PRN (08:40)
[2023-12-20] MEDS ORDERED: HEPARIN 1,000UNITS/ML 10ML VIAL (FOR RADIOLOGY & DIALYSIS ONLY) IV PRN (08:40)
[2023-12-20] MEDS: MIDODRINE 5 MG TAB PO SCH (08:47)
[2023-12-20] MEDS: FOLIC ACID 1MG TAB PO SCH (08:47)
[2023-12-20] MEDS: HEPARIN 1,000UNITS/ML 10ML VIAL (FOR RADIOLOGY & DIALYSIS ONLY) XX SCH (10:50)
[2023-12-20 15:20] LABS: PROCALCITONIN 2.88 ng/ml
[2023-12-20 15:48] LABS: INR 1.97; PARTIAL THROMBOPLASTIN TIME 41.7 SECONDS (24.8-34.2); PROTHROMBIN TIME 22.6 SECONDS (12.5-14.5)
[2023-12-20] MEDS: PIPERACILLIN/TAZOBACTAM SOD 4.5 GM in DEXTROSE 5% (D5W) ADV/MINI-BAG 50 ML IV SCH (16:58)
[2023-12-21] VITALS (11 sets, daily range): BP systolic 94–111; BP diastolic 54–70; TEMP 96.6–97.7; O2SAT 86–99
[2023-12-21] MEDS ORDERED: HEPARIN 1,000UNITS/ML 10ML VIAL (FOR RADIOLOGY & DIALYSIS ONLY) IV PRN (06:00)
[2023-12-21] MEDS ORDERED: LIDOCAINE 1% SDV 5ML VIAL SC PRN (06:00)
[2023-12-21] MEDS ORDERED: SODIUM CHLORIDE 0.9% 1000 ML IV PRN (06:00)
[2023-12-21 07:06] LABS: HEMATOCRIT 31.1 % (42.0-52.0); HEMOGLOBIN 10.3 g/dl (13.5-17.5); MEAN CORPUSCULAR HEMOGLOBIN 25.6 pg (27.0-33.0); MEAN CORPUSCULAR HGB CONC 33.1 g/dl (32.0-36.5); MEAN CORPUSCULAR VOLUME 77.4 fl (80.0-96.0); RED BLOOD COUNT 4.02 10^6/uL (4.30-6.10); WHITE BLOOD COUNT 13.2 10^3/uL (4.0-10.0)
[2023-12-21 07:16] LABS: PLATELET COUNT, AUTOMATED 23 10^3/uL (150-450)
[2023-12-21 07:23] LABS: ALBUMIN 2.4 G/DL (3.2-5.2); BILIRUBIN,TOTAL 5.1 MG/DL (0.3-1.2); CALCIUM LEVEL 8.6 MG/DL (8.5-10.1); CREATININE FOR GFR 3.22 MG/DL (0.70-1.30); GLOMERULAR FILTRATION RATE 21.4 (>56); POTASSIUM SERUM 3.3 MMOL/L (3.5-5.1); TOTAL PROTEIN 5.1 G/DL (5.7-8.2)
[2023-12-21] MEDS: POTASSIUM CHLORIDE 10MEQ SR TABLET PO ONE (12:05)
[2023-12-21] MEDS: LevoFLOXacin 750 MG TABLET PO ONE (12:05)
[2023-12-21] MEDS: HEPARIN 1,000UNITS/ML 10ML VIAL (FOR RADIOLOGY & DIALYSIS ONLY) XX SCH (15:00)
[2023-12-21 19:02] LABS: HEMATOCRIT 31.9 % (42.0-52.0); HEMOGLOBIN 10.5 g/dl (13.5-17.5); MEAN CORPUSCULAR HEMOGLOBIN 25.3 pg (27.0-33.0); MEAN CORPUSCULAR HGB CONC 32.9 g/dl (32.0-36.5); MEAN CORPUSCULAR VOLUME 76.9 fl (80.0-96.0); RED BLOOD COUNT 4.15 10^6/uL (4.30-6.10); WHITE BLOOD COUNT 15.3 10^3/uL (4.0-10.0)
[2023-12-21 19:10] LABS: PLATELET COUNT, AUTOMATED 14 10^3/uL (150-450)
[2023-12-22] VITALS (20 sets, daily range): BP systolic 87–137; BP diastolic 63–76; TEMP 96.8–98; O2SAT 94–99
[2023-12-22 00:48] LABS: BASO % 0.1 % (0.0-1.0); HEMATOCRIT 29.3 % (42.0-52.0); HEMOGLOBIN 9.8 g/dl (13.5-17.5); LYMPH # 0.1 10^3/uL (1.5-5.0); LYMPH % 0.9 % (24.0-44.0); MEAN CORPUSCULAR HEMOGLOBIN 25.6 pg (27.0-33.0); MEAN CORPUSCULAR HGB CONC 33.4 g/dl (32.0-36.5); MEAN CORPUSCULAR VOLUME 76.5 fl (80.0-96.0); MONO # 0.4 10^3/uL (0.0-0.8); MONO % 3.2 % (2.0-8.0); NEUTROPHILS # 12.7 10^3/uL (1.5-8.5); NEUTROPHILS % 95.3 % (36.0-66.0); RED BLOOD COUNT 3.83 10^6/uL (4.30-6.10); WHITE BLOOD COUNT 13.3 10^3/uL (4.0-10.0)
[2023-12-22 00:56] LABS: PLATELET COUNT, AUTOMATED 25 10^3/uL (150-450)
[2023-12-22 05:18] LABS: HEMATOCRIT 29.3 % (42.0-52.0); HEMOGLOBIN 9.8 g/dl (13.5-17.5); MEAN CORPUSCULAR HEMOGLOBIN 25.2 pg (27.0-33.0); MEAN CORPUSCULAR HGB CONC 33.4 g/dl (32.0-36.5); MEAN CORPUSCULAR VOLUME 75.3 fl (80.0-96.0); RED BLOOD COUNT 3.89 10^6/uL (4.30-6.10); WHITE BLOOD COUNT 13.2 10^3/uL (4.0-10.0)
[2023-12-22 05:20] LABS: PLATELET COUNT, AUTOMATED 32 10^3/uL (150-450)
[2023-12-22 05:32] LABS: D-DIMER QUANT 3.25 ug/mL (<0.5); INR 1.51; PROTHROMBIN TIME 18.4 SECONDS (12.5-14.5)
[2023-12-22 05:45] LABS: ALBUMIN 2.4 G/DL (3.2-5.2); ALKALINE PHOSPHATASE 409 U/L (40-129); ALT/SGPT 36 U/L (7.0-40); AST/SGOT 40 U/L (<34); BILIRUBIN,TOTAL 4.4 MG/DL (0.3-1.2); BLOOD UREA NITROGEN 32 MG/DL (9-23); CALCIUM LEVEL 8.7 MG/DL (8.5-10.1); CARBON DIOXIDE LEVEL 23 MMOL/L (20-31); CHLORIDE LEVEL 98 MMOL/L (98-107); CREATININE FOR GFR 3.57 MG/DL (0.70-1.30); GLUCOSE, FASTING 93 MG/DL (60-100); POTASSIUM SERUM 3.4 MMOL/L (3.5-5.1); SODIUM LEVEL 130 MMOL/L (136-145); TOTAL PROTEIN 5.1 G/DL (5.7-8.2)
[2023-12-22] MEDS: LevoFLOXacin 250 MG TABLET PO SCH (06:21)
[2023-12-22] MEDS ORDERED: SODIUM CHLORIDE 0.9% 1000 ML IV PRN (07:50)
[2023-12-22] MEDS ORDERED: HEPARIN 1,000UNITS/ML 10ML VIAL (FOR RADIOLOGY & DIALYSIS ONLY) IV PRN (07:50)
[2023-12-22] MEDS ORDERED: LIDOCAINE 1% SDV 5ML VIAL SC PRN (07:50)
[2023-12-22 07:54] LABS: IRON (FE) 21 UG/DL (65-175); PERCENT SATURATION 9.8 % (19.7-50.0); TOTAL IRON BINDING CAPACITY 215 UG/DL (250-425)
[2023-12-22 07:57] LABS: FERRITIN 69.6 NG/ML (10.5-307.3); FOLATE 12.1 NG/ML (>5.4)
[2023-12-22 08:00] LABS: VITAMIN B12 LEVEL > 2000 PG/ML (211-911)
[2023-12-22] MEDS: HEPARIN 1,000UNITS/ML 10ML VIAL (FOR RADIOLOGY & DIALYSIS ONLY) XX SCH (10:26)
[2023-12-22] MEDS: POTASSIUM CHLORIDE 10MEQ SR TABLET PO SCH (12:43)
[2023-12-22 15:40] LABS: INR 1.43; PARTIAL THROMBOPLASTIN TIME 36.1 SECONDS (24.8-34.2); PROTHROMBIN TIME 17.7 SECONDS (12.5-14.5)
[2023-12-22] MEDS ORDERED: OCTREOTIDE ACETATE 100MCG/ML VIAL **IV ADMINISTRATION ONLY IV SCH (16:00)
[2023-12-22 17:58] LABS: HEMATOCRIT 32.4 % (42.0-52.0); HEMOGLOBIN 10.7 g/dl (13.5-17.5); MEAN CORPUSCULAR HEMOGLOBIN 25.3 pg (27.0-33.0); MEAN CORPUSCULAR VOLUME 76.6 fl (80.0-96.0); RED BLOOD COUNT 4.23 10^6/uL (4.30-6.10); WHITE BLOOD COUNT 13.7 10^3/uL (4.0-10.0)
[2023-12-22 18:00] LABS: PLATELET COUNT, AUTOMATED 26 10^3/uL (150-450)
[2023-12-22] MEDS: OCTREOTIDE ACETATE 100MCG/ML VIAL **IV ADMINISTRATION ONLY IV SCH (18:29)
[2023-12-22 21:59] LABS: BASO % 0.2 % (0.0-1.0); EOS % 0.1 % (0.0-3.0); HEMATOCRIT 31.1 % (42.0-52.0); HEMOGLOBIN 10.3 g/dl (13.5-17.5); LYMPH # 0.2 10^3/uL (1.5-5.0); LYMPH % 1.6 % (24.0-44.0); MEAN CORPUSCULAR HEMOGLOBIN 25.4 pg (27.0-33.0); MEAN CORPUSCULAR HGB CONC 33.1 g/dl (32.0-36.5); MEAN CORPUSCULAR VOLUME 76.6 fl (80.0-96.0); MONO # 0.7 10^3/uL (0.0-0.8); MONO % 5.5 % (2.0-8.0); NEUTROPHILS # 11.9 10^3/uL (1.5-8.5); NEUTROPHILS % 91.8 % (36.0-66.0); RED BLOOD COUNT 4.06 10^6/uL (4.30-6.10); WHITE BLOOD COUNT 12.9 10^3/uL (4.0-10.0)
[2023-12-22 22:02] LABS: PLATELET COUNT, AUTOMATED 30 10^3/uL (150-450)
[2023-12-22 22:14] LABS: D-DIMER QUANT 3.29 ug/mL (<0.5); INR 1.33; PROTHROMBIN TIME 16.7 SECONDS (12.5-14.5)
[2023-12-23 01:48] LABS: HEMATOCRIT 32.3 % (42.0-52.0); HEMOGLOBIN 10.5 g/dl (13.5-17.5); MEAN CORPUSCULAR HEMOGLOBIN 24.6 pg (27.0-33.0); MEAN CORPUSCULAR HGB CONC 32.5 g/dl (32.0-36.5); MEAN CORPUSCULAR VOLUME 75.6 fl (80.0-96.0); RED BLOOD COUNT 4.27 10^6/uL (4.30-6.10); WHITE BLOOD COUNT 10.7 10^3/uL (4.0-10.0)
[2023-12-23 01:55] LABS: PLATELET COUNT, AUTOMATED 26 10^3/uL (150-450)
[2023-12-23 02:01] LABS: D-DIMER QUANT 2.91 ug/mL (<0.5); INR 1.32; PROTHROMBIN TIME 16.6 SECONDS (12.5-14.5)
== END 2023-12-23 03:45 | disposition expired | DRG 871 ==
LOC: M ED 14:51 → M ED INP 18:07 → M PCU 21:46
PROVIDERS: ADMIT Internal Medicine; ATTEND Internal Medicine
PROC: 30233R1 Transfusion of Nonautologous Platelets into Peripheral Vein, Percutaneous Approach (ICD-10-PCS; principal; 2023-12-21)
DX: A41.9 Sepsis, unspecified organism (principal); N18.6 End stage renal disease; J18.9 Pneumonia, unspecified organism; I50.43 Acute on chronic combined systolic (congestive) and diastolic (congestive) heart failure; D65 Disseminated intravascular coagulation [defibrination syndrome]; I13.2 Hypertensive heart and chronic kidney disease with heart failure and with stage 5 chronic kidney disease, or end stage renal disease; I42.8 Other cardiomyopathies; R04.2 Hemoptysis; E87.20 Acidosis, unspecified; J81.1 Chronic pulmonary edema; E87.1 Hypo-osmolality and hyponatremia; K62.5 Hemorrhage of anus and rectum; R18.8 Other ascites; I62.9 Nontraumatic intracranial hemorrhage, unspecified; R57.0 Cardiogenic shock; K74.60 Unspecified cirrhosis of liver; I27.20 Pulmonary hypertension, unspecified; I07.1 Rheumatic tricuspid insufficiency; Z95.810 Presence of automatic (implantable) cardiac defibrillator; F17.200 Nicotine dependence, unspecified, uncomplicated; I95.89 Other hypotension; R74.01 Elevation of levels of liver transaminase levels; D50.9 Iron deficiency anemia, unspecified; E87.6 Hypokalemia; I46.9 Cardiac arrest, cause unspecified; F32.A Depression, unspecified; Z66 Do not resuscitate

== ENCOUNTER → 2023-12-19 | Outpatient (CLI) | payer MEDICARE | LOC: M RAD 12:36 | PROVIDERS: ATTEND Nurse Practitioner Family | DX: R05.9 Cough, unspecified (principal) ==